=== PATIENT | male | born 1980 | race Caucasian/White ===

== ENCOUNTER 2022-06-14 14:04 | Emergency (ER) | payer MEDICARE, SELFPAY ==
[2022-06-14 14:11] VITALS: BP 197/121; PULSE 100; RESP 16; TEMP 36.7; O2SAT 95; BMI 28.8
--- NOTE | 2022-06-14 14:52 | ED_ITS ---
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 He states that he does not have any feeling in his legs and denies any warmth, fever, feelings of illness, swelling or odor coming from his foot. He states he is had history of chronic wounds and significant wounds and he recently moved to the area without access to instructional leader. States that this callus has been shaved off many times by Podiatry in the past, he has used his right lower extremity orthotic brace for the last 1-2 years he states. He states this is an area where he thinks is rubbing because it always comes back. He establish care with Dr. Taurus Garcia and his upcoming primary care appointment is 07/06/2022. He does not yet have a instructional leader here. Related Data Previous Rx's Medication Instructions Recorded mupirocin 2 % topical ointment 1 applic topical BID #15 grams 06/14/22 Allergies Allergy/AdvReac Type Severity Reaction Status Date / Time acetaminophen [From Vicodin] AdvReac Mild Nausea Verified 06/14/22 14:17 hydrocodone [From Vicodin] AdvReac Mild Nausea Verified 06/14/22 14:17 Review of Systems <LIBBY Sewell - Last Filed: 06/14/22 14:58> Review of Systems Narrative: Review of systems is negative for acute abnormalities unless otherwise noted in HPI Patient History <LIBBY Sewell - Last Filed: 06/14/22 14:58> Social History Smoking Status: Never smoker Smoking Status: Never smoker alcohol intake frequency: 0-2 drinks per day Substance Use Type: marijuana Exam <LIBBY Sewell - Last Filed: 06/14/22 14:58> Narrative Exam Narrative: Reviewed vitals signs and nursing notes. General: cooperative, comfortable, in no acute distress, well groomed, in wheelchair HEENT: symmetrical facial expressions, moist mucous membranes Cardiovascular: regular rate and rhythm, no peripheral edema, warm extremities MSK: moves all extremities, neurovascularly intact, no new weakness. Right lateral foot with bony callus over proximal metatarsal, foot is contracted and patient does not have any sensation at baseline, brisk cap refill, palpable pulses, no edema, erythema, warmth, drainage. Skin: brisk capillary refill, without pallor or erythema Neuro: normal speech and cognition, A&O x3, ambulatory, clear speech Psych: mental status is grossly normal, congruent mood, normal affect, pleasant and cooperative Initial Vital Signs Initial Vital Signs: Vital Signs Temperature 98.1 F 06/14/22 14:11 Pulse Rate 100 H 06/14/22 14:11 Respiratory Rate 16 06/14/22 14:11 Blood Pressure 197/121 H 06/14/22 14:11 Pulse Oximetry 95 06/14/22 14:11 Oxygen Delivery Method 06/14/22 14:11 <Earnestine Lopez DO - Last Filed: 06/15/22 09:24> Initial Vital Signs Initial Vital Signs: Vital Signs Temperature 98.1 F 06/14/22 14:11 Pulse Rate 100 H 06/14/22 14:11 Respiratory Rate 16 06/14/22 14:11 Blood Pressure 197/121 H 06/14/22 14:11 Pulse Oximetry 95 06/14/22 14:11 Oxygen Delivery Method 06/14/22 14:11 Course <LIBBY Sewell - Last Filed: 06/14/22 14:58> Orders Ordered: ED Orders 06/14/22 14:31 Consult to Orthopedic Surgery Urgent Vital Signs Vital signs: Vital Signs - 8 hr 06/14/22 14:11 Temperature 98.1 F Pulse Rate 100 H Respiratory Rate 16 Blood Pressure 197/121 H Pulse Oximetry 95 Oxygen Delivery Method Room Air <Earnestine Lopez DO - Last Filed: 06/15/22 09:24> Orders Ordered: ED Orders 06/14/22 14:31 Consult to Orthopedic Surgery Urgent Vital Signs Vital signs: Vital Signs - 8 hr 06/14/22 14:11 Temperature 98.1 F Pulse Rate 100 H Respiratory Rate 16 Blood Pressure 197/121 H Pulse Oximetry 95 Oxygen Delivery Method Room Air MDM - Wound/Laceration <Sanjana FrazierLIBBY - Last Filed: 06/14/22 14:58> [facility] Narrative Medical decision making narrative: This is a 41-year-old male with history of spina bifida and right lower extremity brace who presents to the emergency department with concern about drainage from his right lateral foot callus which is likely from his right lower extremity brace that he wears daily. He has history of left BKA, history of wound infections and came in with concern for infection. There is no warmth, erythema, fluctuance, induration, drainage, or any sign of infection at all. There was no drainage to culture and this appears most like a bony callus without evidence of abscess, cellulitis, malignancy, ulcer, or infection. Patient has an upcoming primary care appointment with Dr. Taurus Garcia on 07/06/2022, a consultation was placed for follow-up with Dr. Krupa Torre from [facility] for Podiatry assessment and orthotic evaluation. Recommend patient have a biopsy of this if this is persistent and not due to his lower extremity splint. Patient is appropriate and amenable to discharge home. Vital signs are stable on repeat examination is unremarkable. Patient has been informed of results. Patient has been given strict return to ER precautions for any new or worsening symptoms. Patient understands to follow up closely with outpatient providers as instructed. Patient understands plan and agrees to discharge home. All questions and concerns answered at this time. Discharge Plan Departure Patient Disposition: Home Clinical Impression: Bony callus Instructions: Calluses and Corns Activity Restrictions/Additional Instructions: *You have been diagnosed with a bony callus or corn. This is most likely rela irina to your lower extremity brace. I placed a consult for Podiatry with Dr. Torre at [facility]. Please call and make an appointment for follow-up. Please apply a Band-Aid with antibiotic ointment and change morning and night, please keep this on while you wear your brace and see if this is helpful. It may be dry and cracked and that is where the drainage come from. If this is not helpful for you, I did improves then please forget about dermatology. See what Dr. Torre has to say about it first. Please call Dr. Garcia as needed beforehand but this should do the trick so you can make an appointment with Dr. Torre. I hope you feel better soon. *What to do: *Please continue to take your regular medications as directed. [ x] New medication prescriptions sent to your pharmacy: [[facility]] [ ] New medication written as a paper prescription [ ] No new medications given *Please follow up with your primary care provider in 2-3 days, call for an appointment. Let them know you were seen in the Emergency Department and that we asked that you be seen for follow-up. We will electronically transmit a record of today's note if your PCP is in our system *If you do not have a primary care provider please contact [phone] to establish care with one of the [facility] primary care providers. *Return to Emergency Department if you should have any new, worsening, or concerning symptoms, such as [fever greater than 101F, chills, worsening pain, persistent vomiting or other bothersome symptoms]. Prescriptions: New mupirocin 2 % ointment 1 applic topical BID Qty: 15 0RF Referrals: Krupa Torre DPM [Physician] - Yair Garcia DO [Primary Care Provider] - Visit Report Forms: Patient Portal/API <Earnestine Lopez DO - Last Filed: 06/15/22 09:24> [facility] I was immediately available in the department for consultation. Documentation has been reviewed. I agree with assessment and plan.
== END 2022-06-14 14:56 | disposition home or self-care (01) ==
PROVIDERS: Emergency Provider Nurse Practitioner Critical Care Medicine; PCP Family Medicine
DX: M25.774 Osteophyte, right foot (principal)
CPT/HCPCS: 99281

== ENCOUNTER 2022-06-15 18:35 | Inpatient (IN) | payer MEDICARE, OTHER, SELFPAY ==
[2022-06-15 18:47] VITALS: BP 202/117; PULSE 93; RESP 16; TEMP 36.9; O2SAT 97; BMI 28.8
--- NOTE | 2022-06-15 21:24 | ED.EXTPRO ---
HPI - Extremity Problem General Chief complaint: Extremity Problem,Nontraumatic Stated complaint: Right elbow pain, Warm, Swollen Time Seen by Provider: 06/15/22 21:24 Source: patient Mode of arrival: Wheelchair History of Present Illness HPI Narrative: 41-year-old male nonsmoker with noncontributory medical history presents with a chief complaint of right elbow pain with redness and warmth of the skin overlying the olecranon over the past day or 2. He denies any obvious injury or overuse. He denies any fever, chills nor nausea or vomiting. He is not dizzy, weak or lightheaded. He is got increased pain with range of motion and improvement with rest. He denies any chest pain or shortness of breath. Related Data Home Medications Medication Instructions Recorded Confirmed mupirocin 2 % topical ointment 1 ea topical BID 06/16/22 06/16/22 Allergies Allergy/AdvReac Type Severity Reaction Status Date / Time hydrocodone [From Vicodin] AdvReac Mild Nausea Verified 06/16/22 15:58 Review of Systems Review of Systems Narrative: GENERAL: Denies chills, fatigue, malaise, fever, sweats. HEENT: Denies sinus pain, ear pain, sore throat, difficulty swallowing, dizziness. RESPIRATORY: Denies dyspnea, cough, wheezing, hemoptysis, sputum. CARDIOVASCULAR: Denies chest pain, palpitations, orthopnea, edema, GASTROINTESTINAL: Denies nausea, vomiting, abdominal pain, diarrhea, constipation, melena. : Denies dysuria, frequency, incontinence, hematuria, urinary retention. MUSCULOSKELETAL: See HP SKIN: See HPI NEUROLOGIC: Denies weakness, headache, numbness, change in speech, confusion, seizures, incoordination. PSYCHIATRIC: No concerning psychosocial issues. 12 point review of systems is negative except for those stated above Patient History Medical History History of left below knee amputation Sacral decubitus ulcer Spina bifida Social History household members: family Smoking Status: Never smoker alcohol intake: current Smoking Status: Never smoker alcohol intake frequency: holidays/special occasions only Substance Use Type: marijuana Exam Narrative Exam Narrative: GENERAL: [41] year old patient appears stated age. Well-developed patient, in mild distress. HEAD: Atraumatic. Normocephalic. EYES: Pupils equal round and reactive. Extraocular motions intact. No scleral icterus. No injection or drainage. ENT: Nose without bleeding, purulent drainage. Throat without erythema, tonsillar hypertrophy or exudate. Airway patent. NECK: Trachea midline. Non tender CARDIOVASCULAR: Regular rate and rhythm without murmurs, gallops, or rubs. RESPIRATORY: Clear to auscultation. Breath sounds equal bilaterally. No wheezes, rales, or rhonchi. GASTROINTESTINAL: Abdomen soft, non-tender, nondistended. EXTREMITIES: Full but slightly painful range of motion of right elbow with erythema, warmth and mild swelling overlying the olecranon. Patient has full pronation and supination and most range of motion through flexion and extension, septic arthritis is thought to be extremely unlikely. No pain or swelling of upper arm. There is a small break in the skin overlying the bursa, nose induration or fluctuance BACK: Nontender without deformity or crepitance. No flank tenderness. NEURO: AOx3. SKIN: No rash or erythema of visible areas Initial Vital Signs Initial Vital Signs: Vital Signs Temperature 98.5 F 06/15/22 18:47 Pulse Rate 93 H 06/15/22 18:47 Respiratory Rate 16 06/15/22 18:47 Blood Pressure 202/117 H 06/15/22 18:47 Pulse Oximetry 97 06/15/22 18:47 Oxygen Delivery Method 06/15/22 18:47 Procedures Joint Aspiration Joint Asp./Inject. 1: Side of body: right Joint Aspirated: elbow Ultrasound Guidance: No Skin Prep: sterile prep and drape Local Anesthetic: bupivacaine 0.5% Amount of anesthesia used (mL): 4 Needle Size Used: 22G Fluid Obtained: turbid Total fluid obtained (mL): 15 Patient Tolerated Procedure: Well Complications: none Course Orders Ordered: Docusate Sodium (Docusate 100 Mg Capsule) 100 mg PO BID [facility] Last Admin: 06/16/22 20:21 Dose: 100 mg Documented By: PAT Heparin Sodium (Porcine) (Heparin 5,000 Unit/Ml Vial) 5,000 unit SUBCUT BID [facility] Last Admin: 06/16/22 20:21 Dose: 5,000 unit Documented By: PAT Hydromorphone HCl (Hydromorphone 0.5 Mg Inj) 0.5 mg IV Q1H PRN PRN Reason: Pain, Moderate (4-6) Last Admin: 06/17/22 04:28 Dose: 0.5 mg Documented By: Admin: 06/17/22 01:26 Dose: 0.5 mg Documented By: Admin: 06/16/22 21:53 Dose: 0.5 mg Documented By: Admin: 06/16/22 18:24 Dose: 0.5 mg Documented By: LADONNA Lactated Ringer's (Lactated Ringers) 1,000 mls @ 100 mls/hr IV CONT [facility] Last Admin: 06/16/22 18:00 Dose: 100 mls/hr Documented By: LADONNA Vancomycin HCl (Vancomycin) 1,250 mg in 250 mls @ 250 mls/hr IV Q8H [facility] Last Admin: 06/17/22 01:33 Dose: 250 mls/hr Documented By: Infusion: 06/16/22 19:15 Dose: 250 mls/hr Documented By: Admin: 06/16/22 18:15 Dose: 250 mls/hr Documented By: LADONNA Naloxone HCl (Naloxone 0.4 Mg/Ml Vial) 0.2 mg IV Q2MIN PRN PRN Reason: Opiate Reversal Ondansetron HCl (Ondansetron 4 Mg Odt) 4 mg PO Q4HR PRN PRN Reason: Nausea And Vomiting Oxycodone HCl (Oxycodone Ir 5 Mg Tablet) 5 mg PO Q3HR PRN PRN Reason: Pain, Mild (1-3) Last Admin: 06/17/22 00:31 Dose: 5 mg Documented By: PAT Oxycodone HCl (Oxycodone Ir 10 Mg Tablet) 10 mg PO Q3HR PRN PRN Reason: Pain, Moderate (4-6) Last Admin: 06/17/22 02:52 Dose: 10 mg Documented By: PAT Vancomycin HCl (Vancomycin Trough) 1 request MIS 1730 [facility] Stop: 06/17/22 17:31 Vancomycin HCl (Vancomycin Peak) 1 [place] [facility] [place] [facility] Stop: 06/17/22 20:01 Discontinued Medications Acetaminophen (Acetaminophen 325 Mg Tablet) 975 mg PO PACUNOW PRN PRN Reason: Pain, Mild (1-3) Last Admin: 06/16/22 17:01 Dose: 975 mg Documented By: LULY Benzocaine (Benzocaine/Menthol 1 Malcom Pkt) 1 each PO PRN PRN PRN Reason: Sore Throat Bupivacaine HCl (Bupivacaine 0.5% (Pf) Vial) 5 ml SUBCUT NOW ONE Stop: 06/15/22 23:03 Last Admin: 06/15/22 23:17 Dose: 5 ml Documented By: PHILLIP Bupivacaine HCl/Epinephrine Bitart (Bupivacaine 0.25% W/ Epi 30 Ml Vial) 30 ml INJ NOW ONE Stop: 06/16/22 15:58 Last Admin: 06/16/22 15:58 Dose: 8 ml Documented By: NATALI Fentanyl (Fentanyl 100 Mcg/2 Ml Inj) 0 mcg IV Q5M PRN PRN Reason: Pain, Moderate (4-6) Hydromorphone HCl (Hydromorphone 0.5 Mg Inj) 0.5 mg IV NOW ONE Stop: 06/16/22 02:36 Last Admin: 06/16/22 02:56 Dose: 0.5 mg Documented By: PAT Hydromorphone HCl (Hydromorphone 0.5 Mg Inj) 0.5 mg IV Q2H PRN PRN Reason: Pain, Moderate (4-6) Last Admin: 06/16/22 12:14 Dose: 0.5 mg Documented By: Admin: 06/16/22 09:13 Dose: 0.5 mg Documented By: Admin: 06/16/22 06:09 Dose: 0.5 mg Documented By: PAT Hydromorphone HCl (Hydromorphone 2 Mg Inj) 0 mg IV Q5M PRN PRN Reason: Pain, Moderate (4-6) Last Admin: 06/16/22 16:37 Dose: 0.5 mg Documented By: LULY Hydromorphone HCl (Hydromorphone 1 Mg Inj) 0.5 mg IV Q1H PRN PRN Reason: Pain, Moderate (4-6) Hydroxyzine HCl (Hydroxyzine 50 Mg/Ml Inj) 25 mg IM NOW PRN PRN Reason: Pain, Mild (1-3) Hydroxyzine Pamoate (Hydroxyzine Pamoate 25 Mg Capsule) 25 mg PO NOW PRN PRN Reason: Pain, Mild (1-3) Sodium Chloride (Normal Saline 0.9%) 500 mls @ 1,000 mls/hr IV BOLUS ONE Stop: 06/16/22 02:40 Last Infusion: 06/16/22 07:49 Dose: 0 mls/hr Documented By: Admin: 06/16/22 03:23 Dose: 1,000 mls/hr Documented By: PAT Vancomycin HCl/Dextrose (Vancomycin) 2,000 mg in 400 mls @ 200 mls/hr IV NOW ONE Stop: 06/16/22 04:34 Last Infusion: 06/16/22 07:48 Dose: 0 mls/hr Documented By: Admin: 06/16/22 02:56 Dose: 200 mls/hr Documented By: PAT Lactated Ringer's (Lactated Ringers) 1,000 mls @ 42 mls/hr IV CONT [facility] Last Admin: 06/16/22 14:08 Dose: 42 mls/hr Documented By: KAYLEIGH Vancomycin HCl/Dextrose (Vancomycin) 2,000 mg in 400 mls @ 200 mls/hr IV NOW ONE Stop: 06/16/22 16:47 Last Admin: 06/16/22 17:44 Dose: Not Given Documented By: LADONNA Cefazolin Sodium/Dextrose (Ancef) 100 mls @ 200 mls/hr IV NOW ONE Stop: 06/16/22 16:25 Last Infusion: 06/16/22 15:40 Dose: 0 mls/hr Documented By: KAYLEIGH(2) Admin: 06/16/22 15:26 Dose: 200 mls/hr Documented By: KAYLEIGH(2) Lactated Ringer's (Lactated Ringers) 1,000 mls @ 42 mls/hr IV CONT [facility] Last Admin: 06/16/22 17:44 Dose: Not Given Documented By: LADONNA Lactated Ringer's (Lactated Ringers) 1,000 mls @ 120 mls/hr IV CONT [facility] Last Admin: 06/16/22 17:44 Dose: Not Given Documented By: LADONNA Lorazepam (Lorazepam 2 Mg/Ml Inj) 0.25 mg IV NOW PRN PRN Reason: Anxiety Metoclopramide HCl (Metoclopramide 10 Mg/2 Ml Inj) 10 mg IV NOW PRN PRN Reason: Nausea And Vomiting Ondansetron HCl (Ondansetron 4 Mg/2 Ml Inj) 4 mg IV NOW ONE Stop: 06/16/22 02:36 Last Admin: 06/16/22 04:07 Dose: 4 mg Documented By: PAT Ondansetron HCl (Ondansetron 4 Mg/2 Ml Inj) 4 mg IV NOW PRN PRN Reason: Nausea And Vomiting Consultations Consultation #1: Discussed with on-call orthopedist given concern for possible septic arthritis. After discussion of history, physical including labs and imaging we agree that patient is appropriate for the operating room and Dr. Combs will take later today. Vital Signs Vital signs: Vital Signs - 8 hr 06/16/22 00:41 06/16/22 00:41 06/16/22 01:00 Pulse Rate 75 Blood Pressure 183/113 H 175/100 H Pulse Oximetry 97 06/16/22 01:00 06/16/22 01:15 06/16/22 01:15 Pulse Rate 85 84 Blood Pressure 177/98 H Pulse Oximetry 94 93 06/16/22 01:30 06/16/22 01:30 06/16/22 01:45 Pulse Rate 82 Blood Pressure 174/99 H 181/105 H Pulse Oximetry 93 06/16/22 01:45 06/16/22 02:00 06/16/22 02:00 Pulse Rate 91 H 91 H Blood Pressure 191/111 H Pulse Oximetry 96 95 06/16/22 02:23 06/16/22 02:23 Pulse Rate 90 Blood Pressure 180/118 H Pulse Oximetry 97 MDM - Extremity (Nontraumatic) Lab Data Result diagrams: 06/16/22 02:20 06/16/22 02:20 Labs: Lab Results 06/16/22 06/16/22 06/16/22 Range/Units 00:20 00:20 02:20 WBC 11.1 H (4.5-11.0) X10^3/uL RBC 5.00 (4.5-5.9) X10^6/uL Hgb 15.3 (13.5-17.5) g/dL Hct 45.1 (41-53) % MCV 90.3 (80-100) fL MCH 30.7 (26-34) PG MCHC 34.0 (30-36) % RDW 12.8 (11.6-14.8) % Plt Count 293 (150-400) X10^3/uL Neut % (Auto) 74.0 (50-75) % Lymph % (Auto) 15.8 L (25-40) % [place] % (Auto) 7.4 (3-14) % Eos % (Auto) 2.4 (2-4) % Baso % (Auto) 0.4 (0-2) % Neut # (Auto) 8200 H (2863-1125) /uL Lymph # (Auto) 1700 (1759-5312) /uL [place] # (Auto) 800 (0-900) /uL Eos # (Auto) 300 (0-450) /uL Baso # (Auto) 0 (0-100) /uL ESR 7 (0-15) MM/HR Sodium (137-145) mmol/L Potassium (3.4-5.1) mmol/L Chloride (98-107) mmol/L Carbon Dioxide (22-32) mmol/L BUN (9-20) mg/dL Creatinine (0.66-1.25) mg/dL Estimated GFR (>60) mL/min BUN/Creatinine Ratio (6-22) Glucose (70-100) mg/dL Calcium (8.4-10.2) mg/dL C-Reactive Protein (<1.0) mg/dL Fluid Color Yellow Fluid Appearance Cloudy Fluid RBC 6887 /uL Fld Tot Nucleated Cell 53294 /uL Fluid Polynuclear WBCs 99 % Fluid Mononuclear WBCs 1 % Fluid Eosinophils 0 % Fluid Other Cells 0 % Fluid Crystals None present (NONE) Body Fluid Clot Specimen clotted SARS-CoV-2 (PCR) (Negative) 06/16/22 06/16/22 Range/Units 02:20 02:20 WBC (4.5-11.0) X10^3/uL RBC (4.5-5.9) X10^6/uL Hgb (13.5-17.5) g/dL Hct (41-53) % MCV (80-100) fL MCH (26-34) PG MCHC (30-36) % RDW (11.6-14.8) % Plt Count (150-400) X10^3/uL Neut % (Auto) (50-75) % Lymph % (Auto) (25-40) % [place] % (Auto) (3-14) % Eos % (Auto) (2-4) % Baso % (Auto) (0-2) % Neut # (Auto) (2650-8214) /uL Lymph # (Auto) (2299-2530) /uL [place] # (Auto) (0-900) /uL Eos # (Auto) (0-450) /uL Baso # (Auto) (0-100) /uL ESR (0-15) MM/HR Sodium 140 (137-145) mmol/L Potassium 4.3 (3.4-5.1) mmol/L Chloride 107 (98-107) mmol/L Carbon Dioxide 26 (22-32) mmol/L BUN 13 (9-20) mg/dL Creatinine 0.75 (0.66-1.25) mg/dL Estimated GFR > 60 (>60) mL/min BUN/Creatinine Ratio 17.3 (6-22) Glucose 124 H (70-100) mg/dL Calcium 9.4 (8.4-10.2) mg/dL C-Reactive Protein 2.7 H (<1.0) mg/dL Fluid Color Fluid Appearance Fluid RBC /uL Fld Tot Nucleated Cell /uL Fluid Polynuclear WBCs % Fluid Mononuclear WBCs % Fluid Eosinophils % Fluid Other Cells % Fluid Crystals (NONE) Body Fluid Clot SARS-CoV-2 (PCR) Negative (Negative) Discharge Plan Departure Patient Disposition: Admitted to Surgery Clinical Impression: Septic bursitis of elbow Admit Date/Time: 06/16/22 03:06 Admit Provider: Claudine Combs
--- NOTE | 2022-06-15 21:32 | DI.RAD.S_ITS ---
PROCEDURE: XR ELBOW RT MIN 3V INDICATIONS: pain, swelling, redness TECHNIQUE: 3 views of the elbow were acquired. COMPARISON: None. FINDINGS: Bones: No fractures or dislocations. No discrete bony erosions. No suspicious bony lesions. Soft tissues: There is a small to moderate elbow joint effusion. No suspicious soft tissue calcifications. IMPRESSION: 1. Small to moderate elbow joint effusion is nonspecific. Given clinical history, septic arthritis cannot be excluded. Dictated by: Nemesio Grimaldo M.D. on 06/15/2022 at 22:49 Approved by: Nemesio Grimaldo M.D. on 06/15/2022 at 22:50
--- NOTE | 2022-06-15 21:35 | DI.US.S_ITS ---
PROCEDURE: US PERIPH VENOUS UP EXTREM RT INDICATIONS: PAIN AND SWELLING TECHNIQUE: Real-time imaging, as well as color and pulse Doppler interrogation, was performed of the right upper extremity deep veins from the inferior neck to the antecubital fossa. COMPARISON: None. FINDINGS: The internal jugular vein, visualized portions of the subclavian vein, axillary, and brachial veins are free of intraluminal thrombus. Where physically possible, the veins are normally compressible. Color and pulse Doppler demonstrate normal intraluminal flow, with expected phasicity and pulsatility. Additional scanning of the cephalic and basilic veins of the superficial system demonstrate normal compressibility, without thrombus. There is a fluid collection demonstrated anteriorly in the right elbow measuring approximately 3.4 x 6.2 x 0.9 cm. Findings are incompletely evaluated on the current study but suggestive of an elbow joint effusion. IMPRESSION: 1. No evidence of deep venous thrombosis in the right upper extremity. 2. Suspected elbow joint effusion. Dictated by: Nemesio Grimaldo M.D. on 06/15/2022 at 23:43 Approved by: Nemesio Grimaldo M.D. on 06/15/2022 at 23:45
[2022-06-15] MEDS: BUPIVACAINE 0.5% (PF) VIAL 5 ML SUBCUT (23:17)
[2022-06-16] VITALS (49 sets, daily range): BP systolic 127–191; BP diastolic 73–118; PULSE 63–101; RESP 11–21; TEMP 35.9–36.6; O2SAT 88–99; BMI 28.8
[2022-06-16 01:43] LABS: Body Fluid Appearance CLOUDY; Body Fluid Clotted? SPECIMEN CLOTTED; Body Fluid Color YELLOW; Body Fluid Red Blood Cells 6887 /uL; Body Fluid Tot Nucleated Cells 45988 /uL; Eosinophils Body Fluid 0 %; Mononuclear WBC Body Fluid 1 %; Other Cells Body Fluid 0 %; Polynuclear WBC Body Fluid 99 %
[2022-06-16 02:38] LABS: Add Manual Diff / Slide Review NO; Basophils Absolute Auto 0 /uL (0-100); Basophils Percent Auto 0.4 % (0-2); Eosinophils Absolute Auto 300 /uL (0-450); Eosinophils Percent Auto 2.4 % (2-4); Hematocrit 45.1 % (41-53); Hemoglobin 15.3 g/dL (13.5-17.5); Lymphocytes Absolute Auto 1700 /uL (1100-4500); Lymphocytes Percent Auto 15.8 % (25-40); Mean Corpuscular Hemoglobin 30.7 PG (26-34); Mean Corpuscular Volume 90.3 fL (80-100); Monocytes Absolute Auto 800 /uL (0-900); Monocytes Percent Auto 7.4 % (3-14); Neutrophils Absolute Auto 8200 /uL (1500-7000); Platelet Count 293 X10^3/uL (150-400); Red Cell Distribution Width 12.8 % (11.6-14.8); White Blood Cell Count 11.1 X10^3/uL (4.5-11.0)
[2022-06-16 02:56] LABS: BUN Creatinine Ratio 17.3 (6-22); Blood Urea Nitrogen 13 mg/dL (9-20); C-Reactive Protein Quant 2.7 mg/dL (<1.0); Calcium 9.4 mg/dL (8.4-10.2); Carbon Dioxide 26 mmol/L (22-32); Chloride 107 mmol/L (98-107); Estimated Glomerular Filt Rate > 60 mL/min (>60); Glucose 124 mg/dL (70-100); HEMOLYSIS < 15 (0-50); Potassium 4.3 mmol/L (3.4-5.1); Sodium 140 mmol/L (137-145)
[2022-06-16] MEDS: VANCOMYCIN 2,000 MG/400 ML PIGGYBACK 200 MG IV (02:56)
[2022-06-16] MEDS: HYDROMORPHONE 0.5 MG INJ IV ×6 (02:56→21:53)
[2022-06-16 03:01] LABS: COVID19 -Nasal RAPID Negative (Negative)
[2022-06-16 03:06] LABS: Erythrocyte Sedimentation Rate 7 MM/HR (0-15)
[2022-06-16] MEDS: SODIUM CHLORIDE 0.9% 500 ML 1000 ML IV (03:23)
[2022-06-16] MEDS: ONDANSETRON 4 MG/2 ML INJ IV (04:07)
[2022-06-16 06:34] LABS: Crystals Body Fluid - IN-HOUSE NONE Present
--- NOTE | 2022-06-16 07:18 | PM.HP.1 ---
History of Present Illness History of Present Illness Date Patient Seen: 06/16/22 Time Patient Seen: 10:25 Date of Onset of Symptoms: 06/15/22 Chief complaint: Right elbow pain, Warm, Swollen Narrative: 41 yo M hx spina bifida, uses wheel chair, that presents with R elbow pain, swelling. Hx of infections in other areas and toe amputations, left BKA, history of flaps for sacral decubitus ulcers.Recently moved from [place]. Lives with his mother. Works at [employer] ER eval demonstrated effusion, aspiration had 45K cells and 99% PMNs highly suspicious for infection, no organisms or crystals were seen. Pt admitted to Ortho for I&D septic arthritis R elbow. Denies fevers chills. Recently moved. See PCP appointment in a few weeks. Was then ER couple days ago seen for a callus on his right foot lateral border no site of infection and will be following up with the dough braker. Uses the AFO on this side for transfers. He has a prosthetic on the left side status post BKA. Uses lower extremities for transfers otherwise wheelchair dependent Patient History Medical History History of left below knee amputation Sacral decubitus ulcer Spina bifida Family & Social History Safety & Behavioral: Feels Safe in Current Yes Environment Been Physically Hurt or No Threatened By a Person Tobacco & Substance use: Smoking Status Never smoker alcohol intake frequency holiday/special occasion Substance Use Type marijuana Meds Home Medications and Allergies Home Medications Medication Instructions Recorded Confirmed Type mupirocin 2 % topical ointment 1 applic topical BID #15 grams 06/14/22 Rx Allergies Allergy/AdvReac Type Severity Reaction Status Date / Time acetaminophen [From Vicodin] AdvReac Mild Nausea Verified 06/15/22 18:47 hydrocodone [From Vicodin] AdvReac Mild Nausea Verified 06/15/22 18:47 Review of Systems Review of Systems Narrative: Spina bifida. Insensate lower extremities. History of left below-knee amputation. History partial great toe amputation on the right. callus and deformity foot on the right. Wheelchair dependency. Lower extremities for transfer only. No fevers chills nausea or vomiting. No heart or lung problems. History of sacral decubitus ulcer status post flap reconstruction. No chest pain no nausea no vomiting. Ten point review of systems otherwise negative Exam Vital Signs (past 8 hours): - 06/16/22 00:41 06/16/22 00:41 06/16/22 01:00 Pulse Rate 75 Blood Pressure 183/113 H 175/100 H Pulse Oximetry 97 06/16/22 01:00 06/16/22 01:15 06/16/22 01:15 Pulse Rate 85 84 Blood Pressure 177/98 H Pulse Oximetry 94 93 06/16/22 01:30 06/16/22 01:30 06/16/22 01:45 Pulse Rate 82 Blood Pressure 174/99 H 181/105 H Pulse Oximetry 93 06/16/22 01:45 06/16/22 02:00 06/16/22 02:00 Pulse Rate 91 H 91 H Blood Pressure 191/111 H Pulse Oximetry 96 95 06/16/22 02:23 06/16/22 02:23 06/16/22 02:30 Pulse Rate 90 Blood Pressure 180/118 H 176/112 H Pulse Oximetry 97 06/16/22 02:30 06/16/22 02:45 06/16/22 02:45 Pulse Rate 89 86 Blood Pressure 164/107 H Pulse Oximetry 95 94 06/16/22 03:00 06/16/22 03:00 06/16/22 03:30 Pulse Rate 92 H 101 H Blood Pressure 163/105 H Pulse Oximetry 95 94 06/16/22 03:31 06/16/22 03:31 06/16/22 03:45 Pulse Rate 101 H 96 H Blood Pressure 186/101 H Pulse Oximetry 94 92 06/16/22 03:45 06/16/22 04:00 06/16/22 04:00 Pulse Rate 94 H Blood Pressure 187/94 H 181/95 H Pulse Oximetry 91 06/16/22 04:15 06/16/22 04:15 06/16/22 04:30 Pulse Rate 93 H Blood Pressure 180/84 H 156/73 H Pulse Oximetry 89 L 06/16/22 04:30 06/16/22 04:46 06/16/22 04:46 Pulse Rate 91 H 97 H Blood Pressure 183/96 H Pulse Oximetry 90 L 92 Oxygen Delivery Method Room Air Narrative Exam Narrative: Alert oriented male no acute distress. Lying in bed. His prosthetic on the left lower extremity from below-knee amputation. There is and solid AFO on the right lower extremity. Varus foot deformity with the pressure head callus and a superficial ulceration on the lateral border of the foot. No appearance of infection. AFO is worn and old appearing. General exam is alert oriented male no acute distress Respiratory exam is unlabored on room air lungs clear to auscultation Heart regular rate and rhythm HEENT exam normocephalic atraumatic Upper extremity examination. Right upper extremity demonstrates swelling at the elbow. No bursitis. There is a Band-Aid over the area of the lateral aspiration. There is tenderness to palpation at the level of the joint. Moderate tenderness with range of motion and supination pronation. Able to go from 0 extension to 70? of flexion. Significant pain beyond this. No blisters. No open wounds. Demonstrates full wrist and finger range of motion. Normal range of motion left upper extremity Lower extremities. The left lower extremity with prosthetic in place status post BKA Right lower extremity in AFO partial great toe amputation. Callus with a central ulceration superficial on lateral border of foot. No erythema or signs of infection. Insensate lower extremities Objective Imaging X-ray right elbow: My impression: Three views right elbow AP oblique lateral demonstrate no fractures or dislocations. effusion is present. Labs Result Diagrams: 06/16/22 02:20 06/16/22 02:20 Labs: Laboratory Results - last 24 hr 06/16/22 06/16/22 06/16/22 00:20 00:20 02:20 WBC 11.1 H RBC 5.00 Hgb 15.3 Hct 45.1 MCV 90.3 MCH 30.7 MCHC 34.0 RDW 12.8 Plt Count 293 Neut % (Auto) 74.0 Lymph % (Auto) 15.8 L Redwood % (Auto) 7.4 Eos % (Auto) 2.4 Baso % (Auto) 0.4 Neut # (Auto) 8200 H Lymph # (Auto) 1700 [place]wood # (Auto) 800 Eos # (Auto) 300 Baso # (Auto) 0 ESR 7 Sodium Potassium Chloride Carbon Dioxide BUN Creatinine Estimated GFR BUN/Creatinine Ratio Glucose Calcium C-Reactive Protein Fluid Color Yellow Fluid Appearance Cloudy Fluid RBC 6887 Fld Tot Nucleated Cell 14525 Fluid Polynuclear WBCs 99 Fluid Mononuclear WBCs 1 Fluid Eosinophils 0 Fluid Other Cells 0 Fluid Crystals None present Body Fluid Clot Specimen clotted SARS-CoV-2 (PCR) 09/02/22 09/02/22 02:20 02:20 WBC RBC Hgb Hct MCV MCH MCHC RDW Plt Count Neut % (Auto) Lymph % (Auto) Redwood % (Auto) Eos % (Auto) Baso % (Auto) Neut # (Auto) Lymph # (Auto) Redwood # (Auto) Eos # (Auto) Baso # (Auto) ESR Sodium 140 Potassium 4.3 Chloride 107 Carbon Dioxide 26 BUN 13 Creatinine 0.75 Estimated GFR > 60 BUN/Creatinine Ratio 17.3 Glucose 124 H Calcium 9.4 C-Reactive Protein 2.7 H Fluid Color Fluid Appearance Fluid RBC Fld Tot Nucleated Cell Fluid Polynuclear WBCs Fluid Mononuclear WBCs Fluid Eosinophils Fluid Other Cells Fluid Crystals Body Fluid Clot SARS-CoV-2 (PCR) Negative Assessment & Plan Assessment and plan (1) Septic arthritis of elbow, right: Status: Acute Plan NPO for I&D septic arthritis R elbow-- right now OR time around 1:15 pm Saturday 06/16. NPO except meds. scheduled empiric abx. plan to narrow when cultures final. anticipate approx 6 weeks IV abx for septic arthritis CRP 2.7 Cell count 45,000 in with left shift 99% PMNs Regarding foot callus patient will see podiatry outpatient for continued care no signs of infection at the foot. Suspect will need padding and repadding or alteration of his current AFO to reduce pressure in that area. Discussed return to work. 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 I discussed with keep him off for at least 2 weeks and if the IV antibiotic protocol is amenable could potentially return to work once his incision is healed but would plan for at least 2 weeks off of work activities and limited lifting with the left upper extremity until the incision heals up beyond ADLs The risks and benefits of the procedure have been discussed with the patient even opportunity to ask questions. The risks of surgery include but are not limited to infection, malunion, nonunion, persistence of pain, damage to nerves and blood vessels, posttraumatic arthritis, DVT, PE, cardiopulmonary complications and . The patient expressed a thorough understanding of the risks and benefits of surgery and has elected to proceed. Consent was signed. COVID-19 COVID-19 status: Negative Result date/Date tested (Pos, Neg/Pending): 06/16/22 Time Spent With Patient Time with patient: less than 30 minutes Critical Care time: I spent a total of [] minutes of critical care time on this patient's care today; this time is exclusive of procedural time. Quality VTE Deep Vein Thrombosis/Pulmonary Embolism Present on Admission: No
--- NOTE | 2022-06-16 09:55 | PC.NURSE ---
placed on 2L O2 for SPO2 87-88% when sleeping. vitals completed. medicated for pain with improvement from 03/24 to 01/22. appears more comfortable. pt advised of NPO status and pending OR around 1300.
[2022-06-16] MEDS: LACTATED RINGERS 1,000 ML 42 ML IV (14:08)
--- NOTE | 2022-06-16 14:49 | PC.NURSE ---
Pt arrived from ED A&OX3, VSS, afebrile on RA at 1300. He reports mild tenderness to R elbow after pain medication administered in ED. He is assessed and settled into room and then taken to Pre OP at 1330. He states he had been NPO since early in the day 06/15/22.
[2022-06-16] MEDS: CEFAZOLIN 2 GM/100 ML PREMIX 100 ML IV (15:26)
--- NOTE | 2022-06-16 15:39 | SUR.OPER ---
Supine on padded OR bed, head on pillow, left arm secured on padded arm boards at <90 degrees abduction, right arm on arm board with folded blankets, sterile draped and in control of the Surgeon. legs uncrossed, safety belt at thigh, tape over blanket over right lower leg. Pillow under knees, gel pad under right heel.
[2022-06-16] MEDS: BUPIVACAINE 0.25% W/ EPI 30 ML VIAL INJ (15:58)
--- NOTE | 2022-06-16 16:25 | P.OP_ITS ---
Operative Date/Time/Diagnoses Date of procedure: 06/16/22 Time of procedure: 14:25 Pre-op diagnosis: Right elbow septic arthritis Spina bifida Post-op diagnosis: same Procedure & Clinicians Procedure: Arthrotomy and drainage, irrigation septic arthritis right elbow joint CPT code 95343 Same procedure as scheduled: Yes Indications: The patient is a 41-year-old male with a history of spina bifida that presents with acute onset right elbow pain and swelling. He is right-hand dominant. He is wheelchair-bound. He has a history of a left below-knee amputation for infection and right toe amputations for infection. He has also had flaps for sacral decubitus ulcers in the distant past. No recent infections to his knowledge. Recently moved up from [place]. Works at [employer]. He had a 2 day history of increased pain and swelling to the right elbow was brought in and found to have an effusion. This was aspirated in the emergency room which came back with 45,000 cells 99% PMNs. No organisms were seen. No crystals were seen. Due to the high % of PMNs and high cell count he was felt to have high suspicion for septic arthritis and was indicated for operative arthrotomy drainage and washout. He was placed on empiric antibiotics. The risks and benefits of the procedure have been discussed with the patient given the opportunity to ask questions. The risks of surgery include but are not limited to infection, need for additional procedures, persistence of pain, damage to nerves and blood vessels, posttraumatic arthritis, DVT, PE, cardiopulmonary complications and . The patient expressed a thorough understanding of the risks and benefits of surgery and has elected to proceed. Consent was signed . Surgeon: Claudine Combs Click Yes if Unassisted: Yes Anesthesia Type: General and Local Operative Notes Findings: Copious Murky yellow fluid on entry to the radiocapitellar joint. Closure Type: primary Specimen(s): other (Specimen sent for culture and sensitivity) Prosthetic devices, grafts, tissues, transplants, or devices: Medium Hemovac drain placed Applied: drain(s) (Medium Hemovac) Estimated Blood Loss (mL): 5 Blood products transfused: none Tourniquet time (min): 36 Procedure in detail: Patient was seen in the preoperative area the site of surgery marked informed consent confirmed. The patient was brought back to the operating room by the anesthesia team. General anesthetic was administered. The patient was positioned on the operative table supine. All bony prominences well padded. A well-padded brachial tourniquet was placed. The right upper extremities prepped and draped in standard sterile fashion. A formal time-out procedure was performed confirming the patient's side and site of surgery administration of appropriate preoperative antibiotics. The patient had been on scheduled vancomycin he received 2 g of Ancef preoperatively. Attention turned to the right upper extremity gravity was used for exsanguination the tourniquet raised on the arm to 250 mmHg and stayed elevated for 36 minutes. Local anesthetic was infiltrated subcutaneously. Approximately 5 cm incision from the lateral epicondyle towards the posterior border of the ulna across the location of the radiocapitellar joint was taken down through the skin. Next the fascia was opened. The common extensor origin was exposed. This was split in line with the greater of the radial head and but is directly down onto the joint capsule on penetration of the joint there was immediate return of murky yellow fluid. Careful retraction around the capsule allowed exposure of the capitellum and radial head no dissection was taken distal to the radial neck. Cultures were taken. Once the arthrotomy was completed with pulsatile lavage was then introduced and 3 L of saline was washed through the joint. Gloves were changed. Instruments were changed and a new drape placed down. This point the joint was inspected. Cartilage was intact the capitellum and the radial head. No loose bodies were noted. A medium Hemovac drain was opened and placed into the joint and exited out the skin laterally next the capsule was closed with PDS suture with care not to sew in the drain. Tourniquet was released. Hemostasis was achieved. Subcutaneous was closed with 2-0 PDS and 4-0 Monocryl and the skin closed with 4-0 nylon suture. The drain was secured with a Steri-Strip at the skin. Dressing was placed with Xeroform gauze, 4x4s and a Kerlix dressing. All counts were correct. Drapes removed the patient was taken to the recovery room in good condition. There no immediate complications from this procedure. Complications: none Post-operative Condition: stable Disposition: PACU Plan for aftercare: Patient will be admitted to the floor. He will be on scheduled IV antibiotics dosed by pharmacy this will be vancomycin. Antibiotics will be tailored based on cultures. Will be in the hospital until cultures finalized and will be scheduled for for IV and antibiotics at home. Will need a PICC line. Estimate 6 weeks of IV antibiotics for septic arthritis. On discharge home with IV antibiotics he Will need weekly labs with CMP, CBC with differential ESR and CRP for monitoring. Patient will follow up in Orthopedic Clinic in 2 weeks for suture removal. Will plan to keep him off work 2 weeks to reduce the load on his elbow allow for incision healing. Then may return if antibiotic dosing schedule allows. Drain will be removed on postop day 2
[2022-06-16] MEDS: HYDROMORPHONE 2 MG INJ IV (16:37)
[2022-06-16] MEDS: ACETAMINOPHEN 325 MG TABLET 975 MG PO (17:01)
[2022-06-16] MEDS: LACTATED RINGERS 1,000 ML 100 ML IV (18:00)
[2022-06-16] MEDS: VANCOMYCIN 1,250 MG/250 ML PIGGYBACK 250 MG IV (18:15)
--- NOTE | 2022-06-16 18:48 | PC.NURSE ---
Pt returned from PACU at 1715. A&Ox3, VSS, afebrile on RA. +CMS to R hand. He has emesis x1 which passes shortly after an hour, po zofran given. He is able to tolerate few bites of dinner and rest. Incontinent brief changed. Hemovac with minimal out put, dressing to R elbow c/d/i. He reports pain 5/10 controlled well with prn Hydromorphone 0.5mg IV prn. resting quietly easily arousable. SBP initally elevated 170'/100's when in pain. Continuous monitoring. LR at 100 ml/hr, vancomycin piggy back IV antibiotic infusing. Call light in place.
[2022-06-16] MEDS: HEPARIN 5,000 UNIT/ML VIAL 5000 UNIT SUBCUT (20:21)
[2022-06-16] MEDS: DOCUSATE 100 MG CAPSULE PO (20:21)
[2022-06-17] VITALS (9 sets, daily range): BP systolic 145–184; BP diastolic 91–127; PULSE 78–100; RESP 16–18; TEMP 36.3–36.8; O2SAT 93–96
[2022-06-17] MEDS: OXYCODONE IR 5 MG TABLET PO (00:31)
[2022-06-17] MEDS: HYDROMORPHONE 0.5 MG INJ IV ×6 (01:26→23:17)
[2022-06-17] MEDS: VANCOMYCIN 1,250 MG/250 ML PIGGYBACK 250 MG IV ×3 (01:33→17:55)
[2022-06-17] MEDS: OXYCODONE IR 10 MG TABLET PO ×5 (02:52→20:08)
[2022-06-17 05:55] LABS: BUN Creatinine Ratio 12.1 (6-22); Blood Urea Nitrogen 8 mg/dL (9-20); Calcium 8.4 mg/dL (8.4-10.2); Carbon Dioxide 24 mmol/L (22-32); Chloride 104 mmol/L (98-107); Estimated Glomerular Filt Rate > 60 mL/min (>60); Glucose 105 mg/dL (70-100); HEMOLYSIS < 15 (0-50); Sodium 136 mmol/L (137-145)
[2022-06-17 05:57] LABS: Hematocrit 39.6 % (41-53); Hemoglobin 13.6 g/dL (13.5-17.5); Mean Corpuscular HGB Conc 34.2 % (30-36); Mean Corpuscular Volume 90.8 fL (80-100); Platelet Count 240 X10^3/uL (150-400); Red Blood Cell Count 4.36 X10^6/uL (4.5-5.9); Red Cell Distribution Width 12.6 % (11.6-14.8); White Blood Cell Count 6.2 X10^3/uL (4.5-11.0)
[2022-06-17] MEDS: HEPARIN 5,000 UNIT/ML VIAL 5000 UNIT SUBCUT ×2 (08:26→20:10)
[2022-06-17] MEDS: DOCUSATE 100 MG CAPSULE PO ×2 (08:26→20:08)
[2022-06-17] MEDS: diphenhydrAMINE 25 MG TABLET 50 MG PO (08:30)
--- NOTE | 2022-06-17 10:04 | PT.IIE ---
Current Diagnoses Pyogenic arthritis, unspecified (06/16/22) Surgery Performed Operation Date: 06/16/22 13:15 Actual Procedures p I&D elbow infection(Right) - Claudine Combs MD Medical History (Last Reviewed 06/16/22 @ 10:31 by Claudine Combs MD) History of left below knee amputation Sacral decubitus ulcer Spina bifida Physical Therapy Inpatient Evaluation/Re-Eval M1 PT/OT-IP Prior Functional Status Start: 06/17/22 10:39 Freq: NEEDED Status: Active Protocol: Document 06/17/22 10:04 DLM (Rec: 06/17/22 11:22 DL [id number]) Medical Review Prior Functional Status Medical History Reviewed Yes Diet/Fluid Consistency Regular Communication WFL Mobility and Gait Uses manual wheelchair for mobility, he transfers with his right AFO and left LE prosthesis, he can transfer on /off floor and scoot to get to places his wheelchair does not fit Activities of Daily Living and IADL's Independent with basic ADL's. His Mother is doing the cooking and cleaning. Pt works at [employer] at the [employer]. He does all ADL's from a seated position. He gets in/out of the tub for a bath Prior Functional Level (Other details) He reports the bathroom is small and hard to fit his wheelchair in it so he scoots on the floor and uses his arms to get up on the toilet and in/out of tub. He reports a hx of SNF rehab after surgeries or for IV antibiotics. Social History Household Members family Living Arrangements House Number of Floors (Floors) One Floor Number of Stairs To Enter/Railing? ramp which he reports as steep Home Environment Standard Height Toilet,Tub/ Shower,Ramp Home Equipment Manual Wheelchair,Power Wheelchair/Scooter Additional Social History Comment He takes paratransit in his manual wheelchair. He has an electric wheelchair but does not have a charging cable (lost in move) so can not use. He is right handed. M2 PT-IP Current Condition Start: 06/17/22 10:39 Freq: NEEDED Status: Active Protocol: Document 06/17/22 10:04 DLM (Rec: 06/17/22 11:22 DL [id number]) Physical Therapy Current Condition Current Condition Evaluation Date 06/17/22 Treatment Diagnosis right elbow septic arthritis, I&D, impaired mobility Onset Date 06/16/22 M3 PT-IP Subjective Start: 06/17/22 10:39 Freq: NEEDED Status: Active Protocol: Document 06/17/22 10:04 DLM (Rec: 06/17/22 11:22 [facility] [id number]) Subjective Physical Therapy Visit Type Type Initial Evaluation Visit Start Time 09:30 Visit Stop Time 10:04 Total Visit Minutes 34 Number of SOFTWARE VALIDATION TECHNICIAN Visits 0 Physical Therapy Visit Comments Patient Comments He recently moved from [place] and has not gotten signed up with [place] medicaid yet. He uses his UE's to push his wheelchair and for all mobility. He c/o 6 /10 right elbow pain today. He thinks it would be helpful to go to SNF rehab at discharge. Patient Goals He wants his elbow to get better and return to normal activities M4 PT-IP Mobility and Gait Start: 06/17/22 10:39 Freq: NEEDED Status: Active Protocol: Document 06/17/22 10:04 DLM (Rec: 06/17/22 11:22 DL [id number]) PT-Bed Mobility Assessment Rolling Level of Assist Independent Supine to Sit Supine to Sit Standby Assistance,Head of Bed Elevated,Bedrails Sit to Supine Sit to Supine Standby Assistance Scooting Scooting to Edge of Bed Independent PT-Transfer Assessment Sit to and From Stand Sit to and from Stand Contact Guard Assistance, Minimal Assistance,Use of Upper Extremities Equipment Transfer Assistive Device Gait Belt Transfers Transfer Destination Chair Transfer Technique Stand Pivot Transfer Ability Level of Assist Contact Guard Assistance, Minimal Assistance,Use of Upper Extremities Comments Mobility Comments Pain with use of right UE for transfers. He is wearing right foot AFO with shoe and left prosthesis for transfer today. He declined to stay up in the chair and returned to bed to rest and manage his pain. Gait Assessment Comments Gait Comments he does not ambulate at baseline, he declined to propel his manual wheelchair today due to right elbow pain. Stair Climbing Assessment Comments Stair Climbing Comments he pushes his manual wheelchair up a ramp at home PT-Balance Assessment Sitting Balance and Reactions Static Sitting Balance Ability Good Dynamic Sitting Balance Ability Good M5 PT-IP Objective Assessments Start: 06/17/22 10:39 Freq: NEEDED Status: Active Protocol: Document 06/17/22 10:04 DLM (Rec: 06/17/22 11:22 [facility] [id number]) Orientation Orientation/Cognition Level of Alertness Alert Orientation Name,Age,Birthday,Month,Date, Year,Day of Week,Place, Situation Language Function Ability No Deficits Noted Safety Awareness Understands Safety Issues Memory Description No Deficits Noted Gross Range of Motion Upper Extremity ROM Assessment Right Impaired Impairments pain in elbow post-op I&D, pt holding elbow in flexed position Lower Extremity ROM Assessment Right Impaired Impairments left BKA, right ankle fused per pt Strength Upper Extremity Strength Assessment Right Impaired Elbow pain and dressing limits use Lower Extremity Strength Assessment Bilaterally Impaired Hip flexion right 4/5, left 4-/5 Knee ext 4-/5 Ankle right ankle fused Comments Strength Comments hx spina bifida, right toes amputated Coordination Assessment Gross Coordination Gross Coordination WNL Sensation Assessment Sensation Gross Sensation Right LE Impaired,Left LE Impaired Sensation Description Numbness Comments Sensation Comments numbness in bilateral LE's Muscle Tone Muscle Tone WNL Yes M6 PT-IP Treatment Start: 06/17/22 10:39 Freq: NEEDED Status: Active Protocol: Document 06/17/22 10:04 [facility] (Rec: 06/17/22 11:22 [facility] [id number]) Physical Therapy Treatment Exercises Exercises Heel Slides Education Education Provided Safety Other Treatments Other Treatment Performed encouraged pt to do heel slides in bed M7 PT-IP Assessment and Plan Start: 06/17/22 10:39 Freq: NEEDED Status: Active Protocol: Document 06/17/22 10:04 [facility] (Rec: 06/17/22 11:22 [facility] [id number]) PT Summary Assessment and Plan Potential Rehabilitation Potential Good Status of Condition at Evaluation Evolving Summary Impairments Pain,ROM Assessment Summary Amaury is resting in bed and reports ongoing pain in right elbow. With assistance he was able to get on his AFO and prosthesis. He is very dependent on his UE's for transfers at baseline. His right elbow pain is limiting functional use right UE for transfers. He was able to get up to chair and transfer back to bed. He declined to propel his wheelchair due to his elbow pain. Mobility at home will be problematic since he is dependent on his UE's for all activities. His home is not fully wheelchair accessible and he is not able to scoot around at this time since he is dependent on his UE's to get up/down. Anticipate he will need SNF rehab at discharge. Goals Bed Mobility Goal Independent Transfer Goal Standby Assistance Other Goals Propel wheelchair with UE's and right LE x 30 feet if safe for his wounds (level surface ) Days to Meet Goals 5 Frequency of Treatment Frequency Of Treatment Once a Day Treatment Plan Physical Therapy Treatment Plan Transfer Training,Therapeutic Exercise,Discharge Planning Precautions Other Precautions right elbow I&D 06/16/22, has hemovac at this time Hx left Below knee amputation, wound right foot Weight Bearing Status Weight Bearing Status Weight Bear as Tolerated Recommendations To Nursing Amount of Assist Needed 1 Person Assist Discharge Recommendations PT Discharge Recommendations Home vs SNF Other Discharge Recommendations IV antibiotics for 6 weeks also per MD notes Equipment Needed for Home Before he needs charging cable for Discharge his power wheelchair Transportation Needs at Discharge Wheelchair/Cabulance
--- NOTE | 2022-06-17 10:29 | PM.PNPO.1 ---
Subjective Subjective Date Patient Seen: 06/17/22 Time Patient Seen: 10:31 Interval history: H/o spina bifida, L BKA, uses LLE prosthesis and RLE for transfers and wheelchair for mobility. On visit this morning, he is resting comfortably in bed, c/o continued R elbow pain but it is better than prior to surgery. Exam Vital Signs (past 8 hours): - 06/17/22 05:06 06/17/22 08:00 Temperature 97.3 F L 97.5 F L Pulse Rate 80 78 Respiratory Rate 18 18 Blood Pressure 154/98 H 153/91 H Pulse Oximetry 96 95 Oxygen Flow Rate 0 Oxygen Delivery Method Room Air Oxygen Flow Rate 0 Narrative Exam Narrative: 5/5 welfare interviewer strength, full ROM in fingers and wrist, brisk capillary refill. Scant bloody drainage in hemovac. Gauze dressing CDI. Cultures pending. Objective Labs Result Diagrams: 06/17/22 05:26 06/17/22 05:26 Labs: Laboratory Results - last 24 hr 06/17/22 06/17/22 05:26 05:26 WBC 6.2 RBC 4.36 L Hgb 13.6 Hct 39.6 L MCV 90.8 MCH 31.0 MCHC 34.2 RDW 12.6 Plt Count 240 Sodium 136 L Potassium 4.0 Chloride 104 Carbon Dioxide 24 BUN 8 L Creatinine 0.66 Estimated GFR > 60 BUN/Creatinine Ratio 12.1 Glucose 105 H Calcium 8.4 PFSH Medical History History of left below knee amputation Sacral decubitus ulcer Spina bifida Social History household members: family Smoking Status: Never smoker alcohol intake: current Assessment & Plan Post-op Assessment and plan (1) Septic arthritis of elbow, right: Assessment and Plan narrative: Continue IV vancomycin until cultures and sensitivities returned. Will be in the hospital until cultures finalized and will be scheduled for for IV and antibiotics at home; PICC line ordered.? Estimate 6 weeks of IV antibiotics for septic arthritis.? On discharge home with IV antibiotics he will need weekly labs with CMP, CBC with differential ESR and CRP for monitoring.? Patient will follow up in Orthopedic Clinic in 2 weeks for suture removal.? Will plan to keep him off work at [employer] for 2 weeks to allow for incision healing.? Then may return if antibiotic dosing schedule allows.? Drain will be removed tomorrow. Postoperative Procedures: Procedures Operation Date: 06/16/22 13:15 Actual Procedure Side Surgeon p I&D elbow infection Right Claudine Combs MD Postoperative day: 1 Quality VTE Deep Vein Thrombosis/Pulmonary Embolism Present on Admission: No
--- NOTE | 2022-06-17 11:55 | CM.DPNOTE ---
Discharge Planning Note: Met with patient, introduced self and role. Payer: Medicare and self pay, received Medical in [place] and now working with [facility] to obtain Medicaid here. PCP: Yair Garcia 41 year old single male with hx of spina bifida, is w/c bound, uses R AFO and has BKA with prosthesis. Admitted with septic arthritis to right elbow and underwent I&D yesterday which is bandaged with a drain. He is unable to ambulate and able to self transfer and is independent in ADLs and uses para transport services for appointments. He recently moved from [place] to [place] to live with his mother. PT Eval done. Patient will have difficulty self transferring due to location of infection to right elbow and will most likely need SNF Rehab. As well patient will be on extended IV antibiotics. Patient has been in SNF Rehabs in past and is comfortable with going to SNF, provided list. Plan: Send SNF referrals and follow for needs. Loren Frederick RN/DCP
[2022-06-17] MEDS: polyethylene glycoL 3350 17 GM POWD.PACK PO (12:26)
--- NOTE | 2022-06-17 16:34 | DI.RAD.S_ITS ---
PROCEDURE: XR CHEST FOR PICC 1V INDICATIONS: PICC placement COMPARISON: None. FINDINGS: PICC was placed from the left side. Radiographic spot film demonstrates the tip of PICC projecting to the area of superior vena cava. Right catheter overlies the neck extending to the abdomen, fever CLIENT EXPERIENCE MANAGER shunt. Lungs are clear. No focal consolidation, pleural effusion, or pneumothorax. Heart is normal sized. Osseous structures are unremarkable. IMPRESSION: Tip of PICC projects to the area of superior vena cava. Dictated by: Dave Mason M.D. on 06/17/2022 at 16:06 Approved by: Dave Mason M.D. on 06/17/2022 at 16:10
[2022-06-17] MEDS: VANCOMYCIN TROUGH 1 REQUEST MISC (17:47)
--- NOTE | 2022-06-17 18:47 | P.CONS_ITS ---
History of Present Illness Consult details Date Patient Seen: 06/17/22 Time Patient Seen: 18:48 Chief complaint: Right elbow pain, Warm, Swollen Narrative: This is a 41-year-old male with a past medical history of spina bifida, wheelchair-bound at baseline, and prior episodes of septic arthritis who was admitted 2 days ago with presumed septic arthritis of his right elbow. He has had continued pain in his R elbow, consistently above 5/10 and this continues today. Medicine was consulted for elevated blood pressures. He has been consistently in the 160s systolic, and more recently >180. He denies any chest pain, shortness of breath, palpitations, visual changes, nausea, vomiting. He has not had a bowel movement since admission. He denies fever or chills. He states his BP is normally around 140 at home. He does not yet have a PCP in the area as he has moved recently from [place]. He is on vancomycin for septic arthritis. oxycodone for pain control 5-10 mg q3h, 0.5 mg IV dilaudid for breakthrough. Miralax daily for constipation. No prior EKGs. Meds Home Medications and Allergies Home Medications Medication Instructions Recorded Confirmed Type mupirocin 2 % topical ointment 1 ea topical BID 06/16/22 06/16/22 History Allergies Allergy/AdvReac Type Severity Reaction Status Date / Time hydrocodone [From Vicodin] AdvReac Mild Nausea Verified 06/16/22 15:58 Review of Systems Review of Systems Narrative: All other systems reviewed with the patient and are negative unless otherwise stated. Exam Vital Signs (past 8 hours): - 06/17/22 12:00 06/17/22 16:45 06/17/22 17:25 Temperature 97.9 F 98.2 F Pulse Rate 94 H 80 Respiratory Rate 18 18 Blood Pressure 145/94 H Pulse Oximetry 96 96 Oxygen Flow Rate 0 0 06/17/22 18:20 Temperature Pulse Rate Respiratory Rate Blood Pressure 184/127 H Pulse Oximetry Oxygen Flow Rate Oxygen Delivery Method Room Air Oxygen Flow Rate 0 Narrative Exam Narrative: General:? Patient is well developed and well nourished, in no distress at this time. HEENT:? Normocephalic, atraumatic, extraocular muscles intact, oral pharynx is clear and mucous membranes are moist. Neck: supple and symmetric, trachea is midline, no cervical adenopathy. Negative for JVD Chest:? Normal AP diameter and contour without kyphoscoliosis, no tachypnea, equal chest rise bilaterally. Lungs:? CTA b/l no wheezing rhonchi or rales. Cardio:?RRR no m/r/g. Abdomen: S NT ND. Musculoskeletal:? L BKA, R elbow bandaged with with sanguinous drainage from drain. Extremities: No edema or joint effusions visible, though has R elbow bandaged and L BKA as noted above. No cyanosis or clubbing. Skin:? Pale,? Warm to touch,dry and intact without rashes, ulcerations or petechiae.? Neuro:? Alert and orientated x3,? sensation to touch intact in all remaining extremities, no gross deficits noted of cranial nerves. Psych:? Patient has a well-kept appearance, appropriate affect, mental status attitude thought context and judgment are appropriate for age. Objective Labs Result Diagrams: 06/17/22 05:26 06/17/22 05:26 Labs: Laboratory Results - last 24 hr 06/17/22 06/17/22 06/17/22 05:26 05:26 17:30 WBC 6.2 RBC 4.36 L Hgb 13.6 Hct 39.6 L MCV 90.8 MCH 31.0 MCHC 34.2 RDW 12.6 Plt Count 240 Sodium 136 L Potassium 4.0 Chloride 104 Carbon Dioxide 24 BUN 8 L Creatinine 0.66 Estimated GFR > 60 BUN/Creatinine Ratio 12.1 Glucose 105 H Calcium 8.4 Vancomycin Trough 11.0 PFSH Medical History (Updated 06/16/22 @ 13:58 by Avelino Verma DO) History of left below knee amputation Sacral decubitus ulcer Spina bifida Surgical History (Updated 06/17/22 @ 19:09 by Mau Maria DO) S/P REGULATORY 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 Social History household members: family Tobacco & Substance Use Smoking Status: Never smoker alcohol intake: current substance use type: marijuana Assessment & Plan Assessment & Plan narrative: 41 M admitted with septic arthritis, medicine consulted for HTN. 1. Septic arthritis of the R elbow. - remains on vancomycin, no organisms isolated from cultures thus far. - recommend improved pain control - management per orthopedics 2. HTN - will start low dose antihypertensive with amlodipine 5 mg daily for now given at home he reports elevated BP (140s systolic) - suspect currently his BP are elevated in setting of pain as well - Will check EKG, no prior studies for review. - he is currently asymptomatic so no need for aggressive BP management at this time. - no significant electrolyte abnormalities. 3. history of spina bifida Code: Full, surrogate is his mother. DVT: on Heparin I have utilized all available immediate resources to obtain, update, or review the patient's current medications. Time Spent With Patient Critical Care time: I spent a total of [] minutes of critical care time on this patient's care today; this time is exclusive of procedural time.
[2022-06-17] MEDS: SENNOSIDES 8.6 MG TABLET 17.2 MG PO (20:09)
[2022-06-17] MEDS: AMLODIPINE 5 MG TABLET PO (20:09)
[2022-06-17] MEDS: VANCOMYCIN PEAK 1 REQUEST MISC (20:09)
[2022-06-17 21:10] LABS: Vancomycin Peak 24.6 ug/mL (20-40)
[2022-06-17] MEDS: LACTATED RINGERS 1,000 ML 100 ML IV (21:28)
[2022-06-18 00:45] VITALS: BP 177/105; PULSE 95; RESP 18; TEMP 36.9; O2SAT 94
[2022-06-18] MEDS: diphenhydrAMINE 25 MG TABLET 50 MG PO ×2 (00:56→18:18)
[2022-06-18] MEDS: OXYCODONE IR 10 MG TABLET PO ×4 (00:56→21:43)
[2022-06-18] MEDS: VANCOMYCIN 1,250 MG/250 ML PIGGYBACK 250 MG IV (01:58)
[2022-06-18 05:23] VITALS: BP 155/102; PULSE 76; RESP 14; TEMP 36.6; O2SAT 94
[2022-06-18] MEDS: HYDROMORPHONE 0.5 MG INJ IV ×5 (06:53→22:20)
[2022-06-18 07:45] VITALS: BP 165/104; PULSE 85; RESP 18; TEMP 36.1; O2SAT 95
[2022-06-18] MEDS: DOCUSATE 100 MG CAPSULE PO ×2 (08:42→20:32)
[2022-06-18] MEDS: AMLODIPINE 5 MG TABLET PO (08:42)
[2022-06-18] MEDS: polyethylene glycoL 3350 17 GM POWD.PACK PO (08:43)
[2022-06-18] MEDS: HEPARIN 5,000 UNIT/ML VIAL 5000 UNIT SUBCUT ×2 (08:43→20:31)
[2022-06-18] MEDS: cefTRIAXone 2,000 MG in SODIUM CHLORIDE 0.9% 100 ML 200 MG IV (09:40)
--- NOTE | 2022-06-18 09:52 | P.PN_ITS ---
Subjective Subjective Date Patient Seen: 06/18/22 Time Patient Seen: 09:53 Interval history: Pt sitting up in bed comfortably. Feels he can safely discharge home once cultures are finalized. Pain in elbow better today. Dr Maria consulted d/t HTN, started amlodipine. Exam Vital Signs (past 8 hours): - 06/18/22 05:23 06/18/22 07:45 Temperature 97.8 F 97 F L Pulse Rate 76 85 Respiratory Rate 14 18 Blood Pressure 155/102 H 165/104 H Pulse Oximetry 94 95 Oxygen Flow Rate 0 0 Oxygen Delivery Method Room Air Oxygen Flow Rate 0 Narrative Exam Narrative: Hemovac removed. PICC inserted yesterday. Aerobic cultures preliminarily negative. Moving fingers and wrist without difficulty, 5/5 bench worker helper strength, brisk capillary refill. Objective Labs Result Diagrams: 06/17/22 05:26 06/17/22 05:26 Labs: Laboratory Results - last 24 hr 06/17/22 06/17/22 17:30 20:15 Vancomycin Peak 24.6 Vancomycin Trough 11.0 PFSH Medical History (Updated 06/18/22 @ 09:57 by Maira Peoples PA-C) History of left below knee amputation Sacral decubitus ulcer Spina bifida Surgical History (Updated 06/17/22 @ 19:09 by Mau Maria DO) S/P TESTER ARMATURE OR FIELDS shunt Family History (Updated 06/17/22 @ 18:54 by Mau Maria DO) Mother Hypertension Father No pertinent past medical history Social History household members: family Smoking Status: Never smoker alcohol intake: current substance use type: marijuana Assessment & Plan Post-op Assessment and plan (1) Septic arthritis of elbow, right: Assessment and Plan narrative: Wait for final cultures; high suspicion septic arthritis based on cell count and 99% PMNs. If no growth on final cx will treat empiric with 2g ceftriaxone IV q24 x 6 weeks -- if other then abx per organism. On discharge home with IV antibiotics he will need weekly labs with CMP, CBC with differential ESR and CRP for monitoring.? Patient will follow up in Orthopedic Clinic in 2 weeks for suture removal.? 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 (2) Hypertension: Assessment and Plan narrative: Appreciate Dr Maria's help with management. Postoperative Procedures: Procedures Operation Date: 06/16/22 13:15 Actual Procedure Side Surgeon p I&D elbow infection Right Claudine Combs MD Postoperative day: 2 Quality VTE Deep Vein Thrombosis/Pulmonary Embolism Present on Admission: No
--- NOTE | 2022-06-18 10:54 | PT.IPTN ---
Current Diagnoses Essential (primary) hypertension (06/16/22) Pyogenic arthritis, unspecified (06/16/22) Surgery Performed Operation Date: 06/16/22 13:15 Actual Procedures p I&D elbow infection(Right) - Claudine Combs MD Physical Therapy Treatment Note M2 PT-IP Current Condition Start: 06/17/22 10:39 Freq: NEEDED Status: Active Protocol: Document 06/17/22 10:04 DLM (Rec: 06/17/22 11:22 DLM [id number]) Physical Therapy Current Condition Current Condition Evaluation Date 06/17/22 Treatment Diagnosis right elbow septic arthritis, I&D, impaired mobility Onset Date 06/16/22 M3 PT-IP Subjective Start: 06/17/22 10:39 Freq: NEEDED Status: Active Protocol: Document 06/18/22 10:54 AW (Rec: 06/18/22 11:40 AW [id number]) Subjective Physical Therapy Visit Type Type Treatment Note Visit Start Time 10:43 Visit Stop Time 10:54 Total Visit Minutes 11 Number of POCKET SETTER Visits 0 Physical Therapy Visit Comments Patient Comments Pt reporting 5/10 pain at rest and would like to try propelling his w/c today Patient Goals He wants his elbow to get better and return to normal activities Therapy Pain Assessment Pain When Pain Assessed During Mobility Pain Present Pain Present Pain Reported Location right elbow Intensity 5 Scale Used 5/10 at rest; unchanged with mobility M4 PT-IP Mobility and Gait Start: 06/17/22 10:39 Freq: NEEDED Status: Active Protocol: Document 06/18/22 10:54 AW (Rec: 06/18/22 11:40 AW [id number]) PT-Bed Mobility Assessment Supine to Sit Supine to Sit Standby Assistance,Head of Bed Elevated,Bedrails Sit to Supine Sit to Supine Standby Assistance PT-Transfer Assessment Transfers Transfer Destination Wheelchair Transfer Technique Squat Pivot Transfer Ability Level of Assist Contact Guard Assistance, Minimal Assistance,Use of Upper Extremities Comments Mobility Comments Pt was lying in bed as PT arrived. He was able to transfer bed>w/c CGA using his UEs. He propelled his w/c around the nurses station twice before returning to the room and transferring back to bed min A due to going uphill. Stair Climbing Assessment Comments Stair Climbing Comments He pushes his manual wheelchair up a ramp at home. He states the ramp is not ADA compliant but he and his friend are working on lengthening the ramp. PT-Balance Assessment Sitting Balance and Reactions Static Sitting Balance Ability Good Dynamic Sitting Balance Ability Good M5 PT-IP Objective Assessments Start: 06/17/22 10:39 Freq: NEEDED Status: Active Protocol: Document 06/17/22 10:04 DLM (Rec: 06/17/22 11:22 DL [id number]) Orientation Orientation/Cognition Level of Alertness Alert Orientation Name,Age,Birthday,Month,Date, Year,Day of Week,Place, Situation Language Function Ability No Deficits Noted Safety Awareness Understands Safety Issues Memory Description No Deficits Noted Gross Range of Motion Upper Extremity ROM Assessment Right Impaired Impairments pain in elbow post-op I&D, pt holding elbow in flexed position Lower Extremity ROM Assessment Right Impaired Impairments left BKA, right ankle fused per pt Strength Upper Extremity Strength Assessment Right Impaired Elbow pain and dressing limits use Lower Extremity Strength Assessment Bilaterally Impaired Hip flexion right 4/5, left 4-/5 Knee ext 4-/5 Ankle right ankle fused Comments Strength Comments hx spina bifida, right toes amputated Coordination Assessment Gross Coordination Gross Coordination WNL Sensation Assessment Sensation Gross Sensation Right LE Impaired,Left LE Impaired Sensation Description Numbness Comments Sensation Comments numbness in bilateral LE's Muscle Tone Muscle Tone WNL Yes M6 PT-IP Treatment Start: 06/17/22 10:39 Freq: NEEDED Status: Active Protocol: Document 06/18/22 10:54 AW (Rec: 06/18/22 11:40 AW [id number]) Physical Therapy Treatment Education Education Provided Safety M7 PT-IP Assessment and Plan Start: 06/17/22 10:39 Freq: NEEDED Status: Active Protocol: Document 06/18/22 10:54 AW (Rec: 06/18/22 11:40 AW [id number]) PT Summary Assessment and Plan Summary Assessment Summary Amaury reports continued pain right elbow but improved since drain was removed earlier. He was able to transfer CGA/min A today to and from his wheelchair. He was able to propel his wheelchair x 400 feet with UE's with no increase in baseline pain. His home is not fully wheelchair accessible and he is not able to scoot around at this time since he is dependent on his UE's to get up/down. Anticipate he will need SNF rehab at discharge. Goals Bed Mobility Goal Independent Transfer Goal Standby Assistance Other Goals Propel wheelchair with UE's and right LE x 30 feet if safe for his wounds (level surface ) Days to Meet Goals 5 Frequency of Treatment Frequency Of Treatment Once a Day Treatment Plan Physical Therapy Treatment Plan Transfer Training,Therapeutic Exercise,Discharge Planning Precautions Other Precautions -right elbow I&D 06/16/22 -Hx left Below knee amputation , wound right foot Weight Bearing Status Weight Bearing Status Weight Bear as Tolerated Recommendations To Nursing Amount of Assist Needed 1 Person Assist Discharge Recommendations PT Discharge Recommendations Home vs SNF Other Discharge Recommendations IV antibiotics for 6 weeks also per MD notes Equipment Needed for Home Before he needs charging cable for Discharge his power wheelchair Transportation Needs at Discharge Wheelchair/Cabulance
--- NOTE | 2022-06-18 11:04 | CM.DPNOTE ---
Faxed clinicals to [facility]. María will follow up with DC media planner / buyer on Sunday, 06/20. Uzma Dawson CM Assist.
[2022-06-18 11:21] VITALS: BP 166/103; PULSE 98; RESP 18; TEMP 36.7; O2SAT 94
[2022-06-18] MEDS: FLEETS ENEMA 1 EACH PR (11:35)
[2022-06-18] MEDS: VANCOMYCIN 1,500 MG/300 ML PIGGYBACK 200 MG IV ×2 (11:35→17:21)
--- NOTE | 2022-06-18 12:22 | CM.DPNOTE ---
DCP Note: Patient states his right elbow is feeling better today and worked with PT yesterday and upcoming today. Spoke with Maira CHAIREZ discussed home infusion option, which this DCP initiated, initial referral sent to [facility]. Patient is comfortable with home infusion as he has had in past and lives with his mother who could possibly assist as well. After holiday weekend, home infusion will assess when can start. Plan: Follow up with [facility] and dc home with this in place when medically cleared. Loren Frederick RN/DCP
[2022-06-18 14:34] LABS: C-Reactive Protein Quant 4.6 mg/dL (<1.0)
--- NOTE | 2022-06-18 15:57 | PC.NURSE ---
Addendum entered by Nara Bauman R.N. 06/18/22 16:16: BP elevated today, higher this afternoon, pt still asymptomatic and pain is at a tolerable level. Amlodipine administered this am as ordered. Dr. Maria aware but not concerned at this time. Original Note: Pt c/o constipation this am, no BM in several days despite regular administration of colace, miralax, senna. Enema ordered and given this am, prune juice offered as well. 1 small BM this afternoon, loose and yellow. Pt states that his abdomen feels less distended but that he still feels constipated.
[2022-06-18 16:00] VITALS: BP 168/109; PULSE 88; RESP 18; TEMP 36.6; O2SAT 96
[2022-06-18 20:29] VITALS: BP 162/84; PULSE 103; RESP 18; TEMP 36.8; O2SAT 95
[2022-06-18] MEDS: SENNOSIDES 8.6 MG TABLET 17.2 MG PO (20:32)
[2022-06-19] VITALS (7 sets, daily range): BP systolic 147–177; BP diastolic 90–107; PULSE 76–99; RESP 16–18; TEMP 36–36.9; O2SAT 92–97
[2022-06-19] MEDS: HYDROMORPHONE 0.5 MG INJ IV ×5 (00:19→20:54)
[2022-06-19] MEDS: VANCOMYCIN 1,500 MG/300 ML PIGGYBACK 200 MG IV ×3 (01:53→17:26)
[2022-06-19] MEDS: OXYCODONE IR 10 MG TABLET PO ×5 (02:18→20:20)
[2022-06-19] MEDS: diphenhydrAMINE 25 MG TABLET 50 MG PO ×2 (02:18→21:44)
[2022-06-19 06:47] LABS: Add Manual Diff / Slide Review NO; Basophils Absolute Auto 0 /uL (0-100); Basophils Percent Auto 0.5 % (0-2); Eosinophils Absolute Auto 400 /uL (0-450); Eosinophils Percent Auto 6.7 % (2-4); Hematocrit 38.2 % (41-53); Hemoglobin 13.1 g/dL (13.5-17.5); Lymphocytes Absolute Auto 1000 /uL (1100-4500); Lymphocytes Percent Auto 18.9 % (25-40); Mean Corpuscular HGB Conc 34.2 % (30-36); Mean Corpuscular Volume 90.6 fL (80-100); Monocytes Absolute Auto 600 /uL (0-900); Monocytes Percent Auto 11.6 % (3-14); Neutrophils Absolute Auto 3400 /uL (1500-7000); Neutrophils Percent Auto 62.3 % (50-75); Platelet Count 247 X10^3/uL (150-400); Red Blood Cell Count 4.21 X10^6/uL (4.5-5.9); Red Cell Distribution Width 12.6 % (11.6-14.8); White Blood Cell Count 5.5 X10^3/uL (4.5-11.0)
[2022-06-19 06:58] LABS: Alanine Aminotransferase 68 IU/L (<50); Albumin Globulin Ratio 1.2 (1.0-2.8); Alkaline Phosphatase 58 U/L (38-126); Aspartate Aminotransferase 36 IU/L (17-59); BUN Creatinine Ratio 16.9 (6-22); Bilirubin Total 0.6 mg/dL (0.2-1.3); Blood Urea Nitrogen 12 mg/dL (9-20); Calcium 8.9 mg/dL (8.4-10.2); Carbon Dioxide 25 mmol/L (22-32); Chloride 105 mmol/L (98-107); Estimated Glomerular Filt Rate > 60 mL/min (>60); Globulin 3.4 g/dL (1.7-4.1); Glucose 107 mg/dL (70-100); HEMOLYSIS 26 (0-50); Potassium 4.2 mmol/L (3.4-5.1); Sodium 136 mmol/L (137-145); Total Protein 7.4 g/dL (6.3-8.2)
--- NOTE | 2022-06-19 08:42 | CM.DPC ---
DCP Cont: Left Lakesha from [facility] a message to see if she had received referral, and if she would accept. According to DCP notes, this was patient's first choice of facilities. P: DCP to continue to follow, as is noted that patient will be needing 6 weeks of IV antibiotics, and due to mobility, will need [facility]p. Will need to ensure that [facility] can accept, or move on to other faciities. Emeli Eng RN/Hostess
[2022-06-19] MEDS: DOCUSATE 100 MG CAPSULE PO ×2 (09:08→21:44)
[2022-06-19] MEDS: AMLODIPINE 5 MG TABLET 10 MG PO (09:08)
[2022-06-19] MEDS: polyethylene glycoL 3350 17 GM POWD.PACK PO (09:09)
[2022-06-19] MEDS: cefTRIAXone 2,000 MG in SODIUM CHLORIDE 0.9% 100 ML 200 MG IV (09:09)
[2022-06-19] MEDS: HEPARIN 5,000 UNIT/ML VIAL 5000 UNIT SUBCUT ×2 (09:09→21:45)
[2022-06-19 10:34] LABS: Vancomycin Trough 15.4 ug/mL (10-20)
--- NOTE | 2022-06-19 11:00 | P.PN_ITS ---
Subjective Subjective Date Patient Seen: 06/19/22 Time Patient Seen: 11:00 Interval history: Status post right elbow irrigation debridement for septic arthritis. Cultures still not finalized no growth yet. Continue empiric antibiotics. White cell count has improved. Pain is better today. Once cultures finalize will plan for discharge IV antibiotics if no gross then plan for ceftriaxone 2 g daily x6 weeks. Exam Vital Signs (past 8 hours): - 06/19/22 04:45 06/19/22 08:00 Temperature 96.8 F L 97.4 F L Pulse Rate 85 83 Respiratory Rate 18 17 Blood Pressure 158/90 H 147/91 H Pulse Oximetry 92 95 Oxygen Flow Rate 0 0 Oxygen Delivery Method Room Air Oxygen Flow Rate 0 Narrative Exam Narrative: Dressing clean dry and intact. Demonstrates improved elbow flexion extension. Full wrist flexion extension. Objective Labs Result Diagrams: 06/19/22 06:38 06/19/22 06:38 Labs: Laboratory Results - last 24 hr 06/18/22 06/19/22 06/19/22 14:05 06:38 06:38 WBC 5.5 RBC 4.21 L Hgb 13.1 L Hct 38.2 L MCV 90.6 MCH 31.0 MCHC 34.2 RDW 12.6 Plt Count 247 Neut % (Auto) 62.3 Lymph % (Auto) 18.9 L [place] % (Auto) 11.6 Eos % (Auto) 6.7 H Baso % (Auto) 0.5 Neut # (Auto) 3400 Lymph # (Auto) 1000 L [place] # (Auto) 600 Eos # (Auto) 400 Baso # (Auto) 0 Sodium 136 L Potassium 4.2 Chloride 105 Carbon Dioxide 25 BUN 12 Creatinine 0.71 Estimated GFR > 60 BUN/Creatinine Ratio 16.9 Glucose 107 H Calcium 8.9 Total Bilirubin 0.6 AST 36 ALT 68 H Alkaline Phosphatase 58 C-Reactive Protein 4.6 H Total Protein 7.4 Albumin 4.0 Globulin 3.4 Albumin/Globulin Ratio 1.2 Vancomycin Trough 06/19/22 09:26 WBC RBC Hgb Hct MCV MCH MCHC RDW Plt Count Neut % (Auto) Lymph % (Auto) [place] % (Auto) Eos % (Auto) Baso % (Auto) Neut # (Auto) Lymph # (Auto) [place] # (Auto) Eos # (Auto) Baso # (Auto) Sodium Potassium Chloride Carbon Dioxide BUN Creatinine Estimated GFR BUN/Creatinine Ratio Glucose Calcium Total Bilirubin AST ALT Alkaline Phosphatase C-Reactive Protein Total Protein Albumin Globulin Albumin/Globulin Ratio Vancomycin Trough 15.4 PFSH Medical History (Updated 06/18/22 @ 09:57 by Maira Peoples PA-C) History of left below knee amputation Sacral decubitus ulcer Spina bifida Surgical History (Updated 06/17/22 @ 19:09 by Mau Maria DO) S/P PATIENT CARE MANAGER shunt Family History (Updated 06/17/22 @ 18:54 by Mau Maria DO) Mother Hypertension Father No pertinent past medical history Social History household members: family Smoking Status: Never smoker alcohol intake: current substance use type: marijuana Assessment & Plan Post-op Postoperative Procedures: Procedures Operation Date: 06/16/22 13:15 Actual Procedure Side Surgeon p I&D elbow infection Right Claudine Combs MD Postoperative plan narrative: Improving white count and pain. On vancomycin and ceftriaxone. Still awaiting final cultures. Will require approximately 6 weeks of IV antibiotics for septic arthritis. If no growth then will be ceftriaxone 2 g daily at discharge. Time Spent With Patient Time with patient: less than 15 minutes Quality VTE Deep Vein Thrombosis/Pulmonary Embolism Present on Admission: No
--- NOTE | 2022-06-19 13:26 | CM.DPC ---
Addendum entered by Emeli Eng R.N. 06/19/22 15:01: Dr. Combs called and stated that patient will discharge on Ceftriaxone, 2 grams q 24 hours, end date approximately . Let her know that this DC data processing systems project planner is working on getting patient set up at outpatient infusion next door, since he is Medicare. Asked if she can write a hard copy prescription tomorrow. Left infusion clinic a message about patient, and went ahead and faxed over to infusion room, and oncology clinic, the face sheet, med sheet, today's progress note, and H&P. Will follow up with them tomorrow. Original Note: DCP Cont: Met with patient, introduced self and role. Patient indicated, he wants to go home with his mother and do his antibiotics at home. Let him know that his Medicare does not cover home infusions, but there is a possibility of him going next door for outpatient infusions, which he is ok with. Mentioned this to the hospitalist, stated, he is currently on Vanco twice a day, but can review his antibiotics to see if there is something he can take once a day. Will need to follow up, and contact the infusion clinic next door as well. P: DCP to continue to follow closely. At this time, patient wants to go home with the option of outpatient treatment. Emeli Eng RN/Operations Business Partner
--- NOTE | 2022-06-19 13:37 | PT.IPTN ---
Current Diagnoses Essential (primary) hypertension (06/16/22) Pyogenic arthritis, unspecified (06/16/22) Surgery Performed Operation Date: 06/16/22 13:15 Actual Procedures p I&D elbow infection(Right) - Claudine Combs MD Physical Therapy Treatment Note M2 PT-IP Current Condition Start: 06/17/22 10:39 Freq: NEEDED Status: Active Protocol: Document 06/17/22 10:04 DLM (Rec: 06/17/22 11:22 DLM [id number]) Physical Therapy Current Condition Current Condition Evaluation Date 06/17/22 Treatment Diagnosis right elbow septic arthritis, I&D, impaired mobility Onset Date 06/16/22 M3 PT-IP Subjective Start: 06/17/22 10:39 Freq: NEEDED Status: Active Protocol: Document 06/19/22 13:13 KS (Rec: 06/19/22 14:06 KS [id number]) Subjective Physical Therapy Visit Type Type Treatment Note Visit Start Time 13:13 Visit Stop Time 13:37 Total Visit Minutes 24 Number of ENDOSCOPY REGISTERED NURSE Visits 1 Physical Therapy Visit Comments Patient Comments Pt agreeable to practice transfers and w/c mobility. Patient Goals He wants his elbow to get better and return to normal activities M4 PT-IP Mobility and Gait Start: 06/17/22 10:39 Freq: NEEDED Status: Active Protocol: Document 06/19/22 13:13 KS (Rec: 06/19/22 14:06 KS [id number]) PT-Bed Mobility Assessment Supine to Sit Supine to Sit Standby Assistance,Head of Bed Elevated Sit to Supine Sit to Supine Standby Assistance Scooting Scooting to Edge of Bed Standby Assistance Scooting Up and Down in Bed Standby Assistance PT-Transfer Assessment Sit to and From Stand Sit to and from Stand Contact Guard Assistance,1 Person Assistance,Use of Upper Extremities Equipment Transfer Assistive Device Gait Belt Transfers Transfer Destination Wheelchair Transfer Technique Squat Pivot Transfer Ability Level of Assist Contact Guard Assistance,1 Person Assistance,Use of Upper Extremities Comments Mobility Comments Pt in bed upon arrival and agreeable to practice transfers and w/c mobility. SBA for bed mobility, CGA for squat pivot transfer from bed to w/c. Pt then propelled w/c ~[address] SBA and returned to room. Pt reported fatigue and increased pain in R elbow. Pt transferred back to bed using squat pivot again w/ CGA and was able to reposition himself in bed following. Pt states he does feel weaker than normal and w/ lower tolerance for activity but feels he is improving. Gait Assessment Comments Gait Comments Does not ambulate - self propelled w/c 250 ft. Stair Climbing Assessment Comments Stair Climbing Comments He pushes his manual wheelchair up a ramp at home. He states the ramp is not ADA compliant but he and his friend are working on lengthening the ramp. PT-Balance Assessment Sitting Balance and Reactions Static Sitting Balance Ability Good Dynamic Sitting Balance Ability Good M5 PT-IP Objective Assessments Start: 06/17/22 10:39 Freq: NEEDED Status: Active Protocol: Document 06/17/22 10:04 DLM (Rec: 06/17/22 11:22 DL [id number]) Orientation Orientation/Cognition Level of Alertness Alert Orientation Name,Age,Birthday,Month,Date, Year,Day of Week,Place, Situation Language Function Ability No Deficits Noted Safety Awareness Understands Safety Issues Memory Description No Deficits Noted Gross Range of Motion Upper Extremity ROM Assessment Right Impaired Impairments pain in elbow post-op I&D, pt holding elbow in flexed position Lower Extremity ROM Assessment Right Impaired Impairments left BKA, right ankle fused per pt Strength Upper Extremity Strength Assessment Right Impaired Elbow pain and dressing limits use Lower Extremity Strength Assessment Bilaterally Impaired Hip flexion right 4/5, left 4-/5 Knee ext 4-/5 Ankle right ankle fused Comments Strength Comments hx spina bifida, right toes amputated Coordination Assessment Gross Coordination Gross Coordination WNL Sensation Assessment Sensation Gross Sensation Right LE Impaired,Left LE Impaired Sensation Description Numbness Comments Sensation Comments numbness in bilateral LE's Muscle Tone Muscle Tone WNL Yes M6 PT-IP Treatment Start: 06/17/22 10:39 Freq: NEEDED Status: Active Protocol: Document 06/19/22 13:13 KS (Rec: 06/19/22 14:06 DC [id number]) Physical Therapy Treatment Education Education Provided Safety M7 PT-IP Assessment and Plan Start: 06/17/22 10:39 Freq: NEEDED Status: Active Protocol: Document 06/19/22 13:13 KS (Rec: 06/19/22 14:06 KS [id number]) PT Summary Assessment and Plan Potential Rehabilitation Potential Good Summary Impairments Pain,ROM Progress Towards Goals Progressing Toward Goals,Slow Progress due to Pain,Slow Progress due to Activity Tolerance Assessment Summary Pt requires SBA for bed mobility and CGA for squat pivot transfers to and from w/ c and bed today. Good safety awareness and able to self propel 250 [address] in hallway, but did report higher level of fatigue and increased weakness than his baseline. Will continue to assess progress, but at this time pt wanting to return home w/ mother. Goals Bed Mobility Goal Independent Transfer Goal Standby Assistance Other Goals Propel wheelchair with UE's and right LE x 30 feet if safe for his wounds (level surface ) Days to Meet Goals 5 Frequency of Treatment Frequency Of Treatment Once a Day Treatment Plan Physical Therapy Treatment Plan Transfer Training,Therapeutic Exercise,Discharge Planning Precautions Other Precautions -right elbow I&D 06/16/22 -Hx left Below knee amputation , wound right foot Weight Bearing Status Weight Bearing Status Weight Bear as Tolerated Recommendations To Nursing Amount of Assist Needed 1 Person Assist Discharge Recommendations PT Discharge Recommendations Home vs SNF Other Discharge Recommendations IV antibiotics for 6 weeks also per MD notes Equipment Needed for Home Before he needs charging cable for Discharge his power wheelchair Transportation Needs at Discharge Private Vehicle,Wheelchair/ Cabulance
--- NOTE | 2022-06-19 14:53 | P.PN_ITS ---
Subjective Subjective Date Patient Seen: 06/19/22 Interval history: remains hypertensive, though denies chest pain shortness of breath nausea, vomiting, or abdominal pain. He continues to have joint pains after surgery, though he reports improvement. Exam Vital Signs (past 8 hours): - 06/19/22 08:00 06/19/22 12:00 Temperature 97.4 F L 97.5 F L Pulse Rate 83 76 Respiratory Rate 17 18 Blood Pressure 147/91 H 177/97 H Pulse Oximetry 95 97 Oxygen Flow Rate 0 0 Oxygen Delivery Method Room Air Oxygen Flow Rate 0 Narrative Exam Narrative: General:? Patient is well developed and well nourished, in no distress at this time. HEENT:? Normocephalic, atraumatic, extraocular muscles intact, oral pharynx is clear and mucous membranes are moist. Neck: supple and symmetric, trachea is midline, no cervical adenopathy. Negative for JVD Chest:? Normal AP diameter and contour without kyphoscoliosis, no tachypnea, equal chest rise bilaterally. Lungs:? CTA b/l no wheezing rhonchi or rales. Cardio:?RRR no m/r/g. Abdomen: S NT ND. Musculoskeletal:? L BKA, R elbow bandaged which is c/d/i. L arm PICC line in pl ghazal. Extremities: No edema or joint effusions visible, though has R elbow bandaged and L BKA as noted above. No cyanosis or clubbing. Skin:? Pale,? Warm to touch,dry and intact without rashes, ulcerations or petechiae.? Neuro:? Alert and orientated x3,? sensation to touch intact in all remaining ext remities, no gross deficits noted of cranial nerves. Psych:? Patient has a well-kept appearance, appropriate affect, mental status attitude thought context and judgment are appropriate for age. Objective Labs Result Diagrams: 06/19/22 06:38 06/19/22 06:38 Labs: Laboratory Results - last 24 hr 06/19/22 06/19/22 06/19/22 06:38 06:38 09:26 WBC 5.5 RBC 4.21 L Hgb 13.1 L Hct 38.2 L MCV 90.6 MCH 31.0 MCHC 34.2 RDW 12.6 Plt Count 247 Neut % (Auto) 62.3 Lymph % (Auto) 18.9 L [place] % (Auto) 11.6 Eos % (Auto) 6.7 H Baso % (Auto) 0.5 Neut # (Auto) 3400 Lymph # (Auto) 1000 L [place] # (Auto) 600 Eos # (Auto) 400 Baso # (Auto) 0 Sodium 136 L Potassium 4.2 Chloride 105 Carbon Dioxide 25 BUN 12 Creatinine 0.71 Estimated GFR > 60 BUN/Creatinine Ratio 16.9 Glucose 107 H Calcium 8.9 Total Bilirubin 0.6 AST 36 ALT 68 H Alkaline Phosphatase 58 Total Protein 7.4 Albumin 4.0 Globulin 3.4 Albumin/Globulin Ratio 1.2 Vancomycin Trough 15.4 PFSH Medical History (Updated 06/18/22 @ 09:57 by Maira Peoples PA-C) History of left below knee amputation Sacral decubitus ulcer Spina bifida Surgical History (Updated 06/17/22 @ 19:09 by Mau Maria DO) S/P FISH AND WILDLIFE BIOLOGIST shunt Family History (Updated 06/17/22 @ 18:54 by Mau Maria DO) Mother Hypertension Father No pertinent past medical history Social History household members: family Smoking Status: Never smoker alcohol intake: current substance use type: marijuana Assessment & Plan Assessment & Plan narrative: 41 M admitted with septic arthritis, medicine consulted for HTN. 1. Septic arthritis of the R elbow. - now on ceftriaxone and vanco. Agree with current antibiotic plan (if cultures negative discharge home with 6 weeks of ceftriaxone). - management per orthopedics 2. HTN - have increased to amlodipine 10 mg without much change in BP, will add losartan today. - suspect currently his BP are elevated in setting of pain as well - EKG is unremarkable. - he is currently asymptomatic so no need for aggressive BP management at this time. Recommend PCP follow up for further adjustments, he has new PCP appointment in approx 2 weeks. - no significant electrolyte abnormalities. 3. history of spina bifida Code: Full, surrogate is his mother. DVT: on Heparin I have utilized all available immediate resources to obtain, update, or review the patient's current medications. Time Spent With Patient Critical Care time: I spent a total of [] minutes of critical care time on this patient's care today; this time is exclusive of procedural time. Quality VTE Deep Vein Thrombosis/Pulmonary Embolism Present on Admission: No
[2022-06-19] MEDS: LOSARTAN 25 MG TABLET PO (15:09)
--- NOTE | 2022-06-19 17:51 | PC.NURSE ---
Pt is AxOx4, w/c bound at baseline but pt is able to uses commode and uses his urinal. VSS except BP is slightly higher but pt has scheduled BP med. Pt c/o L elbow and requesting PRN Oxy 10 Q3hrs. Drsg on R elbow changed. No drainage and it is healing well. No other change. Continue monitor.
[2022-06-19] MEDS: SENNOSIDES 8.6 MG TABLET 17.2 MG PO (21:44)
[2022-06-20 00:13] VITALS: BP 149/98; PULSE 89; RESP 18; TEMP 36.3; O2SAT 94
[2022-06-20] MEDS: OXYCODONE IR 10 MG TABLET PO (02:29)
[2022-06-20] MEDS: VANCOMYCIN 1,500 MG/300 ML PIGGYBACK 200 MG IV ×2 (02:29→09:56)
[2022-06-20 03:24] VITALS: BP 155/95; PULSE 84; RESP 18; TEMP 36.4; O2SAT 93
[2022-06-20] MEDS: HYDROMORPHONE 0.5 MG INJ IV (04:48)
[2022-06-20] MEDS: diphenhydrAMINE 25 MG TABLET 50 MG PO (06:24)
--- NOTE | 2022-06-20 07:25 | P.DS_ITS ---
History of Present Illness History of Present Illness Date Patient Seen: 06/20/22 Time Patient Seen: 07:25 Chief complaint: Right elbow pain, Warm, Swollen Narrative: Operative Date/Time/Diagnoses Date of procedure: 06/16/22 Time of procedure: 14:25 Pre-op diagnosis: Right elbow septic arthritis Spina bifida Post-op diagnosis: same Procedure & Clinicians Procedure: Arthrotomy and drainage, irrigation septic arthritis right elbow joint CPT code 22430 Same procedure as scheduled: Yes Indications: The patient is a 41-year-old male with a history of spina bifida that presents with acute onset right elbow pain and swelling.? He is right-hand dominant.? He is wheelchair-bound.? He has a history of a left below-knee amputation for infection and right toe amputations for infection.? He has also had flaps for sacral decubitus ulcers in the distant past.? No recent infections to his knowledge.? Recently moved up from [place].? Works at [employer].? He had a 2 day history of increased pain and swelling to the right elbow was brought in and found to have an effusion.? This was aspirated in the emergency room which came back with 45,000 cells 99% PMNs.? No organisms were seen.? No crystals were seen.? Due to the high % of PMNs and high cell count he was felt to have high suspicion for septic arthritis and was indicated for operative arthrotomy drainage and washout.? He was placed on empiric antibiotics.? The risks and benefits of the procedure have been discussed with the patient given the opportunity to ask questions.? The risks of surgery include but are not limited to infection, need for additional procedures, persistence of pain, damage to nerves and blood vessels, posttraumatic arthritis, DVT, PE, cardiopulmonary complications and .? The patient expressed a thorough understanding of the risks and benefits of surgery and has elected to proceed.? Consent was signed . Surgeon: Claudine Combs Click Yes if Unassisted: Yes Anesthesia Type: General and Local Operative Notes Findings: Copious Murky yellow fluid on entry to the radiocapitellar joint. Closure Type: primary Specimen(s): other (Specimen sent for culture and sensitivity) Prosthetic devices, grafts, tissues, transplants, or devices: Medium Hemovac drain placed Applied: drain(s) (Medium Hemovac) Estimated Blood Loss (mL): 5 Blood products transfused: none Tourniquet time (min): 36 Discharge Providers Provider Date of admission: 06/16/22 03:06 Discharge Date: 06/20/22 Primary care physician: Yair Garcia DO Consults: 06/16/22 17:04 Consult to Discharge Planning Routine Comment: Consult to Physical Therapy Evaluate & Treat Comment: Physician Instructions: Evaluate and Treat Consult to Respiratory Therapy Evaluate & Treat Comment: Physician Instructions: Evaluate and treat 06/17/22 18:26 Consult to Hospitalist Service Routine Comment: Consulting Provider: Mau Maria Reason for consultation: HTN Has provider been notified: Yes Discharge provider: Maira Peoples PA-C Summary Hospital Course Discharge Diagnosis: Septic arthritis of RIGHT elbow Essential hypertension Hospital Course: Mr Robertson was taken to the OR by Dr Combs for washout of his elbow d/t presumed septic arthritis. Culture final no growth. but cell count and PMNs consistent with right elbow septic arthritis. PICC line was placed for outpt IV antibiotics. He was hypertensive during his hospital stay and this was managed by the hospitalist service with amlodipine and losartan; he recently moved to this area and has an appointment with his new PCP in 2 weeks. Exam Vital Signs (past 8 hours): - 06/20/22 00:13 06/20/22 03:24 Temperature 97.3 F L 97.5 F L Pulse Rate 89 84 Respiratory Rate 18 18 Blood Pressure 149/98 H 155/95 H Pulse Oximetry 94 93 Oxygen Flow Rate 0 0 Oxygen Delivery Method Room Air Oxygen Flow Rate 0 Narrative Exam Narrative: Full ROM of fingers and wrist. No swelling, erythema or pain in forearm or hand. Sensation to touch intact, brisk capillary refill. Dressing w/ minimal serosanguinous drainage. Objective Labs Result Diagrams: 06/19/22 06:38 06/19/22 06:38 Labs: Laboratory Results - last 24 hr 06/19/22 06/19/22 09:26 14:00 Vancomycin Peak 27.0 Vancomycin Trough 15.4 PFSH Medical History (Updated 06/18/22 @ 09:57 by Maira Peoples PA-C) History of left below knee amputation Sacral decubitus ulcer Spina bifida Surgical History (Updated 06/17/22 @ 19:09 by Mau Maria DO) S/P MEDICAL MASSAGE THERAPIST shunt Family History (Updated 06/17/22 @ 18:54 by Mau Maria DO) Mother Hypertension Father No pertinent past medical history Social History household members: family Smoking Status: Never smoker alcohol intake: current substance use type: marijuana Discharge Assessment & Plan Assessment and Plan Assessment: 1) Septic arthritis R elbow, s/p washout 2) HTN Plan of Treatment: 1) - Pt to receive 2g ceftriaxone q 24hrs x 6 weeks, last day will be 07/27/2022. Per CM note from yesterday: [place] interstate planner is working on getting [place] t set up at outpatient infusion next door, since he is Medicare - Weekly CBC w/ diff, CMP, CRP, ESR while on IV abx. This will start tomorrow and should be repeated every Sunday. - Follow up in ortho office w/ PA or Dr Combs between Jun 27 and Jun 30 for suture removal. 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 2) D/c w/ amlodipine and losartan. F/u for management w/ PCP. Discharge Plan Discharge Plan Patient Disposition: Home Discharge orders & Medications Prescriptions: New ceftriaxone 2 gram recon soln 2 g IV Q24H 42 Days Qty: 37 0RF ceftriaxone 2 gram Recon Soln 2,000 mg IV Q24H Qty: 37 0RF docusate sodium 100 mg Capsule 100 mg PO BID PRN (Reason: constipation) Qty: 60 2RF oxycodone 5 mg Tablet 5 mg PO Q4H PRN (Reason: pain, moderate) Qty: 30 0RF losartan 25 mg Tablet 25 mg PO DAILY Qty: 30 0RF amlodipine [Norvasc] 5 mg Tablet 10 mg PO DAILY Qty: 30 0RF Continued mupirocin 2 % ointment 1 ea TOPICAL BID Label Comments: APPLY TOPICALLY TO THE AFFECTED AREA TWICE DAILY Follow up/Referrals: Yair Garcia DO [Primary Care Provider] - Claudine Combs MD [Physician] - 2 Weeks (Follow up w/ ortho PA or Dr Combs between Jun 27 and Jun 30.) Other Ambulatory Orders: Complete Blood Count AUTO DIFF (Routine) Timeframe: 1 Day Facility: [facility] - Location: Laboratory Ordered By: Maira Peoples Comprehensive Metabolic Panel (Routine) Timeframe: 1 Day Facility: [facility] - Location: Laboratory Ordered By: Maira Peoples C-Reactive Protein Quant (Routine) Timeframe: 1 Day Facility: [facility] - Location: Laboratory Ordered By: Maira Peoples Erythrocyte Sedimentation Rate (Routine) Timeframe: 1 Day Facility: [facility] - Location: Laboratory Ordered By: Maira Peoples Diet/Activity/Treatments Diet: Diet as Tolerated Activity: Avoid significant weightbearing to RUE. Transfers as tolerated. Skin/Wound/Dressing Care Report to your healthcare provider any signs of infection, such as:: chills, fever, night sweats, unusual drainage and unusual redness Dressing: Keep incisions dry and wrapped with clean, dry gauze. Do not apply any creams, lotions, or ointments to incisions. Visit Report/Discharge Packet Instructions: DI for Incision and Drainage of a Joint, DI for Prescription Opioid Use, [facility]: Wound Care Stand Alone Forms: Surgery Discharge Discharge Data Primary Care Provider: Yair Garcia Attending Provider: Claudine Combs VTE Deep Vein Thrombosis/Pulmonary Embolism Present on Admission: No
[2022-06-20 08:00] VITALS: BP 161/98; PULSE 75; RESP 18; TEMP 36.3; O2SAT 95
[2022-06-20 08:33] LABS: C-Reactive Protein Quant 3.4 mg/dL (<1.0)
[2022-06-20] MEDS: DOCUSATE 100 MG CAPSULE PO (08:38)
[2022-06-20] MEDS: AMLODIPINE 5 MG TABLET 10 MG PO (08:38)
[2022-06-20] MEDS: cefTRIAXone 2,000 MG in SODIUM CHLORIDE 0.9% 100 ML 200 MG IV (08:39)
[2022-06-20] MEDS: polyethylene glycoL 3350 17 GM POWD.PACK PO (08:39)
[2022-06-20] MEDS: HEPARIN 5,000 UNIT/ML VIAL 5000 UNIT SUBCUT (08:39)
[2022-06-20 08:44] VITALS: BP 161/98
[2022-06-20] MEDS: LOSARTAN 25 MG TABLET PO (08:44)
--- NOTE | 2022-06-20 10:15 | PT-IP ANOTE ---
Attempted to see pt at 10:15, pt refused therapy is pending d/c home and feels he is at his baseline mobility w/ no further needs.
--- NOTE | 2022-06-20 11:25 | CM.DPC ---
DCP Cont: Patient has discharge orders. Shreya Nagel had called due to referral that was sent. Let her know that it was for infusion, and she is routing to nursing. Pamela Cosme, PAC/ortho, has written a prescription for Ceftriaxone. Patient received dose here. Spoke to Raegan at infusion, she has referral, was also referred to Kinza in intake. Left Kinza a message, let her know that patient is inquiring on a time for tomorrow for his infusion, which is still pending. In the message, gave her the patient's phone number to call with a time. Have already faxed Raegan the script. P: Patient is to be discharging home today and is to be following up tomorrow at the [facility], time is still pending. Emeli Eng RN/Pit Shovel Operator
[2022-06-20 12:00] VITALS: BP 137/89; PULSE 93; RESP 18; TEMP 36.5; O2SAT 98
--- NOTE | 2022-06-20 13:55 | PC.NURSE ---
Pt is dressed and ready for discharge home with his Mother. PICC dsg has been changed. New dressing applied to his right elbow. Went over d/c instructions with Pt-discussed d/c meds, time of last dose, reviewed stroke education, s/s of infection, Pt does not drive but reminded Pt to drink plenty of fluids to prevent constipation or dehydration. Pt to follow up with Dr. Combs as scheduled and have daily abx infusions at the Infusion center. Pt denies further questions and was escorted out to POV with Mother and all belongings
== END 2022-06-20 13:59 | disposition home or self-care (01) | DRG 508 ==
LOC: ED 06-16 02:07 → AC 06-16 03:10
PROVIDERS: Admitting Provider Orthopaedic Surgery Foot and Ankle Surgery; Emergency Provider Emergency Medicine; PCP Family Medicine; Visit Provider Orthopaedic Surgery Foot and Ankle Surgery
PROC: 0R9L0ZZ Drainage of Right Elbow Joint, Open Approach (ICD-10-PCS; principal; 2022-06-16 13:15)
DX: M00.821 Arthritis due to other bacteria, right elbow (principal); L84 Corns and callosities; I10 Essential (primary) hypertension; Z20.822 Contact with and (suspected) exposure to COVID-19
CPT/HCPCS: 20605; 36415; 36592; 73080; 80048; 80053; 80202; 85025; 85027; 85651; 86140; 87040; 87070; 87075; 87205; 87635; 89051; 89060; 93971; 96365; 96366; 96375; 96376; 97162; 97530; 99281; 99284; C9803; J0690; J0696; J1170; J1642; J1644; J2250; J2405; J2704

== ENCOUNTER → 2022-09-26 08:14 | Outpatient (CLI) | payer MEDICARE, MEDICAID, SELFPAY ==
[2022-06-16 11:23] VITALS: BMI 28.8
== END ==
PROVIDERS: PCP Family Medicine; Visit Provider Urology
DX: Q05.2 Lumbar spina bifida with hydrocephalus (principal); N39.0 Urinary tract infection, site not specified; R31.0 Gross hematuria; R39.81 Functional urinary incontinence
CPT/HCPCS: 51798; 81002; 87077; 87086; 87186; 99214

== ENCOUNTER → 2022-10-06 12:57 | Outpatient (CLI) | payer MEDICARE, MEDICAID, SELFPAY ==
[2022-06-16 11:23] VITALS: BMI 28.8
--- NOTE | 2022-10-06 12:58 | DI.US.S_ITS ---
PROCEDURE: US RENAL COMPLETE INDICATIONS: Hematuria TECHNIQUE: Real-time scanning was performed of the kidneys and bladder, with image documentation. COMPARISON: None. FINDINGS: Kidneys: Kidneys are normal in size. Right kidney measures 11.1 cm long; left kidney measures 11.3 cm long. Right renal cortical thickness is 2.4 cm; left renal cortical thickness is 1.9 cm. Renal cortical echotexture is normal. No hydronephrosis or nephrolithiasis. No suspicious solid mass lesions. Bladder: Pre-void bladder volume is 6.7 mL. Post-void residual was not measured as this patient is incontinent secondary to reported history of spinal bifida. There is mild thickening of the urinary bladder wall. Ureteral jets not visualized. Miscellaneous: No free pelvic fluid. IMPRESSION: Normal sonographic appearance of the bilateral kidneys. No evidence for hydronephrosis or renal stones. Mild thickening of the urinary bladder which may be related to incomplete distension. However, cystitis may have a similar appearance. Recommend clinical and laboratory correlation. Dictated by: Tigre Baxter M.D. on 10/06/2022 at 14:05 Approved by: Tigre Baxter M.D. on 10/06/2022 at 14:10
== END ==
PROVIDERS: PCP Family Medicine; Referring Provider Urology; Visit Provider Urology
DX: Q05.9 Spina bifida, unspecified (principal); R31.0 Gross hematuria
CPT/HCPCS: 76770

== ENCOUNTER → 2022-10-11 13:43 | Outpatient (CLI) | payer MEDICARE, MEDICAID, SELFPAY ==
[2022-06-16 11:23] VITALS: BMI 28.8
[2022-10-11 14:45] LABS: Appearance Urine UA SL CLOUDY; Bilirubin Urine UA NEGATIVE (NEGATIVE); Color Urine UA YELLOW; Glucose Urine UA NEGATIVE (Negative); Ketones Urine UA NEGATIVE (NEGATIVE); Leukocyte Esterase Urine UA 1+ (NEGATIVE); Nitrite Urine UA NEGATIVE (Negative); Occult Blood Urine UA 3+ (Negative); Protein Urine UA 3+ (Negative); Specific Gravity Urine UA 1.025 (1.000-1.035); Urobilinogen Urine UA 0.2 E.U./dL (0.2); pH Urine UA 5.5 (4.5-8.0)
[2022-10-11 15:16] LABS: Bacteria Urine None Seen; Culture Indicated Urine Specimen Cultured; RBC Urine 30-100/HPF (0-5/HPF); Squamous Epithelial Cell Urine 1-5 /HPF (0-5/HPF); WBC Urine 10-30/HPF (0-5/HPF)
== END ==
PROVIDERS: PCP Family Medicine; Referring Provider Urology; Visit Provider Urology
DX: R31.0 Gross hematuria (principal); R39.81 Functional urinary incontinence
CPT/HCPCS: 81001; 87077; 87086; 87186

== ENCOUNTER → 2022-10-27 13:27 | Outpatient (CLI) | payer MEDICARE, MEDICAID, SELFPAY ==
[2022-06-16 11:23] VITALS: BMI 28.8
== END ==
PROVIDERS: PCP Family Medicine; Visit Provider Urology
DX: R31.0 Gross hematuria (principal); R32 Unspecified urinary incontinence
CPT/HCPCS: 87086

== ENCOUNTER → 2022-10-27 14:24 | Outpatient (CLI) | payer MEDICARE, MEDICAID, SELFPAY ==
[2022-06-16 11:23] VITALS: BMI 28.8
--- NOTE | 2022-10-27 14:26 | DI.RAD.S_ITS ---
PROCEDURE: XR KUB INDICATIONS: Bladder calculi TECHNIQUE: One view of the abdomen acquired. COMPARISON: [facility], , US RENAL COMPLETE, 10/06/2022, 13:25. FINDINGS: Surgical changes and devices: Presumed ventriculostomy catheter extends from the lower chest on the right across the abdomen into the pelvis.. Bowel: Bowel gas pattern is normal. Soft tissues: No suspicious abdominal calcifications. Within the pelvis, however, several adjacent bladder calculi are present the largest of which measures an estimated 3.0 cm in maximal dimension. These calculi were not visualized by recent urinary tract ultrasound-the bladder appeared contracted at time of prior ultrasound scanning. Visualized solid organ contours appear normal in size. Bones: No suspicious bony lesions. IMPRESSION: Presumed ventriculostomy catheter as discussed. Multiple bladder calculi, both moderate and large in size. At least 5 separate calculi are suspected Dictated by: Amarjit Orona M.D. on 10/27/2022 at 15:31 Approved by: Amarjit Orona M.D. on 10/27/2022 at 15:34
== END ==
PROVIDERS: PCP Family Medicine; Referring Provider Urology; Visit Provider Urology
DX: N21.0 Calculus in bladder (principal); R31.0 Gross hematuria; R32 Unspecified urinary incontinence; R39.81 Functional urinary incontinence; N30.01 Acute cystitis with hematuria; R30.0 Dysuria; Z68.27 Body mass index [BMI] 27.0-27.9, adult
CPT/HCPCS: 52000; 74018; 81002; 87086; 99214

== ENCOUNTER → 2022-10-30 13:56 | Outpatient (CLI) | payer MEDICARE, MEDICAID, SELFPAY ==
[2022-06-16 11:23] VITALS: BMI 28.8
[2022-10-30 14:23] LABS: COVID19 -Nasal RAPID Negative (Negative)
== END ==
PROVIDERS: PCP Family Medicine; Visit Provider Urology
DX: Z20.822 Contact with and (suspected) exposure to COVID-19 (principal)
CPT/HCPCS: 87635; C9803

== ENCOUNTER 2022-10-31 11:19 | Day surgery (SDC) | payer MEDICARE, MEDICAID, SELFPAY ==
[2022-06-16 11:23] VITALS: BMI 28.8
[2022-10-30 07:15] VITALS: BMI 27.2
[2022-10-31] VITALS (9 sets, daily range): BP systolic 141–159; BP diastolic 93–109; PULSE 68–96; RESP 13–21; TEMP 36.3–36.7; O2SAT 94–98; BMI 28.1
--- NOTE | 2022-10-31 12:55 | PM.PREOP ---
Pre-operative Note COVID-19 COVID-19 status: Negative Result date/Date tested (Pos, Neg/Pending): 10/30/22 Criteria for continued procedure: Delay expected to result in less-positive ultimate med/surg outcome and Non-surgical alternatives not available or appropriate per current SOC Interval Note History & Physical reviewed/Exam performed by Physician: Yes Changes to H&P: No
[2022-10-31] MEDS: LACTATED RINGERS 1,000 ML 21 ML IV ×2 (13:14→15:09)
[2022-10-31] MEDS: cefTRIAXone 2,000 MG in SODIUM CHLORIDE 0.9% 100 ML 200 MG IV (13:30)
--- NOTE | 2022-10-31 13:48 | SUR.OPER ---
Lithotomy on padded OR bed, head on pillow, arms secured on padded arm boards at <90 degrees abduction. Legs secured in padded yellow fins stirrups.
--- NOTE | 2022-10-31 16:09 | P.OP_ITS ---
Procedure & Clinicians Procedure: Cystolitholapaxy both mechanical and laser evacuation of bladder stone fragments (note there was extended surgical time due to the size and hardness of the stones.) Same procedure as scheduled: Yes Indications: This is a 42-year-old male with spina bifida neurogenic bladder and recurring urinary tract infections was found to have large bladder stones at flexible cystoscopy in the office he presents at this time for the above procedure. Patient has been covered by culture specific antibiotics. Surgeon: Dave Mcqueen Click Yes if Unassisted: Yes Anesthesia Type: General Operative Notes Findings: Findings: Urethra is normal along its length with normal mucosa. Sphincter is well coapted the prostate shows no obstructive character. On the posterior left there was a stone impacted in the prostatic mucosa which was also treated and removed in its entirety. Within the bladder there were 2 large and 2 smaller stones. The ureteral orifices were not seen the bladder mucosa exhibited bullous edema and erythema from the stones. At the end of the procedure all the large fragments had been removed the stones had been completely fragmented there was a very fine dust adherent to mucosa which will have to be evacuated on its own a [address] Alanis catheter was left in place with 14 cc in the balloon. Closure Type: not applicable Specimen(s): other (Stone fragments) Applied: catheter ([address] 5 [address] Alanis catheter with 14 cc in the balloon) Estimated Blood Loss (mL): 25 Blood products transfused: none Procedure in detail: Procedure in detail: After informed consent was obtained and the patient was identified he was brought to the operating room and placed in a supine position on the table. Anesthesia was then induced and maintained. Ensuring an adequate level of anesthesia the patient was transitioned to the lithotomy position. Once in the lithotomy position he was prepped, draped, prepared for Transurethral procedure. After prepping draping time-out and ensuring an adequate level of anesthesia a 22 Palau[place] cystoscope was passed through the urethra into the bladder. The smaller stones were then crushed with the mechanical lithotrite and as many fragments as could be were evacuated. The stone in the bladder mucosa was attempted to be dislodged and it could not at this point. The cystoscope was removed and a continuous-flow laser resectoscope was put in place laser fiber was inserted and laser energy delivered to the stones. Starting with the stone in the pocket in the prostate which was fragmented. Then attention was turned to the large stone which was sequentially fragmented down to a thin shell. At this point the cystoscope was put in the stone in the prostate was dislodged and crushed with the lithotrite the remainder of the 1st stone was then crushed with the lithotrite. Then using irrigation has the stone fragments as many as could be were evacuated. The laser resectoscope was then reinserted and the laser fiber again employed to deliver laser energy to this 2nd stone. This was a tedious and extended process exceeding normal time as the stones was quite hard and large. Eventually the stone was pared down to where the mechanical lithotrite could be employed it was inserted and the remainder of the stone was then crushed. Then the laser resectoscope was removed the cystoscope reinserted and the fragments were then sequentially washed out. To where there was only a fine dust which was adherent to the mucosa via mucus. No large fragments remained in the bladder. Leaving the bladder full the scope was removed and a 24 [place] 5 cc Alanis catheter was passed through the urethra and into the bladder where the balloon was filled with 14 cc of sterile water and the catheter was placed to gravity drainage. The catheter was then used to irrigate the bladder. The catheter was then placed to gravity drainage the patient awakened having tolerated the procedure well to be transferred to the postanesthesia care unit for recovery. There were no complications the patient is to be discharged home with a Alanis catheter. Patient will continue his antibiotics Complications: none Post-operative Condition: stable Disposition: PACU Plan for aftercare: Patient to be discharged home with his Alanis catheter.
[2022-10-31] MEDS: OXYCODONE/ACETAMINOPHEN 5/325 TABLET 1 TAB PO ×2 (16:40→17:11)
[2022-10-31] MEDS: PHENAZOPYRIDINE 100 MG TABLET 200 MG PO (16:46)
[2022-10-31] MEDS: OXYBUTYNIN 5 MG TABLET PO (16:46)
[2022-10-31] MEDS: HYDROMORPHONE 2 MG INJ IV ×4 (17:17→18:09)
[2022-10-31] MEDS: HYOSCYAMINE 0.125 MG TABLET PO (17:57)
[2022-10-31] MEDS: KETOROLAC 30 MG/ML VIAL IV (17:59)
[2022-10-31] MEDS: hydrOXYzine 50 MG/ML INJ IM (18:00)
[2022-10-31] MEDS: LIDOCAINE 4% SOLN 50 ML TOP (18:40)
[2022-11-06 09:53] LABS: Carbonate Apatite 90 % (.); Magnesium ammon phos 10 % (.); Size 9x13 mm (.)
== END 2022-10-31 19:34 | disposition home or self-care (01) ==
PROVIDERS: PCP Family Medicine; Referring Provider Urology; Visit Provider Urology
PROC: 0TCB8ZZ Extirpation of Matter from Bladder, Via Natural or Artificial Opening Endoscopic (ICD-10-PCS; CPT 52318; principal; 2022-10-31 13:30)
DX: N21.0 Calculus in bladder (principal); N31.8 Other neuromuscular dysfunction of bladder; Z87.440 Personal history of urinary (tract) infections; Q05.9 Spina bifida, unspecified; R32 Unspecified urinary incontinence; Z89.512 Acquired absence of left leg below knee
CPT/HCPCS: 52318; 82365; 82962; J0696; J1100; J1170; J1885; J2405; J2704; J3010; J3410

== ENCOUNTER → 2022-11-15 13:45 | Outpatient (CLI) | payer MEDICARE, MEDICAID, SELFPAY ==
[2022-06-16 11:23] VITALS: BMI 28.8
== END ==
PROVIDERS: PCP Family Medicine; Visit Provider Urology
DX: R31.0 Gross hematuria (principal); N21.0 Calculus in bladder; N31.9 Neuromuscular dysfunction of bladder, unspecified; R39.81 Functional urinary incontinence; R82.81 Pyuria
CPT/HCPCS: 51798; 81002; 87086

== ENCOUNTER → 2022-12-29 12:49 | Outpatient (CLI) | payer MEDICARE, MEDICAID, SELFPAY ==
[2022-11-24 15:35] VITALS: BMI 28.8
--- NOTE | 2022-12-29 12:51 | DI.RAD.S_ITS ---
PROCEDURE: XR KUB INDICATIONS: Urinary stones TECHNIQUE: One view of the abdomen acquired. COMPARISON: [facility], CR, XR KUB, 10/27/2022, 14:42. 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 Bowel: Bowel gas pattern is normal. Soft tissues: A couple of large calcifications projecting over the pelvis, measuring 1.5 cm and 1.7 cm, decreased in number compared with prior. No nephrolithiasis. Bones: No suspicious bony lesions. IMPRESSION: Decreased number of bladder stones. Dictated by: Victor M Mead M.D. on 12/29/2022 at 13:36 Approved by: Victor M Mead M.D. on 12/29/2022 at 13:37
== END ==
PROVIDERS: PCP Family Medicine; Referring Provider Urology; Visit Provider Urology
DX: N21.0 Calculus in bladder (principal)
CPT/HCPCS: 74018

== ENCOUNTER → 2023-01-04 13:55 | Outpatient (CLI) | payer MEDICARE, MEDICAID, SELFPAY ==
[2022-11-24 15:35] VITALS: BMI 28.8
== END ==
PROVIDERS: PCP Family Medicine; Visit Provider Urology
DX: R31.0 Gross hematuria (principal); N31.9 Neuromuscular dysfunction of bladder, unspecified; N21.0 Calculus in bladder; R82.81 Pyuria; R35.0 Frequency of micturition
CPT/HCPCS: 51798; 81002; 87086; 99213

== ENCOUNTER → 2023-01-11 09:35 | Outpatient (CLI) | payer MEDICARE, MEDICAID, SELFPAY ==
[2022-11-24 15:35] VITALS: BMI 28.8
--- NOTE | 2023-01-11 09:36 | DI.CT.S_ITS ---
PROCEDURE: CT PEL WO CON INDICATIONS: Pelvic calcification TECHNIQUE: Noncontrast 3 mm axial sections acquired through the bony pelvis, with coronal and sagittal reformatting. COMPARISON: [facility], CR, XR KUB, 12/29/2022, 12:49. FINDINGS: Image quality: Excellent. Bones: There is no pelvic fracture or dislocation. No suspicious bony lesions. Mild bilateral hip joint osteoarthritic changes are seen with joint space narrowing. No evidence of avascular necrosis of femoral head. Soft tissues: There is no pelvic free fluid or free air. A right-sided peritoneal shunt catheter is seen, the tip is near right lower quadrant. There is no bowel obstruction or abnormal bowel wall thickening. No mesenteric fat stranding. Appendix is visualized and is within normal limits. Diffuse bladder wall thickening is seen. No calcified bladder stone is noted. Previous KUB finding of right lower pelvic calcification is no longer seen. Stable calcification is noted in left side of prostate gland measures 1.6 cm in size. No gross pelvic muscle or soft tissue abnormalities are seen. IMPRESSION: 1. 1.6 cm oval calcification is noted in left side of prostate gland. Previously noted right lower pelvic calcification is no longer seen. No distal ureteral stone or bladder stones. Diffuse bladder wall thickening concerning for cystitis. Underlying bladder wall mass cannot be entirely excluded. Urological correlation is recommended. 2. No pelvic lymphadenopathy by size criteria. No abnormal bowel wall thickening. No free fluid or free air. Normal appendix. 3. Mild bilateral hip joint osteoarthritis. No fracture or dislocation. No evidence of avascular necrosis. Dictated by: Davide Henriquez M.D. on 01/11/2023 at 10:50 Approved by: Davide Henriquez M.D. on 01/11/2023 at 11:02
== END ==
PROVIDERS: PCP Family Medicine; Referring Provider Urology; Visit Provider Urology
DX: N42.0 Calculus of prostate (principal); N21.0 Calculus in bladder; M16.0 Bilateral primary osteoarthritis of hip
CPT/HCPCS: 72192

== ENCOUNTER 2023-01-14 17:43 | Emergency (ER) | payer MEDICARE, MEDICAID, SELFPAY ==
[2022-11-24 15:35] VITALS: BMI 28.8
[2023-01-14 17:55] VITALS: BP 172/108; PULSE 95; RESP 18; TEMP 36.4; O2SAT 98; BMI 28.1
--- NOTE | 2023-01-14 18:01 | DI.RAD.S_ITS ---
PROCEDURE: XR WRIST LT MIN 3V INDICATIONS: atraumatic pain, h/o arthritis TECHNIQUE: Four views of the wrist were acquired. COMPARISON: None. FINDINGS: Bones: No fractures or dislocations. No suspicious bony lesions. Radiocarpal joint space loss and spurring at the lunotriquetral articulation. There is a small osseous fragment adjacent to the ulnar styloid, chronicity uncertain. Slight ulnar negative variance. Slight deformity along the distal pole of the scaphoid which may indicate remote trauma. No significant scapholunate interval widening. Scaphoid view: No fractures. Soft tissues: No suspicious soft tissue calcifications. No significant chondrocalcinosis. IMPRESSION: 1. No acute changes. 2. Mild degenerative changes mainly seen in the proximal carpal row and possible posttraumatic change to the distal scaphoid. 3. Ulnar negative variance with of small calcification adjacent to the ulnar styloid, possibly remote posttraumatic. Dictated by: Uyen Campos M.D. on 01/14/2023 at 18:23 Approved by: Uyen Capmos M.D. on 01/14/2023 at 18:27
--- NOTE | 2023-01-14 18:30 | PC.NURSE ---
Pt reports recent surgery about 4 months ago for surgery on his right elbow with complications of infection.
[2023-01-14 18:33] VITALS: BP 184/107; PULSE 87; O2SAT 97
[2023-01-14 18:34] VITALS: BP 184/107; PULSE 90; RESP 20; TEMP 37; O2SAT 95
[2023-01-14 18:36] VITALS: BP 170/101; PULSE 87; O2SAT 97
--- NOTE | 2023-01-14 18:45 | ED.EXTPRO ---
HPI - Extremity Problem General Chief complaint: Extremity Problem,Nontraumatic Stated complaint: L wrist, pain,swelling,stiff, nausa x3 Time Seen by Provider: 01/14/23 18:39 Mode of arrival: Wheelchair History of Present Illness HPI Narrative: 42-year-old male nonsmoker with history of hypertension and a prior skin infection with possible septic right elbow presents with left wrist pain in the absence of injury. He states he is had these symptoms before and told it was arthritis but this time it seems to be worse. He has significant pain with any range of motion. He denies any numbness, tingling or weakness. He denies any elbow or shoulder pain. He is had no systemic complaints such as fever, chills nor nausea or vomiting. Denies chest pain, shortness of breath or cough. He has been taking Motrin with minimal relief. Related Data Home Medications Medication Instructions Recorded Confirmed amlodipine 5 mg tablet See Rx Instructions .Route .COMPLEX 10/31/22 11/15/22 Previous Rx's Medication Instructions Recorded Male Incontinence Briefs #100 ea 08/10/22 Prevail Male Guard #100 ea 08/10/22 losartan 25 mg tablet See Rx Instructions .Route 08/22/22 .COMPLEX #90 tabs hydrocodone 5 mg-acetaminophen 325 1 tab PO Q4-6H PRN pain #10 tabs 01/14/23 mg tablet ketorolac 10 mg tablet 10 mg PO Q6H PRN pain #14 tabs 01/14/23 Allergies Allergy/AdvReac Type Severity Reaction Status Date / Time hydrocodone [From Vicodin] AdvReac Mild Nausea Verified 01/14/23 17:58 Review of Systems Review of Systems Narrative: GENERAL: Denies chills, fatigue, malaise, fever, sweats. HEENT: Denies sinus pain, ear pain, sore throat, difficulty swallowing, dizziness. RESPIRATORY: Denies dyspnea, cough, wheezing, hemoptysis, sputum. CARDIOVASCULAR: Denies chest pain, palpitations, orthopnea, edema, GASTROINTESTINAL: Denies nausea, vomiting, abdominal pain, diarrhea, constipation, melena. : Denies dysuria, frequency, incontinence, hematuria, urinary retention. MUSCULOSKELETAL: See HPI SKIN: Denies rash, skin lesions, or other NEUROLOGIC: Denies weakness, headache, numbness, change in speech, confusion, seizures, incoordination. PSYCHIATRIC: No concerning psychosocial issues. 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 Well-developed patient, in mild distress. HEAD: Atraumatic. Normocephalic. EYES: Pupils equal round and reactive. Extraocular motions intact. No scleral icterus. No injection or drainage. ENT: Nose without bleeding, purulent drainage. Throat without erythema, tonsillar hypertrophy or exudate. Airway patent. NECK: Trachea midline. Non tender CARDIOVASCULAR: Regular rate and rhythm without murmurs, gallops, or rubs. RESPIRATORY: Clear to auscultation. Breath sounds equal bilaterally. No wheezes, rales, or rhonchi. GASTROINTESTINAL: Abdomen soft, non-tender, nondistended. EXTREMITIES: Left wrist with decreased range of motion secondary to pain, no obvious external manifestation of injury, no deformity, no redness, warmth or swelling, neurovascularly intact BACK: Nontender without deformity or crepitance. No flank tenderness. NEURO: AOx3. SKIN: No rash or erythema of visible areas Initial Vital Signs Initial Vital Signs: Vital Signs Temperature 97.6 F 01/14/23 17:55 Pulse Rate 95 H 01/14/23 17:55 Respiratory Rate 18 01/14/23 17:55 Blood Pressure 172/108 H 01/14/23 17:55 Pulse Oximetry 98 01/14/23 17:55 Oxygen Delivery Method Room Air 01/14/23 17:55 Course Orders Ordered: ED Orders 01/14/23 18:01 XR wrist LT min 3V Stat 01/14/23 18:55 BMP [Basic Metabolic Panel] Stat CBC Auto Diff [Complete Blood Count AUTO DIFF] Stat CRP [C-Reactive Protein Quant] Stat ESR [Erythrocyte Sedimentation Rate] Stat Uric Acid Stat Discontinued Medications Hydrocodone Bitart/Acetaminophen (Hydrocodone/Acet 5/325 Prepack) 1 bottle MISC SEEINSTR ONE Stop: 01/14/23 18:43 Last Admin: 01/14/23 19:21 Dose: 1 bottle Documented By: ABRIL Vital Signs Vital signs: Vital Signs - 8 hr 01/14/23 17:55 01/14/23 18:34 01/14/23 18:33 Temperature 97.6 F 98.6 F Pulse Rate 95 H 90 Respiratory Rate 18 20 Blood Pressure 172/108 H 184/107 H 184/107 H Pulse Oximetry 98 95 Oxygen Delivery Method Room Air Room Air 01/14/23 18:33 01/14/23 18:36 01/14/23 18:36 Temperature Pulse Rate 87 87 Respiratory Rate Blood Pressure 170/101 H Pulse Oximetry 97 97 Oxygen Delivery Method 01/14/23 19:00 01/14/23 19:00 01/14/23 19:30 Temperature Pulse Rate 84 Respiratory Rate Blood Pressure 159/104 H 166/106 H Pulse Oximetry 96 Oxygen Delivery Method 01/14/23 19:30 Temperature Pulse Rate 84 Respiratory Rate Blood Pressure Pulse Oximetry 96 Oxygen Delivery Method MDM - Extremity (Nontraumatic) Lab Data 01/14/23 18:55 01/14/23 18:55 Labs: Lab Results 01/14/23 01/14/23 Range/Units 18:55 18:55 WBC 8.1 (4.5-11.0) X10^3/uL RBC 4.95 (4.5-5.9) X10^6/uL Hgb 15.2 (13.5-17.5) g/dL Hct 44.2 (41-53) % MCV 89.5 (80-100) fL MCH 30.7 (26-34) PG MCHC 34.3 (30-36) % RDW 13.5 (11.6-14.8) % Plt Count 241 (150-400) X10^3/uL Neut % (Auto) 64.9 (50-75) % Lymph % (Auto) 22.0 L (25-40) % [place] % (Auto) 8.3 (3-14) % Eos % (Auto) 4.1 H (2-4) % Baso % (Auto) 0.7 (0-2) % Neut # (Auto) 5200 (0280-8325) /uL Lymph # (Auto) 1800 (9254-8058) /uL [place] # (Auto) 700 (0-900) /uL Eos # (Auto) 300 (0-450) /uL Baso # (Auto) 100 (0-100) /uL ESR 7 (0-15) MM/HR Sodium 137 (137-145) mmol/L Potassium 4.0 (3.4-5.1) mmol/L Chloride 104 (98-107) mmol/L Carbon Dioxide 24 (22-32) mmol/L BUN 15 (9-20) mg/dL Creatinine 0.80 (0.66-1.25) mg/dL Estimated GFR > 60 (>60) mL/min BUN/Creatinine Ratio 18.8 (6-22) Glucose 101 H (70-100) mg/dL Uric Acid 7.1 (3.5-8.5) mg/dL Calcium 9.1 (8.4-10.2) mg/dL C-Reactive Protein 0.9 (<1.0) mg/dL MDM Narrative Medical decision making narrative: CC: 42-year-old male with nontraumatic left wrist pain over the past few days Complicating co-morbidities: Hypertension, prior septic joint Data collected from: Patient Medical records reviewed: Prior notes reviewed in our EMR Differential considered, but not limited to: Arthritis, gout, infectious process versus other Exam documented above, pertinent findings include: Decreased range of motion secondary to pain, no obvious deformity, no obvious external abnormalities. No swelling, erythema or warmth, no lymphangitis. Neurovascularly intact Lab Test results independently reviewed as above. Pertinent findings: No leukocytosis or left shift, electrolytes within normal Independently reviewed EKG as above Imaging studies independently reviewed: No fracture or dislocation Treatments: Pain medications and patient's own splint Re-evaluations: Some improvement after pain control and Re splinting Discussion: Patient with painful left wrist in the absence of injury. There is no redness or swelling and he has no systemic complaints, labs are reassuring. He is had similar pain in the past when it was diagnosed with arthritis which seems the most likely cause though others were considered as noted above. Septic joint thought extremely unlikely given lack of redness, warmth or swelling and relatively good range of motion. Labs are unremarkable as well. Gout considered but thought less likely given lack of redness Disposition: see below, along with detailed discharge instructions that have been reviewed with patient as well as indications for ED re-evaluation and additional outpatient follow up Discharge Plan Departure Patient Disposition: Home Clinical Impression: Acute wrist pain Instructions: DI for Wrist Pain Activity Restrictions/Additional Instructions: *You have been diagnosed with [left wrist pain, reassuring history and physical exam, no signs of sepsis. Likely arthritic in nature.] *What to do: *Please continue to take your regular medications as directed. [x ] New medication prescriptions sent to your pharmacy: [[facility] ] [ ] New medication written as a paper prescription [ ] No new medications given *Please follow up with your primary care provider in 2-3 days, call for an appointment. Let them know you were seen in the Emergency Department and that we ask that you be seen in follow up. We will electronically transmit a record of today's note if your PCP is in our system *If you do not have a primary care provider please contact the [facility] Resource line at [phone]. They will ask some questions about your medical history and help get you set up with a doctor in the community. *Return to Emergency Department if you should have any new, worsening or concerning symptoms, such as [fever greater than 101 F, shaking chills, worsening pain, persistent vomiting or other bothersome symptoms] You have been prescribed a short course of narcotic medications. These are potentially dangerous and addictive medications that should be used carefully. While on these medications you cannot drive or operate heavy machinery. Additionally, you cannot sign legal documents or perform any duties such as this. Many people get constipated on narcotic medications so it would be advisable to discuss stool softeners with the pharmacist when you pickup driver your prescription. Please understand that we cannot provide further refills of narcotics or controlled substances through the ED and your pain management will need to be through your Primary Care Provider Prescriptions: New ketorolac 10 mg tablet 10 mg PO Q6H PRN (Reason: pain) Qty: 14 0RF hydrocodone-acetaminophen 5-325 mg tablet 1 tab PO Q4-6H PRN (Reason: pain) Qty: 10 0RF No Action (DME) Prevail Male Guard See Rx Instructions .Route .MEDSUPPLY Qty: 100 12RF Rx Instructions: As directed (DME) Male Incontinence Briefs Medium See Rx Instructions .Route .MEDSUPPLY Qty: 100 12RF Rx Instructions: As directed losartan 25 mg tablet See Rx Instructions .ROUTE .COMPLEX Qty: 90 1RF Dose Instruction: TAKE 1 TABLET BY MOUTH DAILY Rx Instructions: TAKE 1 TABLET BY MOUTH DAILY amlodipine 5 mg tablet See Rx Instructions .ROUTE .COMPLEX Patient Comments: TAKE 2 TABLETS BY MOUTH DAILY Rx Instructions: HTN Referrals: Yair Garcia DO [Primary Care Provider] - Stand Alone Forms: Patient Portal/API, Work Release Note
[2023-01-14 19:00] VITALS: BP 159/104; PULSE 84; O2SAT 96
[2023-01-14 19:00] LABS: Add Manual Diff / Slide Review NO; Basophils Absolute Auto 100 /uL (0-100); Basophils Percent Auto 0.7 % (0-2); Eosinophils Absolute Auto 300 /uL (0-450); Eosinophils Percent Auto 4.1 % (2-4); Hematocrit 44.2 % (41-53); Hemoglobin 15.2 g/dL (13.5-17.5); Lymphocytes Absolute Auto 1800 /uL (1100-4500); Mean Corpuscular HGB Conc 34.3 % (30-36); Mean Corpuscular Hemoglobin 30.7 PG (26-34); Mean Corpuscular Volume 89.5 fL (80-100); Monocytes Absolute Auto 700 /uL (0-900); Monocytes Percent Auto 8.3 % (3-14); Neutrophils Absolute Auto 5200 /uL (1500-7000); Neutrophils Percent Auto 64.9 % (50-75); Platelet Count 241 X10^3/uL (150-400); Red Blood Cell Count 4.95 X10^6/uL (4.5-5.9); Red Cell Distribution Width 13.5 % (11.6-14.8); White Blood Cell Count 8.1 X10^3/uL (4.5-11.0)
[2023-01-14] MEDS: HYDROCODONE/ACET 5/325 PREPACK 1 BOTTLE MISC (19:21)
[2023-01-14 19:30] VITALS: BP 166/106; PULSE 84; O2SAT 96
[2023-01-14 19:31] LABS: Erythrocyte Sedimentation Rate 7 MM/HR (0-15)
[2023-01-14 19:33] LABS: BUN Creatinine Ratio 18.8 (6-22); Blood Urea Nitrogen 15 mg/dL (9-20); C-Reactive Protein Quant 0.9 mg/dL (<1.0); Calcium 9.1 mg/dL (8.4-10.2); Carbon Dioxide 24 mmol/L (22-32); Chloride 104 mmol/L (98-107); Estimated Glomerular Filt Rate > 60 mL/min (>60); Glucose 101 mg/dL (70-100); HEMOLYSIS 22 (0-50); Sodium 137 mmol/L (137-145); Uric Acid 7.1 mg/dL (3.5-8.5)
== END 2023-01-14 19:49 | disposition home or self-care (01) ==
PROVIDERS: Emergency Provider Emergency Medicine; PCP Family Medicine
DX: M25.532 Pain in left wrist (principal)
CPT/HCPCS: 36415; 73110; 80048; 84550; 85025; 85651; 86140; 99283; 99284

== ENCOUNTER → 2023-03-10 09:23 | Outpatient (CLI) | payer MEDICARE, MEDICAID, SELFPAY ==
[2022-11-24 15:35] VITALS: BMI 28.8
--- NOTE | 2023-03-10 09:28 | DI.RAD.S_ITS ---
PROCEDURE: XR KUB INDICATIONS: Follow-up pelvic calcification TECHNIQUE: One view of the abdomen acquired. COMPARISON: [facility], CR, XR KUB, 12/29/2022, 12:49. FINDINGS: Surgical changes and devices: Ventriculoperitoneal shunt tubing. The distal end is freely mobile. Bowel: Bowel gas pattern is normal. Soft tissues: There is an ovoid calcification in the low pelvis at the pubic symphysis. No other suspicious calcifications. Bones: No suspicious bony lesions. Congenital hip dysplasia. IMPRESSION: 1. No change in low pelvic calcification. 2. Interval resolution of right lower pelvic calcification. 3. SUPPLY TECHNICIAN shunt noted. Dictated by: Uyen Campos M.D. on 03/10/2023 at 12:21 Approved by: Uyen Campos M.D. on 03/10/2023 at 12:23
== END ==
PROVIDERS: PCP Family Medicine; Referring Provider Urology; Visit Provider Urology
DX: R93.5 Abnormal findings on diagnostic imaging of other abdominal regions, including retroperitoneum (principal); Z98.2 Presence of cerebrospinal fluid drainage device
CPT/HCPCS: 74018

== ENCOUNTER → 2023-06-05 10:24 | Outpatient (CLI) | payer MEDICARE, MEDICAID, SELFPAY ==
[2022-11-24 15:35] VITALS: BMI 28.8
== END ==
PROVIDERS: Family Provider Family Medicine; PCP Family Medicine; Referring Provider Family Medicine; Visit Provider Surgery
DX: G60.3 Idiopathic progressive neuropathy (principal); L97.512 Non-pressure chronic ulcer of other part of right foot with fat layer exposed; L84 Corns and callosities; Z89.512 Acquired absence of left leg below knee
CPT/HCPCS: 11042; 87070; 87075; 87077; 87186; 87205; 99203; 99213

== ENCOUNTER → 2023-06-11 13:26 | Outpatient (CLI) | payer MEDICARE, MEDICAID, SELFPAY ==
[2022-11-24 15:35] VITALS: BMI 28.8
--- NOTE | 2023-06-11 13:29 | DI.RAD.S_ITS ---
PROCEDURE: XR KUB INDICATIONS: Urinary calcifications TECHNIQUE: One view of the abdomen acquired. COMPARISON: [facility], , XR KUB, 03/10/2023, 9:23. 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 Bowel: Bowel gas pattern is normal. Soft tissues: No suspicious abdominal calcifications. Stable central low pelvic calcification. No new calcifications project over the renal shadows or ureteral courses. Visualized solid organ contours appear normal in size. Bones: No suspicious bony lesions. IMPRESSION: 1. No radiographic evidence of new urinary calculi. 2. Stable low pelvis/prostate calcification. Dictated by: Uyen Campos M.D. on 06/11/2023 at 17:49 Approved by: Uyen Campos M.D. on 06/11/2023 at 17:52
--- NOTE | 2023-06-11 13:29 | DI.RAD.S_ITS ---
PROCEDURE: XR FOOT RT MIN 3V INDICATIONS: Wound to right lateral foot TECHNIQUE: Three views of the foot were acquired. COMPARISON: None. FINDINGS: Bones: There is demineralization and ankylosis of the hind and midfoot bones. There is been amputation of the 1st distal phalanx. Hammertoe deformity of the other toes is noted. There are no visible osseous erosions or areas of suspicious periostitis. Soft tissues: There is a small soft tissue defect seen along the lateral aspect overlying the 5th metatarsal base. No underlying foreign body or soft tissue gas. The Achilles tendon is atrophied. IMPRESSION: 1. Lateral soft tissue ulcer without underlying foreign body, soft tissue gas, or radiographic evidence of osteomyelitis. Dictated by: Uyen Campos M.D. on 06/11/2023 at 17:52 Approved by: Uyen Campos M.D. on 06/11/2023 at 17:54
== END ==
PROVIDERS: Family Provider Family Medicine; PCP Family Medicine; Referring Provider Surgery; Visit Provider Surgery
DX: L97.512 Non-pressure chronic ulcer of other part of right foot with fat layer exposed (principal); Z87.448 Personal history of other diseases of urinary system
CPT/HCPCS: 73630; 74018

== ENCOUNTER → 2023-06-12 08:38 | Outpatient (CLI) | payer MEDICARE, MEDICAID, SELFPAY ==
[2022-11-24 15:35] VITALS: BMI 28.8
== END ==
PROVIDERS: Family Provider Family Medicine; PCP Family Medicine; Referring Provider Family Medicine; Visit Provider Surgery
DX: L97.512 Non-pressure chronic ulcer of other part of right foot with fat layer exposed (principal); L84 Corns and callosities; G62.9 Polyneuropathy, unspecified; Z89.512 Acquired absence of left leg below knee
CPT/HCPCS: 11042

== ENCOUNTER → 2023-06-21 14:23 | Outpatient (CLI) | payer MEDICARE, MEDICAID, SELFPAY ==
[2022-11-24 15:35] VITALS: BMI 28.8
== END ==
PROVIDERS: Family Provider Family Medicine; PCP Family Medicine; Referring Provider Family Medicine; Visit Provider Surgery
DX: G60.3 Idiopathic progressive neuropathy (principal); L97.512 Non-pressure chronic ulcer of other part of right foot with fat layer exposed; G62.9 Polyneuropathy, unspecified; L84 Corns and callosities; Z89.512 Acquired absence of left leg below knee; Q05.9 Spina bifida, unspecified; R20.9 Unspecified disturbances of skin sensation; Z99.3 Dependence on wheelchair
CPT/HCPCS: 11042

== ENCOUNTER → 2023-06-22 13:28 | Outpatient (CLI) | payer MEDICARE, MEDICAID, SELFPAY ==
[2022-11-24 15:35] VITALS: BMI 28.8
--- NOTE | 2023-06-22 13:28 | DI.US.S_ITS ---
PROCEDURE: US ARTERIAL DUPLEX LE RT INDICATIONS: NONHEALING RIGHT FOOT WOUND TECHNIQUE: Color and pulse Doppler interrogation was performed of the right lower extremity arterial system, with image documentation. COMPARISON: None. FINDINGS: Common femoral artery: 80 cm/sec, with triphasic flow. Deep femoral artery: 62 cm/sec, with triphasic flow. Proximal superficial femoral artery: 61 cm/sec, with biphasic flow. Mid superficial femoral artery: 65 cm/sec, with biphasic flow. Distal superficial femoral artery: 35 cm/sec, with biphasic flow. Popliteal artery: 45 cm/sec, with biphasic flow. Posterior tibial artery: 45 cm/sec, with biphasic flow. Anterior tibial artery/dorsalis pedis: Occluded Javed-scale imaging description: Mild diffuse plaque IMPRESSION: 1. No significant outflow stenosis. 2. Occluded anterior tibial artery. Dictated by: Doe Frederick M.D. on 06/22/2023 at 15:30 Approved by: Doe Frederick M.D. on 06/22/2023 at 15:31
== END ==
PROVIDERS: Family Provider Family Medicine; PCP Family Medicine; Referring Provider Surgery; Visit Provider Surgery
DX: L97.512 Non-pressure chronic ulcer of other part of right foot with fat layer exposed (principal); I77.1 Stricture of artery
CPT/HCPCS: 93926

== ENCOUNTER → 2023-06-28 14:41 | Outpatient (CLI) | payer MEDICARE, MEDICAID, SELFPAY ==
[2022-11-24 15:35] VITALS: BMI 28.8
== END ==
LOC: WC 14:42
PROVIDERS: Family Provider Family Medicine; PCP Family Medicine; Referring Provider Family Medicine; Visit Provider Surgery
DX: L97.512 Non-pressure chronic ulcer of other part of right foot with fat layer exposed (principal); Q05.9 Spina bifida, unspecified; G62.9 Polyneuropathy, unspecified; L84 Corns and callosities; I10 Essential (primary) hypertension; Z89.512 Acquired absence of left leg below knee
CPT/HCPCS: 11042; 99213

== ENCOUNTER → 2023-07-04 10:21 | Outpatient (CLI) | payer MEDICARE, MEDICAID, SELFPAY ==
[2022-11-24 15:35] VITALS: BMI 28.8
== END ==
PROVIDERS: Family Provider Family Medicine; PCP Family Medicine; Referring Provider Family Medicine; Visit Provider Surgery
DX: N21.0 Calculus in bladder (principal); G60.3 Idiopathic progressive neuropathy; L97.512 Non-pressure chronic ulcer of other part of right foot with fat layer exposed; R20.9 Unspecified disturbances of skin sensation; L84 Corns and callosities
CPT/HCPCS: 11042; 74018; 99213

== ENCOUNTER → 2023-07-04 10:26 | Outpatient (CLI) | payer MEDICARE, MEDICAID, SELFPAY ==
[2022-11-24 15:35] VITALS: BMI 28.8
--- NOTE | 2023-07-04 10:27 | DI.RAD.S_ITS ---
PROCEDURE: XR KUB INDICATIONS: kidney stones TECHNIQUE: One view of the abdomen acquired. COMPARISON: [facility], CR, XR KUB, 06/11/2023, 13:50. [facility], CR, XR KUB, 03/10/2023, 9:23. 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 Bowel: Bowel gas pattern is normal. Soft tissues: No suspicious abdominal calcifications. Visualized solid organ contours appear normal in size. Stable calcification projecting over the pelvic inlet, confirmed external to the bladder on CT dated 01/11/2023. Bones: No suspicious bony lesions. IMPRESSION: No nephrolithiasis. Dictated by: Victor M Mead M.D. on 07/04/2023 at 11:38 Approved by: Victor M Mead M.D. on 07/04/2023 at 11:39
== END ==
PROVIDERS: Family Provider Family Medicine; PCP Family Medicine; Referring Provider Urology; Visit Provider Urology
DX: N21.0 Calculus in bladder (principal)
CPT/HCPCS: 74018

== ENCOUNTER → 2023-07-11 08:50 | Outpatient (CLI) | payer MEDICARE, MEDICAID, SELFPAY ==
[2022-11-24 15:35] VITALS: BMI 28.8
== END ==
PROVIDERS: Family Provider Family Medicine; PCP Family Medicine; Referring Provider Family Medicine; Visit Provider Surgery
DX: L97.512 Non-pressure chronic ulcer of other part of right foot with fat layer exposed (principal); G62.9 Polyneuropathy, unspecified
CPT/HCPCS: 11042; 99212; 99213

== ENCOUNTER → 2023-07-19 08:53 | Outpatient (CLI) | payer MEDICARE, MEDICAID, SELFPAY ==
[2022-11-24 15:35] VITALS: BMI 28.8
== END ==
PROVIDERS: Family Provider Family Medicine; PCP Family Medicine; Referring Provider Family Medicine; Visit Provider Surgery
DX: G60.3 Idiopathic progressive neuropathy (principal); L97.512 Non-pressure chronic ulcer of other part of right foot with fat layer exposed; Z89.512 Acquired absence of left leg below knee; L84 Corns and callosities
CPT/HCPCS: 99213

== ENCOUNTER → 2023-08-02 10:33 | Outpatient (CLI) | payer MEDICARE, MEDICAID, SELFPAY ==
[2022-11-24 15:35] VITALS: BMI 28.8
== END ==
PROVIDERS: Family Provider Family Medicine; PCP Family Medicine; Referring Provider Family Medicine; Visit Provider Surgery
DX: Z86.31 Personal history of diabetic foot ulcer (principal); Z89.512 Acquired absence of left leg below knee
CPT/HCPCS: 99212; 99213

== ENCOUNTER 2023-10-02 05:17 | Emergency (ER) | payer MEDICARE, MEDICAID, SELFPAY ==
[2022-11-24 15:35] VITALS: BMI 28.8
[2023-10-02] VITALS (28 sets, daily range): BP systolic 154–220; BP diastolic 80–126; PULSE 76–93; RESP 16–22; TEMP 37.1; O2SAT 93–99; BMI 30.5
--- NOTE | 2023-10-02 05:22 | ED.GENADULT ---
HPI - General Adult <Esperanza Moody MD - Last Filed: 10/07/23 00:12> General Chief complaint: Extremity Problem,Nontraumatic Stated complaint: left elbow pain possible infected Time Seen by Provider: 10/02/23 05:21 History of Present Illness HPI narrative: 43-year-old gentleman with a history of spina bifida in a wheelchair presents to the ER complaining of severe left elbow pain with concerns that he is developing a septic joint. Similar problems with the right side requiring intervention, surgery and prolonged antibiotics in June of 2022. He describes slight ache in the left elbow over the last day or so and then last night can having severe pain and now was having difficulty touching or moving the elbow in any way. He does not describe fevers, cough, chills. He does not describe any specific injuries. Has not been having chest pain and is short of breath. He is not having any dizziness, nausea, vomiting or diarrhea. Related Data Home Medications Medication Instructions Recorded Confirmed diclofenac potassium 50 mg tablet 50 mg PO TID PRN Pain (Scale Score 10/02/23 10/04/23 4-6) Previous Rx's Medication Instructions Recorded Male Incontinence Briefs #100 ea 08/10/22 Prevail Male Guard #100 ea 08/10/22 hydrocodone 5 mg-acetaminophen 325 1 tab PO Q4-6H PRN pain #10 tabs 10/02/23 mg tablet amlodipine 2.5 mg tablet 2.5 mg PO BEDTIME #90 tabs 10/04/23 losartan 50 mg tablet 50 mg PO DAILY #90 tabs 10/04/23 Allergies Allergy/AdvReac Type Severity Reaction Status Date / Time hydrocodone [From Vicodin] AdvReac Mild Nausea Verified 10/04/23 11:46 Review of Systems <Esperanza Moody MD - Last Filed: 10/07/23 00:12> Review of Systems Narrative: Pertinent positive and negative findings as per HPI Patient History <Esperanza Moody MD - Last Filed: 10/07/23 00:12> Medical History Callus of foot History of bladder stone Chronic pain of left wrist Hydrocephalus Neurogenic bladder Wheelchair dependent Bladder calculi Gross hematuria Callus Incontinence of urine Hypertension Spina bifida Sacral decubitus ulcer History of left below knee amputation Spina bifida Surgical History History of orthopedic surgery (06/16/22) S/P BRASS [employer]DER shunt Family History Mother Hypertension UTI (urinary tract infection) Father No pertinent past medical history Social History marital status: unmarried,single household members: family occupational status: employed Smoking Status: Never smoker alcohol intake: current substance use type: marijuana caffeine: No Type(s) of exercise: decline to answer Smoking Status: Never smoker alcohol intake frequency: holidays/special occasions only Substance Use Type: marijuana Exam <Esperanza Moody MD - Last Filed: 10/07/23 00:12> Narrative Exam Narrative: General: Healthy appearing, in obvious pain. Able to give a complete and coherent history. Well-nourished, wheelchair dependent HEENT: Moist mucous membranes, normal sclera with reactive pupils, Respiratory: Lungs are clear to auscultation, no wheezing no rales no rhonchi. Full and symmetrical air movement Cardiac: Regular rate and rhythm no murmurs no bruits Abdomen: Soft, nontender, good bowel tones, no flank pain Skin: Warm and dry, no rashes Neurologic: Spina bifida, in a wheelchair, no use of the lower extremities, at baseline Extremities: No trauma, left elbow is exquisitely tender, there is no erythema or warmth. He is unable to fully extend or flex the elbow there is no obvious trauma. Left BKA. Brace on right lower extremity Psych: Cooperative, appropriate insight and affect Initial Vital Signs Initial Vital Signs: Vital Signs Temperature 98.8 F 10/02/23 05:20 Pulse Rate 93 H 10/02/23 05:20 Respiratory Rate 22 10/02/23 05:20 Blood Pressure 220/121 H 10/02/23 05:20 Pulse Oximetry 99 10/02/23 05:20 Oxygen Delivery Method Room Air 10/02/23 05:20 <Avelino Verma DO - Last Filed: 10/02/23 15:24> Initial Vital Signs Initial Vital Signs: Vital Signs Temperature 98.8 F 10/02/23 05:20 Pulse Rate 93 H 10/02/23 05:20 Respiratory Rate 22 10/02/23 05:20 Blood Pressure 220/121 H 10/02/23 05:20 Pulse Oximetry 99 10/02/23 05:20 Oxygen Delivery Method Room Air 10/02/23 05:20 Procedures <Esperanza Moody MD - Last Filed: 10/07/23 00:12> Joint Aspiration Joint Asp./Inject. 1: Time of procedure: 06:40 Side of body: left Joint Aspirated: elbow Skin Prep: Chlorhexidine Local Anesthetic: lidocaine 1% Amount of anesthesia used (mL): 0.5 Needle Size Used: 18G Fluid Obtained: turbid Total fluid obtained (mL): 4 Patient Tolerated Procedure: Well Complications: none Course <Esperanza Moody MD - Last Filed: 10/07/23 00:12> Orders Ordered: Discontinued Medications Hydrocodone Bitart/Acetaminophen (Hydrocodone/Acet 5/325 Tablet) 1 tab PO NOW ONE Stop: 10/02/23 11:31 Last Admin: 10/02/23 11:38 Dose: 1 tab Documented By: KAREN Amlodipine Besylate (Amlodipine 5 Mg Tablet) 5 mg PO NOW ONE Stop: 10/02/23 06:53 Last Admin: 10/02/23 06:59 Dose: 5 mg Documented By: FORTUNATO Hydromorphone HCl (Hydromorphone 0.5 Mg Inj) 0.5 mg IV Q15MIN PRN PRN Reason: Pain, Last Admin: 10/02/23 06:31 Dose: 0.5 mg Documented By: Admin: 10/02/23 06:11 Dose: 0.5 mg Documented By: Admin: 10/02/23 05:46 Dose: 0.5 mg Documented By: FORTUNATO Hydromorphone HCl (Hydromorphone 0.5 Mg Inj) 0.5 mg IV NOW ONE Stop: 10/02/23 08:54 Last Admin: 10/02/23 09:01 Dose: 0.5 mg Documented By: KAREN Hydromorphone HCl (Hydromorphone 0.5 Mg Inj) 0.5 mg IV NOW ONE Stop: 10/02/23 15:19 Last Admin: 10/02/23 15:25 Dose: 0.5 mg Documented By: KAREN Acetaminophen (Ofirmev) 1,000 mg in 100 mls @ 400 mls/hr IV NOW ONE Stop: 10/02/23 14:24 Last Infusion: 10/02/23 14:46 Dose: Infused Documented By: Admin: 10/02/23 14:17 Dose: 400 mls/hr Documented By: KAREN Ketorolac Tromethamine (Ketorolac 30 Mg/Ml Vial) 15 mg IV NOW ONE Stop: 10/02/23 06:53 Last Admin: 10/02/23 06:59 Dose: 15 mg Documented By: FORTUNATO Ketorolac Tromethamine (Ketorolac 30 Mg/Ml Vial) 30 mg IV NOW ONE Stop: 10/02/23 14:11 Last Admin: 10/02/23 14:17 Dose: 30 mg Documented By: KAREN Losartan Potassium (Losartan 25 Mg Tablet) 25 mg PO NOW ONE Stop: 10/02/23 06:53 Last Admin: 10/02/23 06:58 Dose: 25 mg Documented By: FORTUNATO Vital Signs Vital signs: Vital Signs - 8 hr 10/02/23 07:30 10/02/23 07:30 10/02/23 08:00 Pulse Rate 81 Respiratory Rate Blood Pressure 178/88 H 162/91 H Pulse Oximetry 93 Oxygen Delivery Method 10/02/23 08:00 10/02/23 08:30 10/02/23 08:30 Pulse Rate 81 85 Respiratory Rate Blood Pressure 161/92 H Pulse Oximetry 94 97 Oxygen Delivery Method 10/02/23 09:00 10/02/23 09:00 10/02/23 09:30 Pulse Rate 80 80 Respiratory Rate Blood Pressure 162/90 H Pulse Oximetry 97 95 Oxygen Delivery Method 10/02/23 09:30 10/02/23 10:00 10/02/23 10:00 Pulse Rate 85 Respiratory Rate Blood Pressure 154/87 H 162/81 H Pulse Oximetry 96 Oxygen Delivery Method 10/02/23 10:30 10/02/23 10:30 10/02/23 11:00 Pulse Rate 79 81 Respiratory Rate Blood Pressure 154/90 H Pulse Oximetry 94 95 Oxygen Delivery Method 10/02/23 11:00 10/02/23 11:30 10/02/23 11:30 Pulse Rate 80 Respiratory Rate Blood Pressure 155/90 H 175/96 H Pulse Oximetry 96 Oxygen Delivery Method 10/02/23 12:00 10/02/23 12:00 10/02/23 12:30 Pulse Rate 81 78 Respiratory Rate Blood Pressure 175/91 H Pulse Oximetry 96 97 Oxygen Delivery Method 10/02/23 12:30 10/02/23 13:00 10/02/23 13:00 Pulse Rate 79 Respiratory Rate 16 Blood Pressure 156/80 H 168/101 H Pulse Oximetry 95 Oxygen Delivery Method Room Air 10/02/23 13:30 10/02/23 13:30 10/02/23 14:00 Pulse Rate 76 87 Respiratory Rate Blood Pressure 177/96 H Pulse Oximetry 96 97 Oxygen Delivery Method 10/02/23 14:00 Pulse Rate Respiratory Rate Blood Pressure 176/106 H Pulse Oximetry Oxygen Delivery Method <Avelino Verma DO - Last Filed: 10/02/23 15:24> Orders Ordered: Discontinued Medications Hydrocodone Bitart/Acetaminophen (Hydrocodone/Acet 5/325 Tablet) 1 tab PO NOW ONE Stop: 10/02/23 11:31 Last Admin: 10/02/23 11:38 Dose: 1 tab Documented By: KAREN Amlodipine Besylate (Amlodipine 5 Mg Tablet) 5 mg PO NOW ONE Stop: 10/02/23 06:53 Last Admin: 10/02/23 06:59 Dose: 5 mg Documented By: FORTUNATO Hydromorphone HCl (Hydromorphone 0.5 Mg Inj) 0.5 mg IV Q15MIN PRN PRN Reason: Pain, Last Admin: 10/02/23 06:31 Dose: 0.5 mg Documented By: Admin: 10/02/23 06:11 Dose: 0.5 mg Documented By: Admin: 10/02/23 05:46 Dose: 0.5 mg Documented By: FORTUNATO Hydromorphone HCl (Hydromorphone 0.5 Mg Inj) 0.5 mg IV NOW ONE Stop: 10/02/23 08:54 Last Admin: 10/02/23 09:01 Dose: 0.5 mg Documented By: KAREN Hydromorphone HCl (Hydromorphone 0.5 Mg Inj) 0.5 mg IV NOW ONE Stop: 10/02/23 15:19 Last Admin: 10/02/23 15:25 Dose: 0.5 mg Documented By: KAREN Acetaminophen (Ofirmev) 1,000 mg in 100 mls @ 400 mls/hr IV NOW ONE Stop: 10/02/23 14:24 Last Infusion: 10/02/23 14:46 Dose: Infused Documented By: Admin: 10/02/23 14:17 Dose: 400 mls/hr Documented By: KAREN Ketorolac Tromethamine (Ketorolac 30 Mg/Ml Vial) 15 mg IV NOW ONE Stop: 10/02/23 06:53 Last Admin: 10/02/23 06:59 Dose: 15 mg Documented By: FORTUNATO Ketorolac Tromethamine (Ketorolac 30 Mg/Ml Vial) 30 mg IV NOW ONE Stop: 10/02/23 14:11 Last Admin: 10/02/23 14:17 Dose: 30 mg Documented By: KAREN Losartan Potassium (Losartan 25 Mg Tablet) 25 mg PO NOW ONE Stop: 10/02/23 06:53 Last Admin: 10/02/23 06:58 Dose: 25 mg Documented By: FORTUNATO Vital Signs Vital signs: Vital Signs - 8 hr 10/02/23 07:30 10/02/23 07:30 10/02/23 08:00 Pulse Rate 81 Respiratory Rate Blood Pressure 178/88 H 162/91 H Pulse Oximetry 93 Oxygen Delivery Method 10/02/23 08:00 10/02/23 08:30 10/02/23 08:30 Pulse Rate 81 85 Respiratory Rate Blood Pressure 161/92 H Pulse Oximetry 94 97 Oxygen Delivery Method 10/02/23 09:00 10/02/23 09:00 10/02/23 09:30 Pulse Rate 80 80 Respiratory Rate Blood Pressure 162/90 H Pulse Oximetry 97 95 Oxygen Delivery Method 10/02/23 09:30 10/02/23 10:00 10/02/23 10:00 Pulse Rate 85 Respiratory Rate Blood Pressure 154/87 H 162/81 H Pulse Oximetry 96 Oxygen Delivery Method 10/02/23 10:30 10/02/23 10:30 10/02/23 11:00 Pulse Rate 79 81 Respiratory Rate Blood Pressure 154/90 H Pulse Oximetry 94 95 Oxygen Delivery Method 10/02/23 11:00 10/02/23 11:30 10/02/23 11:30 Pulse Rate 80 Respiratory Rate Blood Pressure 155/90 H 175/96 H Pulse Oximetry 96 Oxygen Delivery Method 10/02/23 12:00 10/02/23 12:00 10/02/23 12:30 Pulse Rate 81 78 Respiratory Rate Blood Pressure 175/91 H Pulse Oximetry 96 97 Oxygen Delivery Method 10/02/23 12:30 10/02/23 13:00 10/02/23 13:00 Pulse Rate 79 Respiratory Rate 16 Blood Pressure 156/80 H 168/101 H Pulse Oximetry 95 Oxygen Delivery Method Room Air 10/02/23 13:30 10/02/23 13:30 10/02/23 14:00 Pulse Rate 76 87 Respiratory Rate Blood Pressure 177/96 H Pulse Oximetry 96 97 Oxygen Delivery Method 10/02/23 14:00 Pulse Rate Respiratory Rate Blood Pressure 176/106 H Pulse Oximetry Oxygen Delivery Method Medical Decision Making <Esperanza Moody MD - Last Filed: 10/07/23 00:12> Lab Data 10/02/23 05:40 10/02/23 05:40 Labs: Lab Results 10/02/23 10/02/23 Range/Units 05:40 06:35 WBC 9.4 (4.5-11.0) X10^3/uL RBC 5.07 (4.5-5.9) X10^6/uL Hgb 15.7 (13.5-17.5) g/dL Hct 45.5 (41-53) % MCV 89.8 (80-100) fL MCH 31.0 (26-34) PG MCHC 34.5 (30-36) % RDW 13.0 (11.6-14.8) % Plt Count 266 (150-400) X10^3/uL Neut % (Auto) 76.5 H (50-75) % Lymph % (Auto) 14.1 L (25-40) % Fisher % (Auto) 6.4 (3-14) % Eos % (Auto) 2.6 (2-4) % Baso % (Auto) 0.4 (0-2) % Neut # (Auto) 7200 H (9306-6308) /uL Lymph # (Auto) 1300 (8249-2035) /uL Fisher # (Auto) 600 (0-900) /uL Eos # (Auto) 200 (0-450) /uL Baso # (Auto) 0 (0-100) /uL ESR 4 (0-15) MM/HR Sodium 136 L (137-145) mmol/L Potassium 4.2 (3.4-5.1) mmol/L Chloride 103 (98-107) mmol/L Carbon Dioxide 22 (22-32) mmol/L BUN 9 (9-20) mg/dL Creatinine 0.71 (0.66-1.25) mg/dL Estimated GFR > 60 (>60) mL/min BUN/Creatinine Ratio 12.7 (6-22) Glucose 126 H (70-100) mg/dL Calcium 9.8 (8.4-10.2) mg/dL Total Bilirubin 0.8 (0.2-1.3) mg/dL AST 34 (17-59) IU/L ALT 84 H (<50) IU/L Alkaline Phosphatase 71 (38-126) U/L C-Reactive Protein 3.6 H (<1.0) mg/dL Total Protein 8.0 (6.3-8.2) g/dL Albumin 4.5 (3.5-5.0) g/dL Globulin 3.5 (1.7-4.1) g/dL Albumin/Globulin Ratio 1.3 (1.0-2.8) Fluid Color [place] Fluid Appearance Cloudy Fluid RBC 9775 /uL Fld Tot Nucleated Cell 30598 /uL Fluid Polynuclear WBCs 96 % Fluid Mononuclear WBCs 4 % Fluid Eosinophils 0 % Fluid Other Cells 0 % Fluid Crystals None present (NONE) Body Fluid Clot Specimen clotted MDM Narrative Medical decision making narrative: CC: Exquisite and acute onset left elbow pain concerns for septic joint Complicating co-morbidities: Spina bifida, wheelchair use, uses upper extremities for transfer Data collected from: patient Social determinants of health that may influence the patients condition: Spina bifida, wheelchair dependent Medical records reviewed: Hospitalization from June of 2022 with right elbow septic joint complications reviewed Differential considered: Septic arthritis, fracture, sprain Exam documented above, pertinent findings include: Slight fullness to the left elbow unable to fully extend or flex. Exquisitely tender. Minor swelling to the forearm neurovascularly intact distally. No obvious trauma Lab Test results independently reviewed as above. Pertinent findings: CBC is unremarkable with white blood cell count normal at 9.4 Chemistries are reassuring. Slightly elevated AST which appears close to his baseline Sed rate is normal at 4 CRP is significantly elevated at 3.6 Results from left elbow joint aspiration: Imaging studies independently reviewed: Elbow films show no obvious fractures and suggestion of minor effusion Consultations: Treatments: Parenteral Dilaudid, joint aspiration Re-evaluations: Discussion: <Avelino Verma, DO - Last Filed: 10/02/23 15:24> Lab Data Lab results reviewed: Yes I reviewed the patient's lab results. Labs: Lab Results 10/02/23 10/02/23 Range/Units 05:40 06:35 WBC 9.4 (4.5-11.0) X10^3/uL RBC 5.07 (4.5-5.9) X10^6/uL Hgb 15.7 (13.5-17.5) g/dL Hct 45.5 (41-53) % MCV 89.8 (80-100) fL MCH 31.0 (26-34) PG MCHC 34.5 (30-36) % RDW 13.0 (11.6-14.8) % Plt Count 266 (150-400) X10^3/uL Neut % (Auto) 76.5 H (50-75) % Lymph % (Auto) 14.1 L (25-40) % Fisher % (Auto) 6.4 (3-14) % Eos % (Auto) 2.6 (2-4) % Baso % (Auto) 0.4 (0-2) % Neut # (Auto) 7200 H (5565-7568) /uL Lymph # (Auto) 1300 (5265-4924) /uL Fisher # (Auto) 600 (0-900) /uL Eos # (Auto) 200 (0-450) /uL Baso # (Auto) 0 (0-100) /uL ESR 4 (0-15) MM/HR Sodium 136 L (137-145) mmol/L Potassium 4.2 (3.4-5.1) mmol/L Chloride 103 (98-107) mmol/L Carbon Dioxide 22 (22-32) mmol/L BUN 9 (9-20) mg/dL Creatinine 0.71 (0.66-1.25) mg/dL Estimated GFR > 60 (>60) mL/min BUN/Creatinine Ratio 12.7 (6-22) Glucose 126 H (70-100) mg/dL Calcium 9.8 (8.4-10.2) mg/dL Total Bilirubin 0.8 (0.2-1.3) mg/dL AST 34 (17-59) IU/L ALT 84 H (<50) IU/L Alkaline Phosphatase 71 (38-126) U/L C-Reactive Protein 3.6 H (<1.0) mg/dL Total Protein 8.0 (6.3-8.2) g/dL Albumin 4.5 (3.5-5.0) g/dL Globulin 3.5 (1.7-4.1) g/dL Albumin/Globulin Ratio 1.3 (1.0-2.8) Fluid Color [place] Fluid Appearance Cloudy Fluid RBC 9775 /uL Fld Tot Nucleated Cell 90048 /uL Fluid Polynuclear WBCs 96 % Fluid Mononuclear WBCs 4 % Fluid Eosinophils 0 % Fluid Other Cells 0 % Fluid Crystals None present (NONE) Body Fluid Clot Specimen clotted MDM Narrative Medical decision making narrative: CC: Exquisite and acute onset left elbow pain concerns for septic joint Complicating co-morbidities: Spina bifida, wheelchair use, uses upper extremities for transfer Data collected from: patient Social determinants of health that may influence the patients condition: Spina bifida, wheelchair dependent Medical records reviewed: Hospitalization from June of 2022 with right elbow septic joint complications reviewed Differential considered: Septic arthritis, fracture, sprain Exam documented above, pertinent findings include: Slight fullness to the left elbow unable to fully extend or flex. Exquisitely tender. Minor swelling to the forearm neurovascularly intact distally. No obvious trauma Lab Test results independently reviewed as above. Pertinent findings: CBC is unremarkable with white blood cell count normal at 9.4 Chemistries are reassuring. Slightly elevated AST which appears close to his baseline Sed rate is normal at 4 CRP is significantly elevated at 3.6 Results from left elbow joint aspiration: Imaging studies independently reviewed: Elbow films show no obvious fractures and suggestion of minor effusion Consultations: Treatments: Parenteral Dilaudid, joint aspiration Re-evaluations: Discussion: Dr verma: Received turned over. He patient's history and physical exam. Patient does have an elevated CRP but sed rate is normal. Cell counts show a 19,000 white cells. No organisms noted on the g stain. Patient is not febrile. No leukocytosis. I did discuss the case with Dr. Chakraborty on-call with Orthopedic surgery. He stated that there was no definitive reason to go to surgery or antibiotics currently. Patient initially had a very difficult time transitioning from his bed to his wheelchair. He is no use of his legs. Discussed the case with Dr. Maria who was the hospitalist on-call who stated that the patient did not meet criteria for admission to the hospital or for observation. We had an extensive amount of time having the patient seen by Physical therapy and by social work. The patient's primary doctor also evaluated the patient here in the ER. After all of this the patient states that he stated that he would go home. He does have help at home to get him around and also helping him transition to help do his activities of daily living. Attempted to make a follow-up appointment with Orthopedic surgery however the clinic would not schedule him appointment as apparently the patient has unpaid bills. The patient was informed of this and advised to contact the clinic to settle this. We are able to get him a scheduled follow-up appointment on October 04 at 1130 hours with his primary doctor. The patient was informed of this. Will send home with pain medication. He was given strict return precautions and he expressed understanding and agreement with this plan. Discharge Plan Departure Patient Disposition: Home Clinical Impression: Left elbow pain Instructions: DI for Elbow Pain Activity Restrictions/Additional Instructions: You have a follow-up on October [address] Garcia. I also recommend that you contact the orthopedic department as they state that you have an unpaid bills that needs taking care of. Return to the emergency department for worsening symptoms such as fevers, increased pain, increased redness or any other worsening symptoms like we discussed. Prescriptions: New hydrocodone-acetaminophen 5-325 mg tablet 1 tab PO Q4-6H PRN (Reason: pain) Qty: 10 0RF No Action (DME) Prevail Male Guard See Rx Instructions .Route .MEDSUPPLY Qty: 100 12RF Rx Instructions: As directed (DME) Male Incontinence Briefs Medium See Rx Instructions .Route .MEDSUPPLY Qty: 100 12RF Rx Instructions: As directed losartan 50 mg tablet 50 mg PO DAILY Qty: 90 3RF Rx Instructions: take in the AM amlodipine 2.5 mg tablet 2.5 mg PO BEDTIME Qty: 90 3RF Rx Instructions: take dinner/bedtime diclofenac potassium 50 mg tablet 50 mg PO TID PRN (Reason: Pain (Scale Score 4-6)) Rx Instructions: TAKE 1 TABLET BY MOUTH THREE TIMES DAILY NEEDED FOR PAIN Referrals: Yair Garcia, [Primary Care Provider] - Stand Alone Forms: Patient Portal/API ED Sign-out <Esperanza Moody MD - Last Filed: 10/07/23 00:12> Cosign ED Attending Cosignature Attestation: I was immediately available in the department for consultation throughout this patient's visit. Esperanza Moody MD
--- NOTE | 2023-10-02 05:32 | DI.RAD.S_ITS ---
PROCEDURE: XR ELBOW LT MIN 3V INDICATIONS: left elbow pain, ? septic joint TECHNIQUE: 3 views of the elbow were acquired. COMPARISON: None. FINDINGS: Bones: No fractures or dislocations. No suspicious bony lesions. There is a small osteochondroma in the lateral humeral epicondyle. Soft tissues: No elbow joint effusion. Soft tissue swelling and calcification over olecranon. IMPRESSION: 1. No acute bony abnormality or significant joint effusion. 2. A small osteochondroma in the lateral humeral epicondyle. 3. Soft tissue swelling and calcification over the area of olecranon suggesting calcific bursitis or tendonitis. Consider MRI for further evaluation if clinically indicated. Dictated by: Varinder Woodward M.D. on 10/02/2023 at 8:03 Approved by: Varinder Woodward M.D. on 10/02/2023 at 8:06
[2023-10-02] MEDS: HYDROMORPHONE 0.5 MG INJ IV ×5 (05:46→15:25)
[2023-10-02 06:07] LABS: Add Manual Diff / Slide Review NO; Basophils Absolute Auto 0 /uL (0-100); Basophils Percent Auto 0.4 % (0-2); Eosinophils Absolute Auto 200 /uL (0-450); Eosinophils Percent Auto 2.6 % (2-4); Hematocrit 45.5 % (41-53); Hemoglobin 15.7 g/dL (13.5-17.5); Lymphocytes Absolute Auto 1300 /uL (1100-4500); Lymphocytes Percent Auto 14.1 % (25-40); Mean Corpuscular HGB Conc 34.5 % (30-36); Mean Corpuscular Volume 89.8 fL (80-100); Monocytes Absolute Auto 600 /uL (0-900); Monocytes Percent Auto 6.4 % (3-14); Neutrophils Absolute Auto 7200 /uL (1500-7000); Neutrophils Percent Auto 76.5 % (50-75); Platelet Count 266 X10^3/uL (150-400); Red Blood Cell Count 5.07 X10^6/uL (4.5-5.9); White Blood Cell Count 9.4 X10^3/uL (4.5-11.0)
[2023-10-02 06:27] LABS: Alanine Aminotransferase 84 IU/L (<50); Albumin 4.5 g/dL (3.5-5.0); Albumin Globulin Ratio 1.3 (1.0-2.8); Alkaline Phosphatase 71 U/L (38-126); Aspartate Aminotransferase 34 IU/L (17-59); BUN Creatinine Ratio 12.7 (6-22); Bilirubin Total 0.8 mg/dL (0.2-1.3); Blood Urea Nitrogen 9 mg/dL (9-20); C-Reactive Protein Quant 3.6 mg/dL (<1.0); Calcium 9.8 mg/dL (8.4-10.2); Carbon Dioxide 22 mmol/L (22-32); Chloride 103 mmol/L (98-107); Estimated Glomerular Filt Rate > 60 mL/min (>60); Globulin 3.5 g/dL (1.7-4.1); Glucose 126 mg/dL (70-100); HEMOLYSIS < 15 (0-50); Potassium 4.2 mmol/L (3.4-5.1); Sodium 136 mmol/L (137-145)
[2023-10-02 06:34] LABS: Erythrocyte Sedimentation Rate 4 MM/HR (0-15)
[2023-10-02] MEDS: LOSARTAN 25 MG TABLET PO (06:58)
[2023-10-02] MEDS: KETOROLAC 30 MG/ML VIAL 15 MG IV (06:59)
[2023-10-02] MEDS: AMLODIPINE 5 MG TABLET PO (06:59)
[2023-10-02 08:37] LABS: Body Fluid Appearance CLOUDY; Body Fluid Clotted? SPECIMEN CLOTTED; Body Fluid Color PINK; Body Fluid Red Blood Cells 9775 /uL; Body Fluid Tot Nucleated Cells 19375 /uL
[2023-10-02 08:43] LABS: Eosinophils Body Fluid 0 %; Mononuclear WBC Body Fluid 4 %; Other Cells Body Fluid 0 %; Polynuclear WBC Body Fluid 96 %
[2023-10-02 08:48] LABS: Crystals Body Fluid - IN-HOUSE NONE Present
--- NOTE | 2023-10-02 10:49 | P.CALLCOV_ITS ---
Call Coverage Note Note Narrative of Care Provided: Medicine called for admission. This is a 43 year old male with PMH of spina bifida, chronically in wheel chair who presented with L elbow pain. He had previous admission for R septic joint. Orthopedics was consulted and did not recommend antibiotics. No crystals are seen on joint aspiration. There are numerous WBC and RBC on joint aspiration. Patient is not febrile and vitals are stable. Agree that this is not likely septic joint. With mobility issues at [facility] there is concern for his ability to perform ADLs. Recommend PT consult in the ER, pain control as needed. The patient does not meet admission or observation criteria at this time after discussion with case management. Please follow social admission policy, recontact if difficulty in finding placement persists beyond 48 hours.
[2023-10-02] MEDS: HYDROCODONE/ACET 5/325 TABLET 1 TAB PO (11:38)
--- NOTE | 2023-10-02 13:02 | PT.IIE ---
Surgical History (Last Reviewed 10/02/23 @ 05:29 by Esperanza Moody MD) History of orthopedic surgery (06/16/22) S/P NEW PATIENT ESCORT shunt Medical History (Last Reviewed 10/02/23 @ 05:29 by Esperanza Moody MD) Bladder calculi Callus Callus of foot Chronic pain of left wrist Gross hematuria History of bladder stone History of left below knee amputation Hydrocephalus Hypertension Incontinence of urine Neurogenic bladder Sacral decubitus ulcer Spina bifida Spina bifida Wheelchair dependent Physical Therapy Inpatient Evaluation/Re-Eval M1 PT/OT-IP Prior Functional Status Start: 10/02/23 12:52 Freq: Status: Active Protocol: Document 10/02/23 12:40 MB (Rec: 10/02/23 13:02 MB [id number]) Medical Review Prior Functional Status Medical History Reviewed Yes Communication WNLs Mobility and Gait Mod I in w/c, transfers self in BR, tub, has ramp at home Activities of Daily Living and IADL's Mod I Social History Household Members family Living Arrangements Mobile home Number of Floors (Floors) One Floor Number of Stairs To Enter/Railing? Ramped entrance. Lives with mother who drives Home Environment Standard Height Toilet,Tub/ Shower,Ramp Home Equipment Manual Wheelchair Employment Status Unknown M2 PT-IP Current Condition Start: 10/02/23 12:52 Freq: Status: Active Protocol: Document 10/02/23 12:40 MB (Rec: 10/02/23 13:02 MB [id number]) Physical Therapy Current Condition Current Condition Evaluation Date 10/02/23 Treatment Diagnosis Left elbow pain M3 PT-IP Subjective Start: 10/02/23 12:52 Freq: Status: Active Protocol: Document 10/02/23 12:40 MB (Rec: 10/02/23 13:02 MB [id number]) Subjective Physical Therapy Visit Type Type Initial Evaluation Visit Start Time 12:40 Visit Stop Time 12:50 Total Visit Minutes 10 Number of QUALITY COMPLIANCE MANAGER Visits 0 Physical Therapy Visit Comments Patient Comments I told the doctor that I need to stay overnight to make sure my elbow doesn't get worse. I can't really use my arm. Therapy Pain Assessment Pain When Pain Assessed At Rest Pain Present Pain Present Pain Reported Location Left Elbow Intensity 8 Scale Used Numeric (0 - 10) Description Acute Pain Behaviors Guarding Pain Management Techniques Distraction,Modification of Treatment,Re-positioning M4 PT-IP Mobility and Gait Start: 10/02/23 12:52 Freq: Status: Active Protocol: Document 10/02/23 12:40 MB (Rec: 10/02/23 13:02 MB [id number]) PT-Bed Mobility Assessment Supine to Sit Supine to Sit Independent,Head of Bed Elevated Sit to Supine Sit to Supine Independent,Head of Bed Elevated Scooting Scooting to Edge of Bed Standby Assistance PT-Transfer Assessment Comments Mobility Comments Pt on very high gurney for his height that will not lower and his w/c is very low and does not lock on the right wheel. He is unable to WB sufficiently enough through his left arm to try the transfer given left elbow pain . Gait Assessment Comments Gait Comments Pt is non-ambulatory at baseline PT-Balance Assessment Sitting Balance and Reactions Static Sitting Balance Ability Good Dynamic Sitting Balance Ability Good Comments Other Balance Tests/Deviations/Treatment Pt does not stand at baseline : M5 PT-IP Objective Assessments Start: 10/02/23 12:52 Freq: Status: Active Protocol: Document 10/02/23 12:40 MB (Rec: 10/02/23 13:02 MB [id number]) Orientation Orientation/Cognition Level of Alertness Alert Orientation Name,Age,Birthday,Month,Date, Year,Day of Week,Place, Situation Language Function Ability No Deficits Noted Safety Awareness Understands Safety Issues Memory Description No Deficits Noted Gross Range of Motion Upper Extremity ROM Assessment Left Impaired Impairments Guarding left arm d/t pain Lower Extremity ROM Assessment Bilaterally Impaired Impairments LLE prosthesis and RLE AFO Strength Upper Extremity Strength Assessment Left Impaired Lower Extremity Strength Assessment Bilaterally Impaired Comments Strength Comments LLE prosthesis and RLE AFO M7 PT-IP Assessment and Plan Start: 10/02/23 12:52 Freq: Status: Active Protocol: Document 10/02/23 12:40 MB (Rec: 10/02/23 13:02 MB [id number]) PT Summary Assessment and Plan Potential Rehabilitation Potential Good Status of Condition at Evaluation Evolving Summary Impairments Pain,ROM,Strength,Bed Mobility ,Transfers,Activity Tolerance Progress Towards Goals Slow Progress due to Pain Assessment Summary Pt is a 43 y/o male who has history of spina bifida, LLE amputation and prosthesis, and who also wears a right AFO. He requires extensive B UE use and functional strength for all transfers given LE weakness and he is unable to functionally use his LUE well enough to transfer given left elbow pain this date. There are also equipment challenges in the ED: pt is on a very high gurney for his short stature and his w/c does not lock on the right. Given pain and weakness and equipment challenges, recommend mechanical lift for OOB at this time. Goals Bed Mobility Goal Independent Transfer Goal Standby Assistance Other Goals Pt will manage w/c parts and perform w/c mobility at least 100 feet with mod I. Days to Meet Goals 5 Frequency of Treatment Frequency Of Treatment Once a Day Treatment Plan Physical Therapy Treatment Plan Bed Mobility Training,Transfer Training,Therapeutic Exercise ,Discharge Planning Weight Bearing Status Weight Bearing Status Weight Bear as Tolerated Recommendations To Nursing Amount of Assist Needed Mechanical Lift Discharge Recommendations PT Discharge Recommendations Home with 07/05 Assist Available,Home Health Transportation Needs at Discharge Wheelchair/Cabulance
[2023-10-02] MEDS: KETOROLAC 30 MG/ML VIAL IV (14:17)
[2023-10-02] MEDS: ACETAMINOPHEN IV 1,000 MG/100 ML VIAL 400 MG IV (14:17)
--- NOTE | 2023-10-02 14:51 | CM.SWNOTE ---
ED ASSISTED SALES REPRESENTATIVE Note Patient is 43 y/o male who presents to ED due to concern for recent left elbow pain increase of swelling and tenderness. Patient has hx of Spina bifida and is wheelchair bound. Patient endorses significant pain is impacting mobility in wheelchair. Patient's PCP is Dr. Yair Garcia, Patient has [facility], [employer] & Medicaid. Patient has hx of hydrocephalus, Septic arthritis of right elbow resulting in surgery, hypertension, and primarily Spina bifida reliant on wheelchair. ASSISTED SALES REPRESENTATIVE enters room to meet with patient. Patient presents as A/Ox4, patient endorses he resides at home with mother in [place]. Patient endorses he is typically independent with ADLs and transfers. Patient receives rides from mother or uses paratransit. Patient endorses his elbow is still in pain but it felt better after it was drained. PT attempts to evaluate patient but is unable to transfer patient due to the ED bed height and low height of w/c, it was also reported that the right wheelchair brake is not working. There is concern about patient's d/c to home due to his lack of mobility and level of pain impacting his ability to be mobile in wheelchair. Ortho is consulted and able to f/u with patient further outpatient, ASSISTED SALES REPRESENTATIVE asks UR to review patient as well. Dr. Maria consults it is reported that patient does not meet medical admission criteria at this time. Dr. Verma consults with Dr. Lion. ASSISTED SALES REPRESENTATIVE meets with patient further, he states that his preference is to d/c to home with pain management. Patient denies interest in mechanical lift, Home Health or SNF rehab. Patient states he has a ramp at home. Patient's PCP Dr. Garcia arrives to ED to meet with patient, it is reported that he can f/u with patient in the next few weeks. Patient endorses he feels comfortable enough with d/c to home with pain management and knowing that his brother will be staying at the house for the next several weeks. Plan: patient to d/c to home with family, patient to f/u with ortho this week and f/u with PCP in the next few weeks with outpatient f/u. MIRTHA Uribe
== END 2023-10-02 15:41 | disposition home or self-care (01) ==
PROVIDERS: Emergency Medicine; Emergency Provider Emergency Medicine; Family Provider Family Medicine; PCP Family Medicine
DX: M25.522 Pain in left elbow (principal)
CPT/HCPCS: 20605; 36415; 73080; 80053; 85025; 85651; 86140; 87070; 87075; 87205; 89051; 89060; 96365; 96375; 96376; 97161; 99284; J0131; J1170; J1885

== ENCOUNTER → 2024-03-14 13:53 | Outpatient (CLI) | payer MEDICARE, MEDICAID, SELFPAY ==
[2022-11-24 15:35] VITALS: BMI 28.8
== END ==
PROVIDERS: Family Provider Family Medicine; PCP Family Medicine; Referring Provider Family Medicine; Visit Provider Physician Assistant
DX: S91.114A Laceration without foreign body of right lesser toe(s) without damage to nail, initial encounter (principal); L97.512 Non-pressure chronic ulcer of other part of right foot with fat layer exposed; L84 Corns and callosities; G62.9 Polyneuropathy, unspecified; Q05.9 Spina bifida, unspecified; I10 Essential (primary) hypertension; Z99.3 Dependence on wheelchair; Z89.512 Acquired absence of left leg below knee
CPT/HCPCS: 11042; 97597; 99213

== ENCOUNTER 2024-03-17 13:21 | Emergency (ER) | payer MEDICARE, MEDICAID, SELFPAY ==
[2022-11-24 15:35] VITALS: BMI 28.8
[2024-03-17] VITALS (18 sets, daily range): BP systolic 141–233; BP diastolic 83–108; PULSE 82–99; RESP 13–24; TEMP 36.9; O2SAT 94–99; BMI 28.1
--- NOTE | 2024-03-17 13:29 | DI.RAD.S_ITS ---
PROCEDURE: XR CHEST 1V INDICATIONS: suspected sepsis TECHNIQUE: One view of the chest was acquired. COMPARISON: [facility], CR, XR CHEST FOR PICC 1V, 06/17/2022, 16:41. FINDINGS: Surgical changes and devices: Right-sided ventriculoperitoneal shunt appears intact along its visualized course. Lungs and pleura: Lungs are clear. No pleural effusions or pneumothorax. Mediastinum: Mediastinal contours appear normal. Heart size is normal. Bones and chest wall: No suspicious bony lesions. Overlying soft tissues appear unremarkable. IMPRESSION: No acute cardiopulmonary abnormality is seen. No focal consolidation. Dictated by: Tigre Baxter M.D. on 03/17/2024 at 14:48 Approved by: Tigre Baxter M.D. on 03/17/2024 at 14:51
[2024-03-17 13:46] LABS: Add Manual Diff / Slide Review NO; Basophils Absolute Auto 0 /uL (0-100); Basophils Percent Auto 0.3 % (0-2); Eosinophils Absolute Auto 100 /uL (0-450); Eosinophils Percent Auto 0.7 % (2-4); Hematocrit 45.7 % (41-53); Hemoglobin 15.8 g/dL (13.5-17.5); Lymphocytes Absolute Auto 500 /uL (1100-4500); Lymphocytes Percent Auto 6.8 % (25-40); Mean Corpuscular HGB Conc 34.5 % (30-36); Mean Corpuscular Hemoglobin 30.9 PG (26-34); Mean Corpuscular Volume 89.6 fL (80-100); Monocytes Absolute Auto 500 /uL (0-900); Monocytes Percent Auto 6.1 % (3-14); Neutrophils Absolute Auto 6900 /uL (1500-7000); Neutrophils Percent Auto 86.1 % (50-75); Platelet Count 201 X10^3/uL (150-400)
[2024-03-17] MEDS: SODIUM CHLORIDE 0.9% 1,000 ML 1000 ML IV ×2 (13:50→17:25)
[2024-03-17] MEDS: ONDANSETRON 4 MG/2 ML INJ IV ×2 (13:50→17:25)
[2024-03-17 13:55] LABS: Prothrombin Time 11.9 SECONDS (9.4-12.5)
[2024-03-17 13:58] LABS: PTT Partial Thromboplastin Tim 33 SECONDS (25.1-36.5)
[2024-03-17 14:04] LABS: Alanine Aminotransferase 75 IU/L (<50); Albumin 4.8 g/dL (3.5-5.0); Albumin Globulin Ratio 1.4 (1.0-2.8); Alkaline Phosphatase 68 U/L (38-126); Aspartate Aminotransferase 33 IU/L (17-59); BUN Creatinine Ratio 10.7 (6-22); Bilirubin Total 1.2 mg/dL (0.2-1.3); Blood Urea Nitrogen 9 mg/dL (9-20); Calcium 9.3 mg/dL (8.4-10.2); Carbon Dioxide 25 mmol/L (22-32); Chloride 102 mmol/L (98-107); Estimated Glomerular Filt Rate > 60 mL/min (>60); Globulin 3.4 g/dL (1.7-4.1); Glucose 118 mg/dL (70-100); HEMOLYSIS < 15 (0-50); Lipase 142 U/L (23-300); Potassium 3.8 mmol/L (3.4-5.1); Sodium 136 mmol/L (137-145); Total Protein 8.2 g/dL (6.3-8.2)
[2024-03-17 14:05] LABS: Lactate (Lactic Acid) 1.4 mmol/L (0.7-2.1)
--- NOTE | 2024-03-17 14:08 | PC.NURSE ---
Patient assisted to room 4, resting on gurney at this time, attempting to use urinal to give urine sample. Patient reports he is typically incontinent of urine but that he will try to use urinal. Charge nurse reports that patient has had both sets of blood cultures already drawn while patient was awaiting room. NS IVF's infusing to R AC IV with no complications.
[2024-03-17 14:21] LABS: Procalcitonin 1.51 ng/mL (<0.5)
[2024-03-17 14:46] LABS: Urine Volume 10mL (spun)
[2024-03-17 14:47] LABS: Bacteria Urine None Seen; Culture Indicated Urine Specimen Cultured; RBC Urine 1-5/HPF (0-5/HPF); Squamous Epithelial Cell Urine 1-5 /HPF (0-5/HPF); WBC Urine 1-5/HPF (0-5/HPF)
--- NOTE | 2024-03-17 14:56 | ED.NAVMDI ---
HPI - Nausea/Vomiting/Diarrhea General Chief complaint: Nausea/Vomiting/Diarrhea Stated complaint: nausea, can't keep anything down, fever Time Seen by Provider: 03/17/24 14:56 Source: patient Mode of arrival: Wheelchair History of Present Illness HPI Narrative: 43-year-old male with history of spina bifida, sensation stops at level of his distal thighs/knees bilateral, complains of 2 days' duration of cough productive of green sputum, feeling feverish, no known exposure to persons with COVID or influenza. Also has left upper quadrant abdominal discomfort, nausea, nonbloody emesis, also had loose stools 2 days ago, improved after OTC Imodium. [facility] is [facility], no swelling redness to right distal foot ulcers, nor to left BKA stump site. Related Data Previous Rx's Medication Instructions Recorded Male Incontinence Briefs #100 ea 08/10/22 Prevail Male Guard #100 ea 08/10/22 amlodipine 2.5 mg tablet 2.5 mg PO BEDTIME #90 tabs 10/04/23 losartan 50 mg tablet 50 mg PO DAILY #90 tabs 10/04/23 triamcinolone acetonide 0.5 % 1 applic topical BID PRN Psoriasis 12/21/23 topical cream #15 grams diclofenac potassium 50 mg tablet 50 mg PO TID PRN Pain (Scale Score 02/26/24 4-6) #30 tabs levofloxacin 500 mg tablet 500 mg PO DAILY #10 tabs 03/17/24 Allergies Allergy/AdvReac Type Severity Reaction Status Date / Time hydrocodone [From Vicodin] AdvReac Mild Nausea Verified 03/17/24 14:49 Review of Systems Review of Systems Narrative: as per HPI Patient History Medical History Chronic wrist pain History of osteomyelitis Callus of foot History of bladder stone Chronic pain of left wrist Hydrocephalus Neurogenic bladder Wheelchair dependent Bladder calculi Gross hematuria Callus Incontinence of urine Hypertension Spina bifida Sacral decubitus ulcer Spina bifida Surgical History History of left below knee amputation History of orthopedic surgery (06/16/22) S/P [employer] sh[employer] Family History Mother Hypertension UTI (urinary tract infection) Father No pertinent past medical history Social History marital status: unmarried,single household members: family occupational status: employed Smoking Status: Never smoker alcohol intake: current substance use type: marijuana caffeine: No Type(s) of exercise: decline to answer Smoking Status: Never smoker alcohol intake frequency: holidays/special occasions only Substance Use Type: marijuana Exam Narrative Exam Narrative: GENERAL: Well-developed patient, in mild distress. HEAD: Atraumatic. Normocephalic. EYES: Pupils equal round and reactive. Extraocular motions intact. No scleral icterus. No injection or drainage. ENT: Nose without bleeding, purulent drainage. Throat without erythema, tonsillar hypertrophy or exudate. Airway patent. NECK: Trachea midline. Non tender CARDIOVASCULAR: Regular rate and rhythm without murmurs, gallops, or rubs. RESPIRATORY: Clear to auscultation. Breath sounds equal bilaterally. No wheezes, rales, or rhonchi. GASTROINTESTINAL: Abdomen soft, non-tender, nondistended. EXTREMITIES: No edema or joint tenderness. Left BKA prosthetic removed, stump site without dehiscence or redness or warmth or discharge, no tenderness. Right lateralfoot bandage in place from wound clinic, no surrounding redness or swelling or warmth BACK: Nontender without deformity or crepitance. No flank tenderness. NEURO: AOx3. SKIN: No rash or erythema of visible areas Initial Vital Signs Initial Vital Signs: Vital Signs Temperature 98.5 F 03/17/24 13:24 Pulse Rate 96 H 03/17/24 13:24 Respiratory Rate 18 03/17/24 13:24 Blood Pressure 158/95 H 03/17/24 13:24 Pulse Oximetry 96 03/17/24 13:24 Oxygen Delivery Method Room Air 03/17/24 13:24 Course Orders Ordered: ED Orders 03/17/24 13:15 Complete Blood Count AUTO DIFF Stat Comprehensive Metabolic Panel Stat Lactate (Lactic Acid) Stat Lipase Stat PTT Partial Thromboplastin Florentino Stat Procalcitonin Stat Prothrombin Time INR Stat 03/17/24 13:29 XR chest 1V Stat RT Consult Eval and Treat NOW 03/17/24 13:55 Blood Culture Stat 03/17/24 14:15 Urine Culture Stat Urine Microscopic Stat 03/17/24 17:02 CT chest abd pel w con Stat 03/17/24 18:14 Respiratory Panel (Film Array) Stat Discontinued Medications Hydralazine HCl (Hydralazine 20 Mg/Ml Vial) 10 mg IV Q6HR PRN PRN Reason: Hypertension Last Admin: 03/17/24 17:41 Dose: 10 mg Documented By: Sodium Chloride (Normal Saline 0.9%) 1,000 mls @ 1,000 mls/hr IV BOLUS ONE Stop: 03/17/24 14:28 Last Infusion: 03/17/24 15:28 Dose: Infused Documented By: Admin: 03/17/24 13:50 Dose: 1,000 mls/hr Documented By: ES Sodium Chloride (Normal Saline 0.9%) 1,000 mls @ 1,000 mls/hr IV BOLUS ONE Stop: 03/17/24 18:00 Last Infusion: 03/17/24 19:17 Dose: Infused Documented By: Admin: 03/17/24 17:25 Dose: 1,000 mls/hr Documented By: ABRIL Levofloxacin (Levofloxacin 250 Mg Tablet) 500 mg PO NOW ONE Stop: 03/17/24 19:08 Last Admin: 03/17/24 19:16 Dose: 500 mg Documented By: Ondansetron HCl (Ondansetron 4 Mg/2 Ml Inj) 4 mg IV NOW PRN PRN Reason: Nausea And Vomiting Last Admin: 03/17/24 13:50 Dose: 4 mg Documented By: ES Ondansetron HCl (Ondansetron 4 Mg Odt) 4 mg SL NOW PRN PRN Reason: Nausea And Vomiting Ondansetron HCl (Ondansetron 4 Mg/2 Ml Inj) 4 mg IV NOW ONE Stop: 03/17/24 16:59 Last Admin: 03/17/24 17:25 Dose: 4 mg Documented By: ABRIL Tramadol HCl (Tramadol 50 Mg Prepack) 1 bottle MISC DIRECTED ONE Stop: 03/17/24 19:12 Last Admin: 03/17/24 19:16 Dose: 1 bottle Documented By: Vital Signs Vital signs: Vital Signs - 8 hr 03/17/24 14:21 03/17/24 14:22 03/17/24 14:22 Pulse Rate 86 86 Respiratory Rate 13 14 Blood Pressure 150/95 H Pulse Oximetry 98 98 Oxygen Delivery Method 03/17/24 14:30 03/17/24 14:30 03/17/24 15:00 Pulse Rate 84 82 Respiratory Rate 19 19 Blood Pressure 152/92 H Pulse Oximetry 97 99 Oxygen Delivery Method Room Air 03/17/24 15:00 03/17/24 15:30 03/17/24 15:30 Pulse Rate 89 Respiratory Rate 22 Blood Pressure 160/92 H 153/89 H Pulse Oximetry 97 Oxygen Delivery Method 03/17/24 16:00 03/17/24 16:00 03/17/24 16:30 Pulse Rate 89 94 H Respiratory Rate 21 24 Blood Pressure 160/95 H Pulse Oximetry 98 98 Oxygen Delivery Method Room Air 03/17/24 16:30 03/17/24 17:00 03/17/24 17:00 Pulse Rate 90 Respiratory Rate 19 Blood Pressure 158/103 H 160/99 H Pulse Oximetry 97 Oxygen Delivery Method 03/17/24 17:20 03/17/24 17:20 03/17/24 17:24 Pulse Rate 93 H 99 H Respiratory Rate 20 Blood Pressure 198/108 H Pulse Oximetry 97 97 Oxygen Delivery Method 03/17/24 17:24 03/17/24 17:30 03/17/24 17:31 Pulse Rate 93 H 93 H Respiratory Rate 15 18 Blood Pressure 196/100 H Pulse Oximetry 95 94 Oxygen Delivery Method 03/17/24 17:31 03/17/24 17:48 03/17/24 17:48 Pulse Rate 95 H Respiratory Rate Blood Pressure 233/95 H 160/90 H Pulse Oximetry 97 Oxygen Delivery Method 03/17/24 18:00 03/17/24 18:00 03/17/24 18:11 Pulse Rate 95 H 89 Respiratory Rate 20 Blood Pressure 158/83 H 152/87 H Pulse Oximetry 97 Oxygen Delivery Method 03/17/24 18:30 03/17/24 18:30 03/17/24 19:00 Pulse Rate 95 H 98 H Respiratory Rate 21 Blood Pressure 152/87 H Pulse Oximetry 97 97 Oxygen Delivery Method 03/17/24 19:00 Pulse Rate Respiratory Rate Blood Pressure 141/85 H Pulse Oximetry Oxygen Delivery Method MDM - Nausea/Vomiting/Diarrhea Lab Data Attestation: I reviewed the patient's lab results. 03/17/24 13:15 03/17/24 13:15 Labs: Lab Results 03/17/24 03/17/24 03/17/24 Range/Units 13:15 14:15 18:14 WBC 8.0 (4.5-11.0) X10^3/uL RBC 5.10 (4.5-5.9) X10^6/uL Hgb 15.8 (13.5-17.5) g/dL Hct 45.7 (41-53) % MCV 89.6 (80-100) fL MCH 30.9 (26-34) PG MCHC 34.5 (30-36) % RDW 13.0 (11.6-14.8) % Plt Count 201 (150-400) X10^3/uL Neut % (Auto) 86.1 H (50-75) % Lymph % (Auto) 6.8 L (25-40) % [place] % (Auto) 6.1 (3-14) % Eos % (Auto) 0.7 L (2-4) % Baso % (Auto) 0.3 (0-2) % Neut # (Auto) 6900 (6689-1586) /uL Lymph # (Auto) 500 L (9906-1417) /uL [place] # (Auto) 500 (0-900) /uL Eos # (Auto) 100 (0-450) /uL Baso # (Auto) 0 (0-100) /uL PT 11.9 (9.4-12.5) SECONDS INR 1.0 (0.9-1.3) APTT 33 (25.1-36.5) SECONDS Sodium 136 L (137-145) mmol/L Potassium 3.8 (3.4-5.1) mmol/L Chloride 102 (98-107) mmol/L Carbon Dioxide 25 (22-32) mmol/L BUN 9 (9-20) mg/dL Creatinine 0.84 (0.66-1.25) mg/dL Estimated GFR > 60 (>60) mL/min BUN/Creatinine Ratio 10.7 (6-22) Glucose 118 H (70-100) mg/dL Lactate 1.4 (0.7-2.1) mmol/L Calcium 9.3 (8.4-10.2) mg/dL Total Bilirubin 1.2 (0.2-1.3) mg/dL AST 33 (17-59) IU/L ALT 75 H (<50) IU/L Alkaline Phosphatase 68 (38-126) U/L Total Protein 8.2 (6.3-8.2) g/dL Albumin 4.8 (3.5-5.0) g/dL Globulin 3.4 (1.7-4.1) g/dL Albumin/Globulin Ratio 1.4 (1.0-2.8) Lipase 142 (23-300) U/L Procalcitonin 1.51 H (<0.5) ng/mL Urine RBC 1-5/hpf D (0-5/HPF) Urine WBC 1-5/hpf (0-5/HPF) Ur Squamous Epith Cells 1-5 /hpf (0-5/HPF) Urine Bacteria None seen (None) Ur Culture Indicated? Specimen cultured Vol Urine Centrifuged 10ml (spun) Chlamy pneumoniae PCR Not detected (Not Detect) Adenovirus (PCR) Not detected (Not Detect) B.parapertussis DNA PCR Not detected (Not Detecte) Coronavirus OC43 (PCR) Not detected (Not Detect) Coronavirus HKU1 (PCR) Not detected (Not Detect) Coronavirus 229E (PCR) Not detected (Not Detect) SARS-CoV-2 (PCR) Not detected (Not Detecte) Coronavirus NL63 (PCR) Not detected (Not Detect) Human Metapneumovir PCR Not detected (Not Detect) Influenza Type A (PCR) Not detected (Not Detect) Influenza Type B (PCR) Not detected (Not Detect) M. pneumoniae (PCR) Not detected (Not Detect) Parainfluenza 1 (PCR) Not detected (Not Detect) Parainfluenza 2 (PCR) Not detected (Not Detect) Parainfluenza 3 (PCR) Not detected (Not Detect) Parainfluenza 4 (PCR) Not detected (Not Detect) RSV (PCR) Not detected (Not Detect) Entero/Rhino (PCR) Not detected (Not Detect) Urine Dip Bedside Urine Glucose Negative Bedside Urine Bilirubin - Negative Bedside Urine Ketone +/- 5 Urine Specific [place] 1.010 Bedside Urine Occult Blood + Bedside Urine pH 9.0 Bedside Urine Protein + 30 Bedside Urine Urobilinogen - Negative Bedside Urine Nitrite - Negative Bedside Urine Leukocytes +/- 15 Esterase Imaging Data Chest x-ray: Radiologist's Impression: [address] [address] XRay Report Signed Patient: Amaury Robertson MR#: [id number] : 1980 Acct:[id number] Age/Sex: 43 / M Date of Service: 03/17/24 Loc: ED Accession Number: [id number] Procedure: XR chest 1V Ordering Provider: Guerrero Trinidad MD PROCEDURE: XR CHEST 1V INDICATIONS: suspected sepsis TECHNIQUE: One view of the chest was acquired. COMPARISON: [facility], , XR CHEST FOR PICC 1V, 06/17/2022, 16:41. FINDINGS: Surgical changes and devices: Right-sided ventriculoperitoneal shunt appears intact along its visualized course. Lungs and pleura: Lungs are clear. No pleural effusions or pneumothorax. Mediastinum: Mediastinal contours appear normal. Heart size is normal. Bones and chest wall: No suspicious bony lesions. Overlying soft tissues appear unremarkable. IMPRESSION: No acute cardiopulmonary abnormality is seen. No focal consolidation. Dictated by: Tigre Baxter M.D. on 03/17/2024 at 14:48 Approved by: Tigre Baxter M.D. on 03/17/2024 at 14:51 CT scan - abdomen/pelvis: Radiologist's Impression: [address] [address] [address] Scan Report Signed Patient: Amaury Robertson MR#: [id number] : 1980 Acct:[id number] Age/Sex: 43 / M Date of Service: 03/17/24 Loc: ED Accession Number: [id number] Procedure: CT chest abd pel w con Ordering Provider: Guerrero Trinidad MD PROCEDURE: CT CHEST ABD PEL W CON INDICATIONS: N/V, LUQ LLQ abd pain TECHNIQUE: After the administration of intravenous contrast, 5 mm thick sections acquired from the lung apices to the symphysis. 5 mm coronal and sagittal reformats were performed, with additional 7 mm MIP reformats through the lungs. For radiation dose reduction, the following was used: automated exposure control, adjustment of mA and/or kV according to patient size. COMPARISON: None. FINDINGS: Image quality: Diagnostic CHEST: Lower Neck: No enlarged lymph nodes. Thyroid: No thyroid nodules which require sonographic follow up, per consensus guidelines. Axillae: No enlarged lymph nodes. Chest Wall: Unremarkable. Lungs and Pleura: No pneumothorax or pleural effusions. No consolidation. Bibasilar linear atelectasis. Scattered pulmonary solid nodules, for example in the left lower lobe measuring 5 millimeters (5/154, MIP image 80). Heart: Heart size is normal. No pericardial effusion. Thoracic Vessels: The aorta and pulmonary arteries demonstrate normal size. Mediastinum and Ruth: No enlarged lymph nodes. Esophagus: No wall thickening. No hiatal hernia. ABDOMEN: Liver: No solid mass. Hepatic steatosis Gallbladder: No radiopaque gallstones or wall thickening. Biliary ducts: No biliary dilation. Pancreas: No ductal dilation. Spleen: Size is within normal limits. Adrenal Glands: No adrenal nodules. Kidneys and Ureters: No hydronephrosis. No solid mass. No complex renal cystic lesion which requires follow up. Stomach and Bowel: Normal colonic caliber, without significant wall thickening. Normal caliber appendix in the right lower quadrant. Peritoneum: There is a shunt catheter seen along the right anterior subcutaneous tissues of the chest and abdomen and entering the peritoneal cavity in the right lower quadrant and terminating in the midline pelvis. There is trace amount of fluid in the pelvis. No free air. Ventral Wall: No significant ventral hernia. Abdominal Nodes: No retroperitoneal or mesenteric adenopathy by size criteria. Vessels: Aorta and inferior vena cava are normal in size. PELVIS: Pelvic Organs: Unremarkable. Bladder: No bladder wall thickening, accounting for underdistention. Pelvic Nodes: No enlarged lymph nodes. Miscellaneous: No inguinal hernias are seen. Bones: No aggressive osseous abnormality. Degenerative change of the spine without acute osseous abnormality. Bilateral L5 pars defects. IMPRESSION: Hepatic steatosis. Scattered solid pulmonary nodules measuring up to 5-6 mm in the left lower lobe. If patient is high risk for lung malignancy, recommend follow-up CT chest in 12 months to demonstrate stability per Fleischner society guidelines. No acute findings in the abdomen or pelvis to explain patient's symptoms. Approved by: Evi Stewart M.D.,Ph.D. on 03/17/2024 at 18:10 MDM Narrative Medical decision making narrative: Recent cough, naause, vomiting diarrhea. Left upper mid abdominal pain, consider UTI/stone. CT abdomen pelvis imaging without acute abdominopelvis changes. UA possible infection, recent productive cough, lung nodules left base. PO Levaquin first dose, Rx for ten day course. Follow-up with PCP in two days to [facility] symptoms and urine culture results. Discharged home, stable, improved. Discharge Plan Departure Patient Disposition: Home Clinical Impression: Abdominal pain, Pulmonary nodule, left, Urinary tract infection, Upper respiratory infection Activity Restrictions/Additional Instructions: Recent productive cough, left upper quadrant abdominal discomfort, recent resolved diarrhea, seems most consistent with some sort of viral syndrome. CT abdomen and pelvis imaging showed presence of left lower lung nodules, concerning for underlying neoplasia/cancer, needs further workup as an outpatient. There was no definite acute intra-abdominal findings however on the imaging study. Urinalysis was suspicious enough to send urine culture. Oral Levaquin antibiotic started in case there is a urine infection, and also treats for pulmonary lung infections if relevant to your discomfort. Recheck symptoms with your regular provider in the next couple of days. Return to this/nearest emergency department for any change worsening symptoms or any concerns prior Prescriptions: New levofloxacin 500 mg tablet 500 mg PO DAILY Qty: 10 0RF No Action (DME) Prevail Male Guard See Rx Instructions .Route .MEDSUPPLY Qty: 100 12RF Rx Instructions: As directed (DME) Male Incontinence Briefs Medium See Rx Instructions .Route .MEDSUPPLY Qty: 100 12RF Rx Instructions: As directed diclofenac potassium 50 mg tablet 50 mg PO TID PRN (Reason: Pain (Scale Score 4-6)) Qty: 30 1RF Rx Instructions: TAKE 1 TABLET BY MOUTH THREE TIMES DAILY NEEDED FOR PAIN triamcinolone acetonide 0.5 % cream 1 applic topical BID PRN (Reason: Psoriasis) Qty: 15 1RF losartan 50 mg tablet 50 mg PO DAILY Qty: 90 3RF Rx Instructions: take in the AM amlodipine 2.5 mg tablet 2.5 mg PO BEDTIME Qty: 90 3RF Rx Instructions: take dinner/bedtime Referrals: Yair Garcia DO [Primary Care Provider] - Stand Alone Forms: Patient Portal/API
--- NOTE | 2024-03-17 17:02 | DI.CT.S_ITS ---
PROCEDURE: CT CHEST ABD PEL W CON INDICATIONS: N/V, LUQ LLQ abd pain TECHNIQUE: After the administration of intravenous contrast, 5 mm thick sections acquired from the lung apices to the symphysis. 5 mm coronal and sagittal reformats were performed, with additional 7 mm MIP reformats through the lungs. For radiation dose reduction, the following was used: automated exposure control, adjustment of mA and/or kV according to patient size. COMPARISON: None. FINDINGS: Image quality: Diagnostic CHEST: Lower Neck: No enlarged lymph nodes. Thyroid: No thyroid nodules which require sonographic follow up, per consensus guidelines. Axillae: No enlarged lymph nodes. Chest Wall: Unremarkable. Lungs and Pleura: No pneumothorax or pleural effusions. No consolidation. Bibasilar linear atelectasis. Scattered pulmonary solid nodules, for example in the left lower lobe measuring 5 millimeters (5/154, MIP image 80). Heart: Heart size is normal. No pericardial effusion. Thoracic Vessels: The aorta and pulmonary arteries demonstrate normal size. Mediastinum and Ruth: No enlarged lymph nodes. Esophagus: No wall thickening. No hiatal hernia. ABDOMEN: Liver: No solid mass. Hepatic steatosis Gallbladder: No radiopaque gallstones or wall thickening. Biliary ducts: No biliary dilation. Pancreas: No ductal dilation. Spleen: Size is within normal limits. Adrenal Glands: No adrenal nodules. Kidneys and Ureters: No hydronephrosis. No solid mass. No complex renal cystic lesion which requires follow up. Stomach and Bowel: Normal colonic caliber, without significant wall thickening. Normal caliber appendix in the right lower quadrant. Peritoneum: There is a shunt catheter seen along the right anterior subcutaneous tissues of the chest and abdomen and entering the peritoneal cavity in the right lower quadrant and terminating in the midline pelvis. There is trace amount of fluid in the pelvis. No free air. Ventral Wall: No significant ventral hernia. Abdominal Nodes: No retroperitoneal or mesenteric adenopathy by size criteria. Vessels: Aorta and inferior vena cava are normal in size. PELVIS: Pelvic Organs: Unremarkable. Bladder: No bladder wall thickening, accounting for underdistention. Pelvic Nodes: No enlarged lymph nodes. Miscellaneous: No inguinal hernias are seen. Bones: No aggressive osseous abnormality. Degenerative change of the spine without acute osseous abnormality. Bilateral L5 pars defects. IMPRESSION: Hepatic steatosis. Scattered solid pulmonary nodules measuring up to 5-6 mm in the left lower lobe. If patient is high risk for lung malignancy, recommend follow-up CT chest in 12 months to demonstrate stability per Fleischner society guidelines. No acute findings in the abdomen or pelvis to explain patient's symptoms. Approved by: Evi Stewart M.D.,Ph.D. on 03/17/2024 at 18:10
[2024-03-17] MEDS: HYDRALAZINE 20 MG/ML VIAL 10 MG IV (17:41)
[2024-03-17] MEDS: TRAMADOL 50 MG PREPACK 1 BOTTLE MISC (19:16)
[2024-03-17] MEDS: levoFLOXacin 250 MG TABLET 500 MG PO (19:16)
[2024-03-17 19:21] LABS: Adenovirus Not Detected (Not Detect); B. parapertussis Not Detected (Not Detecte); Bordetella pertussis Not Detected (Not Detect); Chlamydophila pneumoniae Not Detected (Not Detect); Coronavirus 229E Not Detected (Not Detect); Coronavirus HKU1 Not Detected (Not Detect); Coronavirus NL 63 Not Detected (Not Detect); Coronavirus OC43 Not Detected (Not Detect); Human Metapneumovirus Not Detected (Not Detect); Human Rhinovirus/Enterovirus Not Detected (Not Detect); Influenza A Not Detected (Not Detect); Influenza B Not Detected (Not Detect); Mycoplasma pneumoniae Not Detected (Not Detect); Parainfluenza Virus 1 Not Detected (Not Detect); Parainfluenza Virus 2 Not Detected (Not Detect); Parainfluenza Virus 3 Not Detected (Not Detect); Parainfluenza Virus 4 Not Detected (Not Detect); Respiratory Syncytial Virus Not Detected (Not Detect); SARS- CoV-2 Not Detected (Not Detecte)
== END 2024-03-17 19:18 | disposition home or self-care (01) ==
PROVIDERS: Emergency Provider Emergency Medicine; Family Provider Family Medicine; PCP Family Medicine
DX: J06.9 Acute upper respiratory infection, unspecified (principal); R10.12 Left upper quadrant pain; R91.1 Solitary pulmonary nodule; N39.0 Urinary tract infection, site not specified
CPT/HCPCS: 36415; 71045; 71260; 74177; 80053; 81003; 81015; 83605; 83690; 84145; 85025; 85610; 85730; 87040; 87086; 87633; 96374; 96375; 96376; 99284; J0360; J2405; Q9967

== ENCOUNTER → 2024-03-25 10:23 | Outpatient (CLI) | payer MEDICARE, MEDICAID, SELFPAY ==
[2022-11-24 15:35] VITALS: BMI 28.8
--- NOTE | 2024-03-25 10:37 | DI.RAD.S_ITS ---
PROCEDURE: XR FOOT RT 2V INDICATIONS: EVAL FOR OSTEO TECHNIQUE: 3 views of the foot were acquired. COMPARISON: [facility], CR, XR FOOT RT MIN 3V, 06/11/2023, 13:50. FINDINGS: Bones: Diffuse midfoot. Prior 1st phalanx amputation. No bony erosion. Soft tissues: No tibiotalar joint effusion. Achilles tendon appears normal. IMPRESSION: No bony erosion. Although no bony erosions are identified, plain film radiography is relatively insensitive in the acute phases of osteomyelitis and may not demonstrate radiographic changes for 15 days. If acute osteomyelitis is of clinical concern, nuclear medicine regional bone scan or MRI is recommended. Dictated by: Victor M Mead M.D. on 03/25/2024 at 12:00 Approved by: Victor M Mead M.D. on 03/25/2024 at 12:01
== END ==
PROVIDERS: Family Provider Family Medicine; PCP Family Medicine; Referring Provider Surgery; Visit Provider Surgery
DX: L97.512 Non-pressure chronic ulcer of other part of right foot with fat layer exposed (principal); Z89.411 Acquired absence of right great toe; G62.9 Polyneuropathy, unspecified; M21.6X1 Other acquired deformities of right foot; Q05.9 Spina bifida, unspecified; I10 Essential (primary) hypertension; Z89.512 Acquired absence of left leg below knee
CPT/HCPCS: 11042; 73620

== ENCOUNTER → 2024-03-25 12:01 | Outpatient (CLI) | payer MEDICARE, MEDICAID, SELFPAY ==
[2022-11-24 15:35] VITALS: BMI 28.8
== END ==
PROVIDERS: Family Provider Family Medicine; PCP Family Medicine; Referring Provider Family Medicine; Visit Provider Surgery
DX: L97.512 Non-pressure chronic ulcer of other part of right foot with fat layer exposed (principal); G62.9 Polyneuropathy, unspecified; M21.6X1 Other acquired deformities of right foot; Q05.9 Spina bifida, unspecified; I10 Essential (primary) hypertension; Z89.512 Acquired absence of left leg below knee
CPT/HCPCS: 11042

== ENCOUNTER → 2024-04-10 12:02 | Outpatient (CLI) | payer MEDICARE, MEDICAID, SELFPAY ==
[2022-11-24 15:35] VITALS: BMI 28.8
--- NOTE | 2024-04-10 12:04 | DI.CT.S_ITS ---
PROCEDURE: CT HEAD/BRAIN WO CON INDICATIONS: CP shunt, Hydrocephalus TECHNIQUE: Noncontrast 4.5 mm thick angled axial sections acquired from the foramen magnum to the vertex, with coronal and sagittal reformats. For radiation dose reduction, the following was used: automated exposure control, adjustment of mA and/or kV according to patient size. COMPARISON: None. FINDINGS: Image quality: Diagnostic. CSF spaces: Basal cisterns are patent. No extra-axial fluid collections. Right parietal approach ventriculostomy catheter with tip terminating in the left lateral ventricle. The ventricles are mildly enlarged. The septum pellucidum appears partially absent. Brain: No midline shift. No intracranial masses or hemorrhage. Javed-white matter interface is normal. Skull and face: Calvarium and visualized facial bones are intact, without suspicious lesions. Sinuses: Visualized sinuses and mastoids are clear. IMPRESSION: Right parietal approach ventriculostomy catheter. The ventricles appear mildly enlarged. No evidence of transependymal flow of CSF. Recommend correlation to prior imaging. The septum pellucidum appears partially absent versus not well visualized by CT. Recommend clinical correlation and comparison to prior imaging. Dictated by: Ernesto Nguyễn M.D. on 04/10/2024 at 17:12 Approved by: Ernesto Nguyễn M.D. on 04/10/2024 at 17:14
== END ==
PROVIDERS: Family Provider Family Medicine; PCP Family Medicine; Referring Provider Family Medicine; Visit Provider Family Medicine
DX: G91.1 Obstructive hydrocephalus (principal); Z98.2 Presence of cerebrospinal fluid drainage device
CPT/HCPCS: 70450

== ENCOUNTER → 2024-04-15 13:21 | Outpatient (CLI) | payer MEDICARE, MEDICAID, SELFPAY ==
[2022-11-24 15:35] VITALS: BMI 28.8
== END ==
LOC: WC 13:22
PROVIDERS: Family Provider Family Medicine; PCP Family Medicine; Referring Provider Family Medicine; Visit Provider Surgery
DX: L97.512 Non-pressure chronic ulcer of other part of right foot with fat layer exposed (principal); G62.9 Polyneuropathy, unspecified; L84 Corns and callosities; M21.6X1 Other acquired deformities of right foot; I10 Essential (primary) hypertension; Z89.512 Acquired absence of left leg below knee
CPT/HCPCS: 11042; 97597; 99213

== ENCOUNTER → 2024-04-22 10:48 | Outpatient (CLI) | payer MEDICARE, MEDICAID, SELFPAY ==
[2022-11-24 15:35] VITALS: BMI 28.8
== END ==
PROVIDERS: Family Provider Family Medicine; PCP Family Medicine; Referring Provider Family Medicine; Visit Provider Surgery
DX: L97.512 Non-pressure chronic ulcer of other part of right foot with fat layer exposed (principal); G62.9 Polyneuropathy, unspecified; M21.6X1 Other acquired deformities of right foot; Q05.9 Spina bifida, unspecified; Z89.512 Acquired absence of left leg below knee
CPT/HCPCS: 11042

== ENCOUNTER → 2024-05-01 10:57 | Outpatient (CLI) | payer MEDICARE, MEDICAID, SELFPAY ==
[2022-11-24 15:35] VITALS: BMI 28.8
== END ==
PROVIDERS: Family Provider Family Medicine; PCP Family Medicine; Referring Provider Family Medicine; Visit Provider Surgery
DX: L97.512 Non-pressure chronic ulcer of other part of right foot with fat layer exposed (principal); G62.9 Polyneuropathy, unspecified; M21.6X1 Other acquired deformities of right foot
CPT/HCPCS: 11042

== ENCOUNTER → 2024-05-15 09:41 | Outpatient (CLI) | payer MEDICARE, MEDICAID, SELFPAY ==
[2022-11-24 15:35] VITALS: BMI 28.8
== END ==
LOC: WC 09:42
PROVIDERS: Family Provider Family Medicine; PCP Family Medicine; Referring Provider Family Medicine; Visit Provider Nurse Practitioner Family
DX: L97.512 Non-pressure chronic ulcer of other part of right foot with fat layer exposed (principal); G62.9 Polyneuropathy, unspecified; M21.6X1 Other acquired deformities of right foot; Q05.9 Spina bifida, unspecified; R60.0 Localized edema; L53.9 Erythematous condition, unspecified; R23.4 Changes in skin texture
CPT/HCPCS: 11042; 97597; 99213

== ENCOUNTER → 2024-05-26 13:10 | Outpatient (CLI) | payer MEDICARE, MEDICAID, SELFPAY ==
[2022-11-24 15:35] VITALS: BMI 28.8
== END ==
LOC: WC 13:13
PROVIDERS: Family Provider Family Medicine; PCP Family Medicine; Referring Provider Family Medicine; Visit Provider Surgery
DX: L97.512 Non-pressure chronic ulcer of other part of right foot with fat layer exposed (principal); R60.0 Localized edema; L53.9 Erythematous condition, unspecified; G62.9 Polyneuropathy, unspecified; M21.6X1 Other acquired deformities of right foot
CPT/HCPCS: 11042

== ENCOUNTER → 2024-06-02 13:52 | Outpatient (CLI) | payer MEDICARE, MEDICAID, SELFPAY ==
[2022-11-24 15:35] VITALS: BMI 28.8
== END ==
LOC: WC 13:53
PROVIDERS: Family Provider Family Medicine; PCP Family Medicine; Referring Provider Family Medicine; Visit Provider Surgery
DX: L97.512 Non-pressure chronic ulcer of other part of right foot with fat layer exposed (principal); G62.9 Polyneuropathy, unspecified; R23.4 Changes in skin texture; R20.8 Other disturbances of skin sensation; L53.8 Other specified erythematous conditions
CPT/HCPCS: 11042

== ENCOUNTER → 2024-06-12 10:23 | Outpatient (CLI) | payer MEDICARE, MEDICAID, SELFPAY ==
[2022-11-24 15:35] VITALS: BMI 28.8
== END ==
PROVIDERS: Family Provider Family Medicine; PCP Family Medicine; Referring Provider Family Medicine; Visit Provider Surgery
DX: L97.512 Non-pressure chronic ulcer of other part of right foot with fat layer exposed (principal); G62.9 Polyneuropathy, unspecified; R60.0 Localized edema; L53.9 Erythematous condition, unspecified; Q05.9 Spina bifida, unspecified; M21.6X1 Other acquired deformities of right foot; I10 Essential (primary) hypertension
CPT/HCPCS: 11042; 99213

== ENCOUNTER → 2024-06-19 10:57 | Outpatient (CLI) | payer MEDICARE, MEDICAID, SELFPAY ==
[2022-11-24 15:35] VITALS: BMI 28.8
== END ==
PROVIDERS: Family Provider Family Medicine; PCP Family Medicine; Referring Provider Family Medicine; Visit Provider Surgery
DX: L97.512 Non-pressure chronic ulcer of other part of right foot with fat layer exposed (principal); G62.9 Polyneuropathy, unspecified; R60.0 Localized edema; L53.9 Erythematous condition, unspecified; M21.6X1 Other acquired deformities of right foot; Q05.9 Spina bifida, unspecified
CPT/HCPCS: 11042; 99213

== ENCOUNTER → 2024-06-19 11:39 | Outpatient (CLI) | payer MEDICARE, MEDICAID, SELFPAY ==
[2022-11-24 15:35] VITALS: BMI 28.8
--- NOTE | 2024-06-19 11:40 | DI.RAD.S_ITS ---
PROCEDURE: XR FOOT RT MIN 3V INDICATIONS: non-healing ulcer on right dorsal foot TECHNIQUE: 3 views of the foot were acquired. COMPARISON: [facility], CR, XR FOOT RT 2V, 03/25/2024, 10:41. [facility], CR, XR FOOT RT MIN 3V, 06/11/2023, 13:50. FINDINGS: Diffuse osseous demineralization. Status post prior partial amputation of the 1st digit to the level of the proximal phalangeal head. Plantar subluxation of the 2nd digit at the PIP joint. Developing osteopenia and erosions at the medial aspect of the 1st metatarsal head. No radiographic evidence of subcutaneous emphysema. 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 IMPRESSION: Radiographic signs of osteomyelitis at the 1st metatarsal head. Dictated by: Tarik Fuentes M.D. on 06/19/2024 at 17:41 Approved by: Tarik Fuentes M.D. on 06/19/2024 at 17:45
== END ==
PROVIDERS: Family Provider Family Medicine; PCP Family Medicine; Referring Provider Surgery; Visit Provider Surgery
DX: L97.519 Non-pressure chronic ulcer of other part of right foot with unspecified severity (principal); Z89.411 Acquired absence of right great toe; S93.134A Subluxation of interphalangeal joint of right lesser toe(s), initial encounter; R93.6 Abnormal findings on diagnostic imaging of limbs; X58.XXXA Exposure to other specified factors, initial encounter
CPT/HCPCS: 73630

== ENCOUNTER → 2024-06-24 10:07 | Outpatient (CLI) | payer MEDICARE, MEDICAID, SELFPAY ==
[2022-11-24 15:35] VITALS: BMI 28.8
== END ==
LOC: WC 10:08
PROVIDERS: Family Provider Family Medicine; PCP Family Medicine; Referring Provider Family Medicine; Visit Provider Surgery
DX: L97.512 Non-pressure chronic ulcer of other part of right foot with fat layer exposed (principal); G62.9 Polyneuropathy, unspecified; R60.0 Localized edema; M21.6X1 Other acquired deformities of right foot; Q05.9 Spina bifida, unspecified
CPT/HCPCS: 11042; 87070; 87077; 87147; 87186; 87205; 99213

== ENCOUNTER → 2024-07-02 15:54 | Outpatient (CLI) | payer MEDICARE, MEDICAID, SELFPAY ==
[2022-11-24 15:35] VITALS: BMI 28.8
--- NOTE | 2024-07-02 15:55 | DI.NM.S_ITS ---
PROCEDURE: NM BONE 3 PHASE RADIOPHARMACEUTICAL: 21.4 mCi Tc-99m MDP IV. INDICATIONS: eval for osteo, ulcer on right foot TECHNIQUE: Multiple bone scintigrams were obtained after intravenous injection of Tc-99m MDP, including flow, blood pool, and delayed images centered to the region of interest. COMPARISON: [facility], CR, XR FOOT RT MIN 3V, 06/19/2024, 10:50. [facility], CT, CT HEAD/BRAIN WO CON, 04/10/2024, 12:12. FINDINGS: There is increased flow and blood pool within the proximal aspect of the 1st metatarsal. It is noted in comparison to recent x-ray, there has been amputation distal to the proximal aspect of the 1st proximal phalanx. Increased uptake is also present on delayed images. IMPRESSION: Increased flow, pool and uptake on delayed images overlying the 1st digit. This appears to correspond to the 1st metatarsal head which demonstrates osseous abnormality on recent x-ray. Findings are most suggestive of osteomyelitis. Dictated by: Leela Monroe M.D. on 07/03/2024 at 16:22 Approved by: Leela Monroe M.D. on 07/03/2024 at 16:26
== END ==
LOC: NUCM 15:54
PROVIDERS: Family Provider Family Medicine; PCP Family Medicine; Referring Provider Surgery; Visit Provider Surgery
DX: L97.512 Non-pressure chronic ulcer of other part of right foot with fat layer exposed (principal); Z89.411 Acquired absence of right great toe
CPT/HCPCS: 78315; A9503

== ENCOUNTER → 2024-07-04 09:58 | Outpatient (CLI) | payer MEDICARE, MEDICAID, SELFPAY ==
[2022-11-24 15:35] VITALS: BMI 28.8
== END ==
PROVIDERS: Family Provider Family Medicine; PCP Family Medicine; Referring Provider Family Medicine; Visit Provider Physician Assistant
DX: L97.812 Non-pressure chronic ulcer of other part of right lower leg with fat layer exposed (principal); G62.9 Polyneuropathy, unspecified; R60.0 Localized edema; L84 Corns and callosities; Q05.9 Spina bifida, unspecified
CPT/HCPCS: 97597; 99214

== ENCOUNTER → 2024-07-10 11:14 | Outpatient (CLI) | payer MEDICARE, MEDICAID, SELFPAY ==
[2022-11-24 15:35] VITALS: BMI 28.8
== END ==
PROVIDERS: Family Provider Family Medicine; PCP Family Medicine; Referring Provider Family Medicine; Visit Provider Surgery
DX: L97.512 Non-pressure chronic ulcer of other part of right foot with fat layer exposed (principal); G62.9 Polyneuropathy, unspecified; R60.0 Localized edema; L84 Corns and callosities; M21.6X1 Other acquired deformities of right foot; Q05.9 Spina bifida, unspecified; Z79.2 Long term (current) use of antibiotics
CPT/HCPCS: 11042; 99213

== ENCOUNTER → 2024-07-10 11:25 | Outpatient (CLI) | payer MEDICARE, MEDICAID, SELFPAY ==
[2022-11-24 15:35] VITALS: BMI 28.8
[2024-07-10 12:44] LABS: Add Manual Diff / Slide Review NO; Basophils Absolute Auto 100 /uL (0-100); Basophils Percent Auto 0.9 % (0-2); Eosinophils Absolute Auto 300 /uL (0-450); Eosinophils Percent Auto 5.1 % (2-4); Hematocrit 46.7 % (41-53); Lymphocytes Absolute Auto 1600 /uL (1100-4500); Lymphocytes Percent Auto 26.7 % (25-40); Mean Corpuscular HGB Conc 34.4 % (30-36); Mean Corpuscular Hemoglobin 31.3 PG (26-34); Monocytes Absolute Auto 400 /uL (0-900); Monocytes Percent Auto 7.3 % (3-14); Neutrophils Absolute Auto 3600 /uL (1500-7000); Platelet Count 259 X10^3/uL (150-400); Red Blood Cell Count 5.13 X10^6/uL (4.5-5.9); Red Cell Distribution Width 13.2 % (11.6-14.8); White Blood Cell Count 5.9 X10^3/uL (4.5-11.0)
[2024-07-10 12:59] LABS: Erythrocyte Sedimentation Rate 1 MM/HR (0-15)
[2024-07-10 13:29] LABS: Alanine Aminotransferase 108 IU/L (<50); Albumin 4.6 g/dL (3.5-5.0); Albumin Globulin Ratio 1.7 (1.0-2.8); Alkaline Phosphatase 56 U/L (38-126); Aspartate Aminotransferase 48 IU/L (17-59); BUN Creatinine Ratio 14.6 (6-22); Bilirubin Total 0.8 mg/dL (0.2-1.3); Blood Urea Nitrogen 12 mg/dL (9-20); C-Reactive Protein Quant < 0.5 mg/dL (<1.0); Calcium 9.8 mg/dL (8.4-10.2); Carbon Dioxide 24 mmol/L (22-32); Chloride 104 mmol/L (98-107); Estimated Glomerular Filt Rate > 60 mL/min (>60); Globulin 2.7 g/dL (1.7-4.1); Glucose 95 mg/dL (70-100); HEMOLYSIS < 15 (0-50); Potassium 4.4 mmol/L (3.4-5.1); Sodium 137 mmol/L (137-145); Total Protein 7.3 g/dL (6.3-8.2)
== END ==
PROVIDERS: Family Provider Family Medicine; PCP Family Medicine; Referring Provider Surgery; Visit Provider Surgery
DX: L97.512 Non-pressure chronic ulcer of other part of right foot with fat layer exposed (principal); G62.9 Polyneuropathy, unspecified; R60.0 Localized edema; L84 Corns and callosities; M21.6X1 Other acquired deformities of right foot; Q05.9 Spina bifida, unspecified; Z79.2 Long term (current) use of antibiotics
CPT/HCPCS: 11042; 36415; 80053; 85025; 85651; 86140

== ENCOUNTER → 2024-07-17 11:05 | Outpatient (CLI) | payer MEDICARE, MEDICAID, SELFPAY ==
[2022-11-24 15:35] VITALS: BMI 28.8
== END ==
PROVIDERS: Family Provider Family Medicine; PCP Family Medicine; Referring Provider Family Medicine; Visit Provider Surgery
DX: L97.512 Non-pressure chronic ulcer of other part of right foot with fat layer exposed (principal); L84 Corns and callosities; R60.0 Localized edema; M21.6X1 Other acquired deformities of right foot; I10 Essential (primary) hypertension; G62.9 Polyneuropathy, unspecified
CPT/HCPCS: 11042; 99213

== ENCOUNTER → 2024-07-25 13:42 | Outpatient (CLI) | payer MEDICARE, MEDICAID, SELFPAY ==
[2022-11-24 15:35] VITALS: BMI 28.8
== END ==
LOC: WC 13:43
PROVIDERS: Family Provider Family Medicine; PCP Family Medicine; Referring Provider Family Medicine; Visit Provider Physician Assistant
DX: L97.516 Non-pressure chronic ulcer of other part of right foot with bone involvement without evidence of necrosis (principal); G62.9 Polyneuropathy, unspecified; R60.0 Localized edema; Q05.9 Spina bifida, unspecified; I10 Essential (primary) hypertension
CPT/HCPCS: 11042; 99214

== ENCOUNTER → 2024-08-01 11:36 | Outpatient (CLI) | payer MEDICARE, MEDICAID, SELFPAY ==
[2022-11-24 15:35] VITALS: BMI 28.8
== END ==
LOC: WC 11:36
PROVIDERS: Family Provider Family Medicine; PCP Family Medicine; Referring Provider Family Medicine; Visit Provider Physician Assistant
DX: L97.512 Non-pressure chronic ulcer of other part of right foot with fat layer exposed (principal); G62.9 Polyneuropathy, unspecified; M21.6X1 Other acquired deformities of right foot; Q05.9 Spina bifida, unspecified; R60.0 Localized edema
CPT/HCPCS: 11042; 99212; 99215

== ENCOUNTER → 2024-08-02 11:48 | Outpatient (CLI) | payer MEDICARE, MEDICAID, SELFPAY ==
[2022-11-24 15:35] VITALS: BMI 28.8
[2024-08-02 12:53] LABS: Add Manual Diff / Slide Review NO; Basophils Absolute Auto 0 /uL (0-100); Basophils Percent Auto 0.5 % (0-2); Eosinophils Absolute Auto 300 /uL (0-450); Eosinophils Percent Auto 5.2 % (2-4); Hematocrit 45.8 % (41-53); Hemoglobin 15.7 g/dL (13.5-17.5); Lymphocytes Absolute Auto 1500 /uL (1100-4500); Lymphocytes Percent Auto 26.4 % (25-40); Mean Corpuscular HGB Conc 34.4 % (30-36); Mean Corpuscular Hemoglobin 31.1 PG (26-34); Mean Corpuscular Volume 90.4 fL (80-100); Monocytes Absolute Auto 400 /uL (0-900); Monocytes Percent Auto 7.5 % (3-14); Neutrophils Absolute Auto 3500 /uL (1500-7000); Neutrophils Percent Auto 60.4 % (50-75); Platelet Count 235 X10^3/uL (150-400); Red Blood Cell Count 5.07 X10^6/uL (4.5-5.9); Red Cell Distribution Width 12.9 % (11.6-14.8); White Blood Cell Count 5.8 X10^3/uL (4.5-11.0)
[2024-08-02 13:13] LABS: Alanine Aminotransferase 104 IU/L (<50); Albumin 4.6 g/dL (3.5-5.0); Albumin Globulin Ratio 1.8 (1.0-2.8); Alkaline Phosphatase 55 U/L (38-126); Aspartate Aminotransferase 43 IU/L (17-59); Bilirubin Total 1.1 mg/dL (0.2-1.3); Blood Urea Nitrogen 9 mg/dL (9-20); C-Reactive Protein Quant < 0.5 mg/dL (<1.0); Calcium 9.4 mg/dL (8.4-10.2); Carbon Dioxide 25 mmol/L (22-32); Chloride 103 mmol/L (98-107); Estimated Glomerular Filt Rate > 60 mL/min (>60); Globulin 2.5 g/dL (1.7-4.1); Glucose 103 mg/dL (70-100); HEMOLYSIS < 15 (0-50); Potassium 4.5 mmol/L (3.4-5.1); Sodium 136 mmol/L (137-145); Total Protein 7.1 g/dL (6.3-8.2)
[2024-08-02 13:16] LABS: Erythrocyte Sedimentation Rate 1 MM/HR (0-15)
== END ==
PROVIDERS: Family Provider Family Medicine; PCP Family Medicine; Referring Provider Physician Assistant; Visit Provider Physician Assistant
DX: Z87.39 Personal history of other diseases of the musculoskeletal system and connective tissue (principal); M86.9 Osteomyelitis, unspecified
CPT/HCPCS: 36415; 80053; 85025; 85651; 86140

== ENCOUNTER → 2024-08-02 11:58 | Outpatient (CLI) | payer MEDICARE, MEDICAID, SELFPAY ==
[2022-11-24 15:35] VITALS: BMI 28.8
--- NOTE | 2024-08-02 12:00 | DI.RAD.S_ITS ---
PROCEDURE: XR SKULL<4V INDICATIONS: Shunted hydrocephalus TECHNIQUE: 1 view(s) of the skull acquired. COMPARISON: None. FINDINGS: Bones: No fractures. No suspicious bony lesions. Visualized sinuses appear clear. Soft tissues: No soft tissue calcifications. No suspicious soft tissue densities. Right-sided tunneled ventriculostomy catheter appears in appropriate position. IMPRESSION: Tunneled right ventriculostomy catheter in good position without kinks or breaks. Approved by: Drake Mckeon M.D. on 08/06/2024 at 17:47
--- NOTE | 2024-08-02 12:00 | DI.RAD.S_ITS ---
PROCEDURE: XR ABDOMEN 1V INDICATIONS: Other hydrocephalus, ventriculoperitoneal shunt catheter TECHNIQUE: Frontal view of the abdomen acquired. Three images COMPARISON: None. FINDINGS: Right-sided ventriculoperitoneal shunt catheter is noted without evidence of breakage or disruption of the catheter which terminates in the mid pelvis. Calcification in the low pelvis just to the left of the midline which was noted as prosthetic calcification on prior CT unchanged. Suspected spina bifida L4, L5 and into the sacrum. 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 No abnormally dilated bowel to suggest bowel obstruction. No free gas. IMPRESSION: Ventriculoperitoneal shunt catheter without disruption as discussed above. Other findings as above. Dictated by: Stanton Mai M.D. on 08/04/2024 at 11:29 Approved by: Stanton Mai M.D. on 08/04/2024 at 11:39
--- NOTE | 2024-08-02 12:00 | DI.RAD.S_ITS ---
PROCEDURE: XR CHEST 1V INDICATIONS: Other hydrocephalus TECHNIQUE: One view of the chest was acquired. COMPARISON: [facility], CR, XR CHEST 1V, 03/17/2024, 13:57. FINDINGS: Right sided ventriculoperitoneal shunt catheter without radiographic evidence of disruption or breakage unchanged. Low lung volumes with mild bibasilar subsegmental atelectasis some of which may be related to expiratory result, new. Cardiopericardial silhouette and pulmonary vasculature within normal limits for portable AP supine view. No pneumothorax on this supine image, no pleural effusion, no focal consolidation. IMPRESSION: Right-sided BAKER OPERATOR AUTOMATIC shunt catheter without radiographic evidence of complication. Mild bibasilar subsegmental atelectasis Dictated by: Stanton Mai M.D. on 08/04/2024 at 11:39 Approved by: Stanton Mai M.D. on 08/04/2024 at 11:43
== END ==
PROVIDERS: Family Provider Family Medicine; PCP Family Medicine; Referring Provider Neurological Surgery; Visit Provider Neurological Surgery
DX: G91.8 Other hydrocephalus (principal); M86.9 Osteomyelitis, unspecified; J98.11 Atelectasis; Z87.39 Personal history of other diseases of the musculoskeletal system and connective tissue
CPT/HCPCS: 36415; 70250; 71045; 74018; 80053; 85025; 85651; 86140

== ENCOUNTER → 2024-08-07 14:16 | Outpatient (CLI) | payer MEDICARE, MEDICAID, SELFPAY ==
[2022-11-24 15:35] VITALS: BMI 28.8
== END ==
LOC: WC 14:16
PROVIDERS: Family Provider Family Medicine; PCP Family Medicine; Referring Provider Family Medicine; Visit Provider Surgery
DX: L97.512 Non-pressure chronic ulcer of other part of right foot with fat layer exposed (principal); G62.9 Polyneuropathy, unspecified; M21.6X1 Other acquired deformities of right foot; Q05.9 Spina bifida, unspecified; R60.0 Localized edema
CPT/HCPCS: 11042

== ENCOUNTER → 2024-08-13 11:43 | Outpatient (CLI) | payer MEDICARE, MEDICAID, SELFPAY ==
[2022-11-24 15:35] VITALS: BMI 28.8
--- NOTE | 2024-08-13 11:44 | DI.US.S_ITS ---
PROCEDURE: US ARTERIAL DUPLEX LE RT INDICATIONS: Non-healing wound of R dorsal foot. TECHNIQUE: Color and pulse Doppler interrogation was performed of the right lower extremity arterial system, with image documentation. COMPARISON: [facility], , ARTERIAL DUPLEX LE RT, 06/22/2023, 13:36. FINDINGS: Triphasic waveforms are seen throughout including common femoral, deep femoral, SFA, popliteal anterior and posterior tibial arteries. Velocities are uninvolved if. Mild atherosclerotic vascular plaque seen. IMPRESSION: No hemodynamically significant stenosis or occlusion seen. Dictated by: Torey Banks M.D. on 08/13/2024 at 14:18 Approved by: Torey Banks M.D. on 08/13/2024 at 14:21
== END ==
PROVIDERS: Family Provider Family Medicine; PCP Family Medicine; Referring Provider Physician Assistant; Visit Provider Physician Assistant
DX: L97.512 Non-pressure chronic ulcer of other part of right foot with fat layer exposed (principal)
CPT/HCPCS: 93926

== ENCOUNTER → 2024-08-21 13:19 | Outpatient (CLI) | payer MEDICARE, MEDICAID, SELFPAY ==
[2022-11-24 15:35] VITALS: BMI 28.8
== END ==
PROVIDERS: Family Provider Family Medicine; PCP Family Medicine; Referring Provider Family Medicine; Visit Provider Surgery
DX: G62.9 Polyneuropathy, unspecified (principal); L97.515 Non-pressure chronic ulcer of other part of right foot with muscle involvement without evidence of necrosis; M21.6X1 Other acquired deformities of right foot; Q05.9 Spina bifida, unspecified; R20.8 Other disturbances of skin sensation; R60.0 Localized edema; Z89.512 Acquired absence of left leg below knee
CPT/HCPCS: 11042

== ENCOUNTER → 2024-09-03 11:20 | Outpatient (CLI) | payer MEDICARE, MEDICAID, SELFPAY ==
[2022-11-24 15:35] VITALS: BMI 28.8
== END ==
PROVIDERS: Family Provider Family Medicine; PCP Family Medicine; Referring Provider Family Medicine; Visit Provider Surgery
DX: L97.512 Non-pressure chronic ulcer of other part of right foot with fat layer exposed (principal); G62.9 Polyneuropathy, unspecified; R60.0 Localized edema; M21.6X1 Other acquired deformities of right foot; Q05.9 Spina bifida, unspecified; I10 Essential (primary) hypertension
CPT/HCPCS: 11042; 99213

== ENCOUNTER → 2024-09-18 11:00 | Outpatient (CLI) | payer MEDICARE, MEDICAID, SELFPAY ==
[2022-11-24 15:35] VITALS: BMI 28.8
== END ==
PROVIDERS: Family Provider Family Medicine; PCP Family Medicine; Referring Provider Family Medicine; Visit Provider Surgery
DX: L97.512 Non-pressure chronic ulcer of other part of right foot with fat layer exposed (principal); L84 Corns and callosities; R60.0 Localized edema; G62.9 Polyneuropathy, unspecified; M21.6X1 Other acquired deformities of right foot; Q05.9 Spina bifida, unspecified; Z89.512 Acquired absence of left leg below knee
CPT/HCPCS: 11042

== ENCOUNTER 2024-09-25 09:08 | Emergency (ER) | payer MEDICARE, MEDICAID, SELFPAY ==
[2022-11-24 15:35] VITALS: BMI 28.8
[2024-09-25] VITALS (13 sets, daily range): BP systolic 142–186; BP diastolic 75–107; PULSE 29–92; RESP 17–30; TEMP 36.4–36.7; O2SAT 93–99; BMI 29.7
--- NOTE | 2024-09-25 09:31 | ED.NAVMDI ---
HPI - Nausea/Vomiting/Diarrhea General Chief complaint: Nausea/Vomiting/Diarrhea Stated complaint: vomiting, not feeling good Time Seen by Provider: 09/25/24 09:18 Source: patient Mode of arrival: Wheelchair History of Present Illness HPI Narrative: Patient is a 44-year-old male. History of spina bifida. Also has a history hypertension. He was wheelchair bound. Is here for evaluation of 24-36 hours of a headache. He states the last time he felt like this it was noted that he had increased pressure in his head. He does have a SCREW MACHINE TOOL SETTER shunt in place that has been there for approximately 10 years. He does not have a relationship with a neurosurgeon here locally. Most of his prior neurologic history was done at [facility]. He has seen a neurologist locally 1 time but that was several months ago. He was also having some sinus congestion. No sore throat. No fevers. No chest pain shortness of breath. He was having some nausea but no abdominal pain. Related Data Previous Rx's Medication Instructions Recorded Male Incontinence Briefs #100 ea 08/10/22 Prevail Male Guard #100 ea 08/10/22 amlodipine 2.5 mg tablet 2.5 mg PO BEDTIME #90 tabs 10/04/23 losartan 50 mg tablet 50 mg PO DAILY #90 tabs 10/04/23 triamcinolone acetonide 0.5 % 1 applic topical BID PRN Psoriasis 05/15/24 topical cream #15 grams diclofenac potassium 50 mg tablet 50 mg PO TID PRN Pain (Scale Score 07/28/24 4-6) #30 tabs Allergies Allergy/AdvReac Type Severity Reaction Status Date / Time hydrocodone [From Vicodin] AdvReac Mild Nausea Verified 09/25/24 09:14 Review of Systems Review of Systems ROS Unobtainable: All systems reviewed & are unremarkable except as noted in HPI and below Patient History Medical History Osteomyelitis Chronic wrist pain History of osteomyelitis Callus of foot History of bladder stone Chronic pain of left wrist Hydrocephalus Neurogenic bladder Wheelchair dependent Bladder calculi Gross hematuria Callus Incontinence of urine Hypertension Spina bifida Sacral decubitus ulcer Spina bifida Surgical History History of left below knee amputation History of orthopedic surgery (06/16/22) S/P SCREW MACHINE TOOL SETTER shunt Family History Mother Hypertension UTI (urinary tract infection) Father No pertinent past medical history Social History marital status: unmarried,single household members: family occupational status: employed Smoking Status: Never smoker alcohol intake: current substance use type: marijuana caffeine: No Type(s) of exercise: decline to answer Smoking Status: Never smoker alcohol intake frequency: holidays/special occasions only Exam Initial Vital Signs Initial Vital Signs: Vital Signs Temperature 97.6 F 09/25/24 09:09 Pulse Rate 87 09/25/24 09:09 Respiratory Rate 17 09/25/24 09:09 Blood Pressure 186/107 H 09/25/24 09:09 Pulse Oximetry 98 09/25/24 09:09 Oxygen Delivery Method Room Air 09/25/24 09:09 Const General: cooperative, comfortable and No ill appearing HENMT Head: normal to inspection and normocephalic HENMT Other: SCREW MACHINE TOOL SETTER shunt in place right occipital region Resp Effort & Inspection: normal respiratory effort Auscultation: clear to auscultation bilaterally Cardio Rate: regular rate Rhythm: regular rhythm GI Inspection: normal to inspection Neuro General: patient alert and patient awake Speech: speech normal Extrem Other: Left side [id number] amputation. Atrophy to the right lower extremity. Course Orders Ordered: ED Orders 09/25/24 09:24 Basic Metabolic Panel Stat Complete Blood Count AUTO DIFF Stat 09/25/24 09:34 CT head/brain wo con Stat 09/25/24 09:46 Covid-19 + FLU A/B + RSV - PCR Stat Acetaminophen (Ofirmev) 1,000 mg in 100 mls @ 400 mls/hr IV NOW ONE Stop: 09/25/24 12:56 Discontinued Medications Hydromorphone HCl (Hydromorphone 0.5 Mg Inj) 0.5 mg IV NOW ONE Stop: 09/25/24 09:36 Last Admin: 09/25/24 09:42 Dose: 0.5 mg Documented By: FADY Hydromorphone HCl (Hydromorphone 1 Mg Inj) 1 mg IV NOW ONE Stop: 09/25/24 10:12 Last Admin: 09/25/24 10:14 Dose: 1 mg Documented By: FADY Ketorolac Tromethamine (Ketorolac 30 Mg/Ml Vial) 15 mg IV NOW ONE Stop: 09/25/24 10:12 Last Admin: 09/25/24 10:14 Dose: 15 mg Documented By: FADY Ondansetron HCl (Ondansetron 4 Mg/2 Ml Inj) 4 mg IV NOW ONE Stop: 09/25/24 09:47 Last Admin: 09/25/24 09:48 Dose: 4 mg Documented By: FADY Vital Signs Vital signs: Vital Signs - 8 hr 09/25/24 09:09 09/25/24 09:12 09/25/24 09:13 Temperature 97.6 F Pulse Rate 87 92 H 85 Respiratory Rate 17 Blood Pressure 186/107 H Pulse Oximetry 98 98 98 Oxygen Delivery Method Room Air 09/25/24 09:13 09/25/24 09:30 09/25/24 10:01 Temperature Pulse Rate 83 77 Respiratory Rate Blood Pressure 186/107 H Pulse Oximetry 99 98 Oxygen Delivery Method 09/25/24 10:03 09/25/24 10:03 09/25/24 10:30 Temperature Pulse Rate 74 66 Respiratory Rate 17 Blood Pressure 142/96 H Pulse Oximetry 98 95 Oxygen Delivery Method 09/25/24 10:30 09/25/24 11:00 09/25/24 11:00 Temperature Pulse Rate 29 L Respiratory Rate 23 Blood Pressure 153/90 H 142/75 H Pulse Oximetry 93 Oxygen Delivery Method 09/25/24 11:30 09/25/24 11:30 09/25/24 12:00 Temperature Pulse Rate 60 59 L Respiratory Rate 30 H 23 Blood Pressure 150/77 H Pulse Oximetry 97 96 Oxygen Delivery Method 09/25/24 12:00 Temperature Pulse Rate Respiratory Rate Blood Pressure 150/86 H Pulse Oximetry Oxygen Delivery Method MDM - Nausea/Vomiting/Diarrhea Lab Data Attestation: I reviewed the patient's lab results. 09/25/24 09:24 09/25/24 09:24 Labs: Lab Results 09/25/24 09/25/24 Range/Units 09:24 09:46 WBC 9.5 (4.5-11.0) X10^3/uL RBC 5.57 (4.5-5.9) X10^6/uL Hgb 17.3 (13.5-17.5) g/dL Hct 50.7 (41-53) % MCV 90.9 (80-100) fL MCH 31.1 (26-34) PG MCHC 34.2 (30-36) % RDW 13.3 (11.6-14.8) % Plt Count 339 (150-400) X10^3/uL Neut % (Auto) 80.8 H (50-75) % Lymph % (Auto) 12.5 L (25-40) % [place] % (Auto) 5.4 (3-14) % Eos % (Auto) 0.8 L (2-4) % Baso % (Auto) 0.5 (0-2) % Neut # (Auto) 7700 H (4778-4311) /uL Lymph # (Auto) 1200 (5322-4494) /uL [place] # (Auto) 500 (0-900) /uL Eos # (Auto) 100 (0-450) /uL Baso # (Auto) 100 (0-100) /uL Sodium 136 L (137-145) mmol/L Potassium 4.4 (3.4-5.1) mmol/L Chloride 101 (98-107) mmol/L Carbon Dioxide 24 (22-32) mmol/L BUN 12 (9-20) mg/dL Creatinine 0.82 (0.66-1.25) mg/dL Estimated GFR > 60 (>60) mL/min BUN/Creatinine Ratio 14.6 (6-22) Glucose 130 H (70-100) mg/dL Calcium 10.0 (8.4-10.2) mg/dL SARS-CoV-2 (PCR) Negative (Negative) Influenza A (RT-PCR) Flu a negative (NEGATIVE) Influenza B (RT-PCR) Flu b negative (NEGATIVE) RSV (PCR) Negative (Negative) Imaging Data CT scan - head: Radiologist's Impression: PROCEDURE: CT HEAD/BRAIN WO CON INDICATIONS: has SCREW MACHINE TOOL SETTER shunt with headache TECHNIQUE: Noncontrast 4.5 mm thick angled axial sections acquired from the foramen magnum to the vertex, with coronal and sagittal reformats. For radiation dose reduction, the following was used: automated exposure control, adjustment of mA and/or kV according to patient size. COMPARISON: [facility], CT, CT HEAD/BRAIN WO CON, 04/10/2024, 12:12. FINDINGS: Image quality: Diagnostic. CSF spaces: There is a right parietal approach ventriculostomy catheter shunt, with the tip crossing the midline and seen within the anterior aspect of the left lateral ventricle. The size of the ventricles is prominent, yet similar to the prior. The basal cisterns are patent. No extra-axial fluid collections. Ventricles are normal in size and shape. Brain: No midline shift. No intracranial masses or hemorrhage. Javed-white matter interface is normal. Skull and face: Calvarium and visualized facial bones are intact, without suspicious lesions. Sinuses: Visualized sinuses and mastoids are clear. IMPRESSION: There is a stable right parietal approach ventriculostomy catheter. The ventricles are prominent. The ventricles are not significantly changed compared to the prior. MDM Narrative Medical decision making narrative: Patient reports improvement of symptoms after medications here in the emergency department. Head CT today shows no signs of increased intracranial pressure. I have low suspicion for meningitis. No trauma. Based on his presentation today and he was history of low suspicion for intracranial hemorrhage. No mass effect noted on CT scan as well. Plan will be to discharge patient home with instructions for symptom control. He was advised to follow up with his neurologist. He was given return precautions. Expressed understanding Discharge Plan Departure Patient Disposition: Home Clinical Impression: Headache Instructions: DI for Headache Activity Restrictions/Additional Instructions: Recommend that you continue to take all of your medications as directed. You can continue to take Tylenol and/or ibuprofen for discomfort. Contact your primary doctor for a follow-up. Return to the emergency department for new or worsening symptoms. Prescriptions: No Action (DME) Prevail Male Guard See Rx Instructions .Route .MEDSUPPLY Qty: 100 12RF Rx Instructions: As directed (DME) Male Incontinence Briefs Medium See Rx Instructions .Route .MEDSUPPLY Qty: 100 12RF Rx Instructions: As directed triamcinolone acetonide 0.5 % cream 1 applic topical BID PRN (Reason: Psoriasis) Qty: 15 1RF diclofenac potassium 50 mg tablet 50 mg PO TID PRN (Reason: Pain (Scale Score 4-6)) Qty: 30 1RF Rx Instructions: TAKE 1 TABLET BY MOUTH THREE TIMES DAILY NEEDED FOR PAIN losartan 50 mg tablet 50 mg PO DAILY Qty: 90 3RF Rx Instructions: take in the AM amlodipine 2.5 mg tablet 2.5 mg PO BEDTIME Qty: 90 3RF Rx Instructions: take dinner/bedtime Referrals: Yari Garcia, [Primary Care Provider] - Stand Alone Forms: Patient Portal/API/Survey
--- NOTE | 2024-09-25 09:34 | DI.CT.S_ITS ---
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 For radiation dose reduction, the following was used: automated exposure control, adjustment of mA and/or kV according to patient size. COMPARISON: [facility], CT, CT HEAD/BRAIN WO CON, 04/10/2024, 12:12. FINDINGS: Image quality: Diagnostic. CSF spaces: There is a right parietal approach ventriculostomy catheter shunt, with the tip crossing the midline and seen within the anterior aspect of the left lateral ventricle. The size of the ventricles is prominent, yet similar to the prior. The basal cisterns are patent. No extra-axial fluid collections. Ventricles are normal in size and shape. Brain: No midline shift. No intracranial masses or hemorrhage. Javed-white matter interface is normal. Skull and face: Calvarium and visualized facial bones are intact, without suspicious lesions. Sinuses: Visualized sinuses and mastoids are clear. IMPRESSION: There is a stable right parietal approach ventriculostomy catheter. The ventricles are prominent. The ventricles are not significantly changed compared to the prior. Dictated by: Byron Smith M.D. on 09/25/2024 at 9:06 Approved by: Byron Smith M.D. on 09/25/2024 at 9:08
[2024-09-25 09:42] LABS: Add Manual Diff / Slide Review NO; Basophils Absolute Auto 100 /uL (0-100); Basophils Percent Auto 0.5 % (0-2); Eosinophils Absolute Auto 100 /uL (0-450); Eosinophils Percent Auto 0.8 % (2-4); Hematocrit 50.7 % (41-53); Hemoglobin 17.3 g/dL (13.5-17.5); Lymphocytes Absolute Auto 1200 /uL (1100-4500); Lymphocytes Percent Auto 12.5 % (25-40); Mean Corpuscular HGB Conc 34.2 % (30-36); Mean Corpuscular Hemoglobin 31.1 PG (26-34); Mean Corpuscular Volume 90.9 fL (80-100); Monocytes Absolute Auto 500 /uL (0-900); Monocytes Percent Auto 5.4 % (3-14); Neutrophils Absolute Auto 7700 /uL (1500-7000); Neutrophils Percent Auto 80.8 % (50-75); Platelet Count 339 X10^3/uL (150-400); Red Blood Cell Count 5.57 X10^6/uL (4.5-5.9); Red Cell Distribution Width 13.3 % (11.6-14.8); White Blood Cell Count 9.5 X10^3/uL (4.5-11.0)
[2024-09-25] MEDS: HYDROMORPHONE 0.5 MG INJ IV (09:42)
[2024-09-25 09:48] LABS: BUN Creatinine Ratio 14.6 (6-22); Blood Urea Nitrogen 12 mg/dL (9-20); Carbon Dioxide 24 mmol/L (22-32); Chloride 101 mmol/L (98-107); Estimated Glomerular Filt Rate > 60 mL/min (>60); Glucose 130 mg/dL (70-100); HEMOLYSIS < 15 (0-50); Potassium 4.4 mmol/L (3.4-5.1); Sodium 136 mmol/L (137-145)
[2024-09-25] MEDS: ONDANSETRON 4 MG/2 ML INJ IV (09:48)
[2024-09-25] MEDS: KETOROLAC 30 MG/ML VIAL 15 MG IV (10:14)
[2024-09-25] MEDS: HYDROMORPHONE 1 MG INJ IV (10:14)
[2024-09-25 10:36] LABS: COVID-19 CEPHEID 4-PLEX PCR Negative (Negative); Influenza A - CEPHEID Flu A NEGATIVE (NEGATIVE); Influenza B - CEPHEID Flu B NEGATIVE (NEGATIVE); Respiratory Syncytial Virus Negative (Negative)
[2024-09-25] MEDS: ACETAMINOPHEN IV 1,000 MG/100 ML VIAL 400 MG IV (12:59)
== END 2024-09-25 13:25 | disposition home or self-care (01) ==
PROVIDERS: Emergency Provider Emergency Medicine; Family Provider Family Medicine; PCP Family Medicine
DX: R51.9 Headache, unspecified (principal); Q05.9 Spina bifida, unspecified; Z99.3 Dependence on wheelchair
CPT/HCPCS: 0241U; 36415; 70450; 80048; 85025; 96374; 96375; 96376; 99284; J0134; J1171; J1885; J2405

== ENCOUNTER → 2024-10-02 11:39 | Outpatient (CLI) | payer MEDICARE, MEDICAID, SELFPAY ==
[2022-11-24 15:35] VITALS: BMI 28.8
== END ==
PROVIDERS: Family Provider Family Medicine; PCP Family Medicine; Referring Provider Family Medicine; Visit Provider Surgery
DX: L97.512 Non-pressure chronic ulcer of other part of right foot with fat layer exposed (principal); L84 Corns and callosities; R60.0 Localized edema; G62.9 Polyneuropathy, unspecified; M21.6X1 Other acquired deformities of right foot; I10 Essential (primary) hypertension; Q05.9 Spina bifida, unspecified; Z89.512 Acquired absence of left leg below knee
CPT/HCPCS: 11042; 99213

== ENCOUNTER → 2024-10-17 10:23 | Outpatient (CLI) | payer MEDICARE, MEDICAID, SELFPAY ==
[2022-11-24 15:35] VITALS: BMI 28.8
== END ==
LOC: WC 10:25
PROVIDERS: Family Provider Family Medicine; PCP Family Medicine; Referring Provider Family Medicine; Visit Provider Physician Assistant
DX: L97.515 Non-pressure chronic ulcer of other part of right foot with muscle involvement without evidence of necrosis (principal); G62.9 Polyneuropathy, unspecified; L84 Corns and callosities; R60.0 Localized edema; Q05.9 Spina bifida, unspecified; I10 Essential (primary) hypertension; Z89.512 Acquired absence of left leg below knee
CPT/HCPCS: 99212; 99213

== ENCOUNTER 2025-01-19 07:35 | Emergency (ER) | payer MEDICARE, MEDICAID, SELFPAY ==
[2022-11-24 15:35] VITALS: BMI 28.8
[2025-01-19] VITALS (11 sets, daily range): BP systolic 157–185; BP diastolic 96–102; PULSE 69–80; RESP 18–20; TEMP 36.6; O2SAT 93–99; BMI 31.3
--- NOTE | 2025-01-19 08:01 | ED.ABDPAIN ---
HPI - Abdominal Pain <Taurus Edward DO - Last Filed: 01/19/25 17:58> General Chief Complaint: Abdominal Pain Stated Complaint: Back pain , bilateral side pain Time Seen by Provider: 01/19/25 07:50 Source: patient Mode of arrival: Ambulatory History of Present Illness HPI narrative: 44-year-old male bilateral [id number] amputee and past medical history of hypertension presents with bilateral abdominal pain but worse in the right upper quadrant radiating to the back that woke him up from sleep today and also has been having diarrhea for the past few days. He denies nausea vomiting constipation penile discharge testicular pain blood in the urine fever or chills. Other than what is stated 14 point review of system is negative Related Data Home Medications Medication Instructions Recorded Confirmed tramadol 50 mg tablet 50 mg PO Q6H PRN 10/03/24 11/13/24 gabapentin 300 mg capsule mg PO 3XD 11/13/24 11/13/24 Previous Rx's Medication Instructions Recorded Male Incontinence Briefs #100 ea 08/10/22 Prevail Male Guard #100 ea 08/10/22 triamcinolone acetonide 0.5 % 1 applic topical BID PRN Psoriasis 05/15/24 topical cream #15 grams amlodipine 2.5 mg tablet 2.5 mg PO BEDTIME #90 tabs 10/02/24 diclofenac potassium 50 mg tablet 50 mg PO TID PRN Pain (Scale Score 10/03/24 4-6) #90 tabs losartan 50 mg tablet 100 mg (2 x 50 mg) PO DAILY #180 10/03/24 tabs cefdinir 300 mg capsule 300 mg PO BID 7 days #14 caps 01/19/25 Allergies Allergy/AdvReac Type Severity Reaction Status Date / Time hydrocodone [From Vicodin] AdvReac Mild Nausea Verified 11/13/24 11:26 Review of Systems <Taurus Edward DO - Last Filed: 01/19/25 17:58> Review of Systems ROS Unobtainable: All systems reviewed & are unremarkable except as noted in HPI and below Patient History <Taurus Edward DO - Last Filed: 01/19/25 17:58> Medical History Osteomyelitis Chronic wrist pain History of osteomyelitis Callus of foot History of bladder stone Chronic pain of left wrist Hydrocephalus Neurogenic bladder Wheelchair dependent Bladder calculi Gross hematuria Callus Incontinence of urine Hypertension Spina bifida Sacral decubitus ulcer Spina bifida Surgical History Hx of right BKA History of left below knee amputation History of orthopedic surgery (06/16/22) 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 Well-developed patient, in mild distress. B/L BKA HEAD: Atraumatic. Normocephalic. EYES: Pupils equal round and reactive. Extraocular motions intact. No scleral icterus. No injection or drainage. ENT: Nose without bleeding, purulent drainage. Throat without erythema, tonsillar hypertrophy or exudate. Airway patent. NECK: Trachea midline. Non tender CARDIOVASCULAR: Regular rate and rhythm without murmurs, gallops, or rubs. RESPIRATORY: Clear to auscultation. Breath sounds equal bilaterally. No wheezes, rales, or rhonchi. GASTROINTESTINAL: Abdomen soft, RUQ TTP but no r/r/g, nondistended. EXTREMITIES: No edema or joint tenderness. BACK: Nontender without deformity or crepitance. No flank tenderness. NEURO: AOx3. SKIN: No rash or erythema of visible areas Initial Vital Signs Initial Vital Signs: Vital Signs Pulse Rate 80 01/19/25 07:44 Pulse Oximetry 98 01/19/25 07:44 <Guerrero Trinidad MD - Last Filed: 01/19/25 20:57> Initial Vital Signs Initial Vital Signs: Vital Signs Pulse Rate 80 01/19/25 07:44 Pulse Oximetry 98 01/19/25 07:44 Course <Taurus Edward DO - Last Filed: 01/19/25 17:58> Orders Ordered: Discontinued Medications Hydromorphone HCl (Hydromorphone 1 Mg Inj) 1 mg IV NOW ONE Stop: 01/19/25 08:32 Last Admin: 01/19/25 08:34 Dose: 1 mg Documented By: MPO Sodium Chloride (Normal Saline 0.9%) 1,000 mls @ 1,000 mls/hr IV BOLUS ONE Stop: 01/19/25 09:02 Last Infusion: 01/19/25 09:23 Dose: Infused Documented By: Admin: 01/19/25 08:09 Dose: 1,000 mls/hr Documented By: SPF Ceftriaxone Sodium 1,000 mg/ (Sodium Chloride) 100 mls @ 200 mls/hr IV NOW ONE Stop: 01/19/25 09:24 Last Infusion: 01/19/25 10:07 Dose: Infused Documented By: Admin: 01/19/25 09:31 Dose: 200 mls/hr Documented By: SPF Ketorolac Tromethamine (Ketorolac 30 Mg/Ml Vial) 30 mg IV NOW ONE Stop: 01/19/25 08:04 Last Admin: 01/19/25 08:09 Dose: 30 mg Documented By: SPF Vital Signs Vital signs: Vital Signs - 8 hr 01/19/25 10:00 01/19/25 10:00 01/19/25 10:16 Temperature 98 F Pulse Rate 69 77 Respiratory Rate 20 Blood Pressure 157/96 H 157/96 H Pulse Oximetry 94 96 Oxygen Delivery Method Room Air <Guerrero Trinidad MD - Last Filed: 01/19/25 20:57> Orders Ordered: Discontinued Medications Hydromorphone HCl (Hydromorphone 1 Mg Inj) 1 mg IV NOW ONE Stop: 01/19/25 08:32 Last Admin: 01/19/25 08:34 Dose: 1 mg Documented By: MPO Sodium Chloride (Normal Saline 0.9%) 1,000 mls @ 1,000 mls/hr IV BOLUS ONE Stop: 01/19/25 09:02 Last Infusion: 01/19/25 09:23 Dose: Infused Documented By: Admin: 01/19/25 08:09 Dose: 1,000 mls/hr Documented By: SPF Ceftriaxone Sodium 1,000 mg/ (Sodium Chloride) 100 mls @ 200 mls/hr IV NOW ONE Stop: 01/19/25 09:24 Last Infusion: 01/19/25 10:07 Dose: Infused Documented By: Admin: 01/19/25 09:31 Dose: 200 mls/hr Documented By: STEPHANIE Ketorolac Tromethamine (Ketorolac 30 Mg/Ml Vial) 30 mg IV NOW ONE Stop: 01/19/25 08:04 Last Admin: 01/19/25 08:09 Dose: 30 mg Documented By: STEPHANIE Vital Signs Vital signs: Vital Signs - 8 hr 01/19/25 10:00 01/19/25 10:00 01/19/25 10:16 Temperature 98 F Pulse Rate 69 77 Respiratory Rate 20 Blood Pressure 157/96 H 157/96 H Pulse Oximetry 94 96 Oxygen Delivery Method Room Air MDM - Abdominal Pain <Taurus Edward, - Last Filed: 01/19/25 17:58> Lab Data 01/19/25 07:55 01/19/25 07:55 Labs: Lab Results 01/19/25 01/19/25 Range/Units 07:55 08:36 WBC 12.3 H (4.5-11.0) X10^3/uL RBC 4.94 (4.5-5.9) X10^6/uL Hgb 14.6 (13.5-17.5) g/dL Hct 43.0 (41-53) % MCV 87.1 (80-100) fL MCH 29.5 (26-34) PG MCHC 33.9 (30-36) % RDW 13.5 (11.6-14.8) % Plt Count 311 (150-400) X10^3/uL Neut % (Auto) 78.9 H (50-75) % Lymph % (Auto) 12.8 L (25-40) % [place] % (Auto) 6.5 (3-14) % Eos % (Auto) 1.4 L (2-4) % Baso % (Auto) 0.4 (0-2) % Neut # (Auto) 9700 H (4541-8519) /uL Lymph # (Auto) 1600 (0510-2632) /uL [place] # (Auto) 800 (0-900) /uL Eos # (Auto) 200 (0-450) /uL Baso # (Auto) 0 (0-100) /uL Sodium 139 (137-145) mmol/L Potassium 4.0 (3.4-5.1) mmol/L Chloride 107 (98-107) mmol/L Carbon Dioxide 22 (22-32) mmol/L BUN 11 (9-20) mg/dL Creatinine 0.86 (0.66-1.25) mg/dL Estimated GFR > 60 (>60) mL/min BUN/Creatinine Ratio 12.8 (6-22) Glucose 117 H (70-100) mg/dL Calcium 9.7 (8.4-10.2) mg/dL Total Bilirubin 1.0 (0.2-1.3) mg/dL AST 34 (17-59) IU/L ALT 50 H (<50) IU/L Alkaline Phosphatase 87 (38-126) U/L Total Protein 8.1 (6.3-8.2) g/dL Albumin 4.7 (3.5-5.0) g/dL Globulin 3.4 (1.7-4.1) g/dL Albumin/Globulin Ratio 1.4 (1.0-2.8) Lipase 407 H (23-300) U/L Urine Color Yellow Urine Appearance Clear Urine pH 6.0 (4.5-8.0) Ur Specific [place] 1.020 (1.000-1.035) Urine Protein 3+ H (Negative) Urine Glucose (UA) Negative (Negative) g/dL Urine Ketones Trace H (NEGATIVE) Urine Occult Blood 3+ H (Negative) Urine Nitrate Positive H (Negative) Urine Bilirubin Negative (NEGATIVE) Urine Urobilinogen 0.2 (0.2) E.U./dL Ur Leukocyte Esterase 1+ H (NEGATIVE) Urine RBC 30-100/hpf H (0-5/HPF) Urine WBC 10-30/hpf H (0-5/HPF) Ur Squamous Epith Cells 0-1 /hpf (0-5/HPF) Urine Bacteria Many (>30) H (None) Ur Culture Indicated? Specimen cultured Vol Urine Centrifuged 10ml (spun) MDM Narrative Medical decision making narrative: Pt s/o to at shift change pending final disposition 01/19/2025, [id number], Amos. Sign-out from Dr. Edward. 44-year-old male with history of spina bifida, bilateral BKA surgeries due to lower extremity infections, presenting with mid upper abdominal pain, afebrile, sirs screen negative, white blood cell count [id number], liver functions and lipase normal. Urinalysis pending. CT abdomen and pelvis had been ordered, results pending. Patient had been prescribed IV fluid bolus, IV Dilaudid, IV Toradol. Pain seems improved. Assumed care. Urinalysis shows pyuria, nitrite positive, bacteriuria. Urine culture requested by protocol. IV ceftriaxone for UTI coverage for now. 929, CT abdomen and pelvis, impressions: ?development of significant diffuse bladder wall thickening with inflammatory change in the adjacent fat. Findings are consistent with acute cystitis. Moderate diffuse hepatic steatosis. 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 see tele radiology report Copy of report printed given to patient with explanation. IV antibiotics started for suspected UTI by urinalysis results, acute cystitis changes noted on imaging. No bladder outlet obstruction description. Trial of outpatient antibiotics. We will hold on gallbladder ultrasound imaging or any further advanced abdominal imaging. Patient agreeable. Antibiotic prescription sent to his pharmacy. He will get a ride home with his mother. Follow up advised with his regular doctor if not improving in the next couple of days. He should be contacted if that happens to be resistant bacteria in the urine culture. Discharged home, return precautions discussed. <Guerrero Trinidad MD - Last Filed: 01/19/25 20:57> Lab Data Labs: Lab Results 01/19/25 01/19/25 Range/Units 07:55 08:36 WBC 12.3 H (4.5-11.0) X10^3/uL RBC 4.94 (4.5-5.9) X10^6/uL Hgb 14.6 (13.5-17.5) g/dL Hct 43.0 (41-53) % MCV 87.1 (80-100) fL MCH 29.5 (26-34) PG MCHC 33.9 (30-36) % RDW 13.5 (11.6-14.8) % Plt Count 311 (150-400) X10^3/uL Neut % (Auto) 78.9 H (50-75) % Lymph % (Auto) 12.8 L (25-40) % [place] % (Auto) 6.5 (3-14) % Eos % (Auto) 1.4 L (2-4) % Baso % (Auto) 0.4 (0-2) % Neut # (Auto) 9700 H (2388-9178) /uL Lymph # (Auto) 1600 (3352-9197) /uL [place] # (Auto) 800 (0-900) /uL Eos # (Auto) 200 (0-450) /uL Baso # (Auto) 0 (0-100) /uL Sodium 139 (137-145) mmol/L Potassium 4.0 (3.4-5.1) mmol/L Chloride 107 (98-107) mmol/L Carbon Dioxide 22 (22-32) mmol/L BUN 11 (9-20) mg/dL Creatinine 0.86 (0.66-1.25) mg/dL Estimated GFR > 60 (>60) mL/min BUN/Creatinine Ratio 12.8 (6-22) Glucose 117 H (70-100) mg/dL Calcium 9.7 (8.4-10.2) mg/dL Total Bilirubin 1.0 (0.2-1.3) mg/dL AST 34 (17-59) IU/L ALT 50 H (<50) IU/L Alkaline Phosphatase 87 (38-126) U/L Total Protein 8.1 (6.3-8.2) g/dL Albumin 4.7 (3.5-5.0) g/dL Globulin 3.4 (1.7-4.1) g/dL Albumin/Globulin Ratio 1.4 (1.0-2.8) Lipase 407 H (23-300) U/L Urine Color Yellow Urine Appearance Clear Urine pH 6.0 (4.5-8.0) Ur Specific [place] 1.020 (1.000-1.035) Urine Protein 3+ H (Negative) Urine Glucose (UA) Negative (Negative) g/dL Urine Ketones Trace H (NEGATIVE) Urine Occult Blood 3+ H (Negative) Urine Nitrate Positive H (Negative) Urine Bilirubin Negative (NEGATIVE) Urine Urobilinogen 0.2 (0.2) E.U./dL Ur Leukocyte Esterase 1+ H (NEGATIVE) Urine RBC 30-100/hpf H (0-5/HPF) Urine WBC 10-30/hpf H (0-5/HPF) Ur Squamous Epith Cells 0-1 /hpf (0-5/HPF) Urine Bacteria Many (>30) H (None) Ur Culture Indicated? Specimen cultured Vol Urine Centrifuged 10ml (spun) MDM Narrative Medical decision making narrative: Pt s/o to at shift change pending final disposition 01/19/2025, 0900, Amos. Sign-out from Dr. Edward. 44-year-old male with history of spina bifida, bilateral BKA surgeries due to lower extremity infections, presenting with mid upper abdominal pain, afebrile, sirs screen negative, white blood cell count [id number], liver functions and lipase normal. Urinalysis pending. CT abdomen and pelvis had been ordered, results pending. Patient had been prescribed IV fluid bolus, IV Dilaudid, IV Toradol. Pain seems improved. Assumed care. Urinalysis shows pyuria, nitrite positive, bacteriuria. Urine culture requested by protocol. IV ceftriaxone for UTI coverage. 929, CT abdomen and pelvis, impressions: ?Development of significant diffuse bladder wall thickening with inflammatory change in the adjacent fat. Findings are consistent with acute cystitis. Moderate diffuse hepatic steatosis. 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 See tele radiology report Copy of report printed given to patient with explanation. IV antibiotics started for suspected UTI by urinalysis results, acute cystitis changes noted on CT abdominopelvic imaging. No bladder outlet obstruction description. Trial of outpatient antibiotics. We will hold on gallbladder ultrasound imaging or any further advanced abdominal imaging. Patient agreeable. Antibiotic prescription sent to his pharmacy. He will get a ride home with his mother. Follow up advised with his regular doctor if not improving in the next couple of days. He should be contacted if that happens to be resistant bacteria in the urine culture. Discharged home, return precautions discussed. Discharge Plan Departure Patient Disposition: Home Clinical Impression: Urinary tract infection, Abdominal pain, History of spina bifida Activity Restrictions/Additional Instructions: History of spina bifida, today having abdominal pain complaint, urinalysis with bacteria and inflammatory cells prompting urine culture by protocol, suspicious for urinary tract infection, IV ceftriaxone antibiotic initiated for possible urinary tract infection treatment. CT abdomen and pelvis imaging had been ordered, results showed inflammation around the bladder, consistent with cystitis bladder infection. No mention of any obstructing stone in either ureter, nor any kidney changes right or left side. No other acute changes mentioned on the CT scan report. Further antibiotics prescription sent to your pharmacy. Take antibiotics as directed. Drink plenty of fluids. Continue taking your diclofenac medication. Consider recheck if symptoms are not improving in the next couple of days with your regular doctor. Return earlier to this/nearest emergency department for any change worsening symptoms or any concerns prior. Prescriptions: New cefdinir 300 mg capsule 300 mg PO BID 7 Days Qty: 14 0RF No Action (DME) Prevail Male Guard See Rx Instructions .Route .MEDSUPPLY Qty: 100 12RF Rx Instructions: As directed (DME) Male Incontinence Briefs Medium See Rx Instructions .Route .MEDSUPPLY Qty: 100 12RF Rx Instructions: As directed triamcinolone acetonide 0.5 % cream 1 applic topical BID PRN (Reason: Psoriasis) Qty: 15 1RF amlodipine 2.5 mg tablet 2.5 mg PO BEDTIME Qty: 90 3RF Rx Instructions: take dinner/bedtime losartan 50 mg tablet 100 mg PO DAILY Qty: 180 3RF Rx Instructions: take in the AM diclofenac potassium 50 mg tablet 50 mg PO TID PRN (Reason: Pain (Scale Score 4-6)) Qty: 90 1RF Rx Instructions: TAKE 1 TABLET BY MOUTH THREE TIMES DAILY NEEDED FOR PAIN tramadol 50 mg tablet 50 mg PO Q6H PRN gabapentin 300 mg capsule PO 3XD Referrals: Yair Garcia DO [Primary Care Provider] - Stand Alone Forms: Patient Portal/API/Survey
--- NOTE | 2025-01-19 08:04 | DI.CT.S_ITS ---
PROCEDURE: CT ABDOMEN PELVIS W CON INDICATIONS: abd pain TECHNIQUE: After the administration of intravenous contrast, axial sections acquired from the lung bases to the pubic symphysis. Coronal and sagittal reformats were performed. For radiation dose reduction, the following was used: automated exposure control, adjustment of mA and/or kV according to patient size. COMPARISON: [facility], CT, CT CHEST ABD PEL W CON, 03/17/2024, 17:12. FINDINGS: Image quality: Diagnostic. Lower Chest: No significant findings. ABDOMEN: Liver: No solid mass. Gallbladder: No radiopaque gallstones or wall thickening. Biliary ducts: No biliary dilation. Pancreas: No ductal dilation. Spleen: Size is within normal limits. Adrenal Glands: No adrenal nodules. Kidneys and Ureters: No hydronephrosis. No solid mass. No complex renal cystic lesion which requires follow up. Stomach and Bowel: Normal colonic caliber, without significant wall thickening. Diverticulosis without evidence of acute diverticulitis. Peritoneum: No abnormal intraperitoneal fluid. No free air. Ventral Wall: No significant ventral hernia. Abdominal Nodes: No retroperitoneal or mesenteric adenopathy by size criteria. Vessels: Aorta and inferior vena cava are normal in size. PELVIS: Pelvic Organs: Large prostate calcification incidentally noted, unchanged. Bladder: Development of marked bladder wall thickening with inflammatory change in the subjacent fat and minimal inflammatory fluid. Pelvic Nodes: No enlarged lymph nodes. Miscellaneous: No inguinal hernias are seen. [employer] shunt. Bones: No aggressive osseous abnormality. Bilateral L5 pars defects. Lumbar degenerative change. Sacral spinal dysraphism. IMPRESSION: 1. Development of significant diffuse bladder wall thickening with inflammatory change in the adjacent fat. Findings are consistent with acute cystitis. 2. Moderate diffuse hepatic steatosis. 3. 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 Dictated by: Peterson Lema M.D. on 01/19/2025 at 8:29 Approved by: Petreson Lema M.D. on 01/19/2025 at 8:35
[2025-01-19] MEDS: KETOROLAC 30 MG/ML VIAL IV (08:09)
[2025-01-19] MEDS: SODIUM CHLORIDE 0.9% 1,000 ML 1000 ML IV (08:09)
[2025-01-19 08:14] LABS: Add Manual Diff / Slide Review NO; Basophils Absolute Auto 0 /uL (0-100); Basophils Percent Auto 0.4 % (0-2); Eosinophils Absolute Auto 200 /uL (0-450); Eosinophils Percent Auto 1.4 % (2-4); Hemoglobin 14.6 g/dL (13.5-17.5); Lymphocytes Absolute Auto 1600 /uL (1100-4500); Lymphocytes Percent Auto 12.8 % (25-40); Mean Corpuscular HGB Conc 33.9 % (30-36); Mean Corpuscular Hemoglobin 29.5 PG (26-34); Mean Corpuscular Volume 87.1 fL (80-100); Monocytes Absolute Auto 800 /uL (0-900); Monocytes Percent Auto 6.5 % (3-14); Neutrophils Absolute Auto 9700 /uL (1500-7000); Neutrophils Percent Auto 78.9 % (50-75); Platelet Count 311 X10^3/uL (150-400); Red Blood Cell Count 4.94 X10^6/uL (4.5-5.9); Red Cell Distribution Width 13.5 % (11.6-14.8); White Blood Cell Count 12.3 X10^3/uL (4.5-11.0)
[2025-01-19 08:18] LABS: Alanine Aminotransferase 50 IU/L (<50); Albumin 4.7 g/dL (3.5-5.0); Albumin Globulin Ratio 1.4 (1.0-2.8); Alkaline Phosphatase 87 U/L (38-126); Aspartate Aminotransferase 34 IU/L (17-59); BUN Creatinine Ratio 12.8 (6-22); Blood Urea Nitrogen 11 mg/dL (9-20); Calcium 9.7 mg/dL (8.4-10.2); Carbon Dioxide 22 mmol/L (22-32); Chloride 107 mmol/L (98-107); Estimated Glomerular Filt Rate > 60 mL/min (>60); Globulin 3.4 g/dL (1.7-4.1); Glucose 117 mg/dL (70-100); HEMOLYSIS 42 (0-50); Lipase 407 U/L (23-300); Sodium 139 mmol/L (137-145); Total Protein 8.1 g/dL (6.3-8.2)
[2025-01-19] MEDS: HYDROMORPHONE 1 MG INJ IV (08:34)
[2025-01-19 08:53] LABS: Appearance Urine UA CLEAR; Bilirubin Urine UA NEGATIVE (NEGATIVE); Color Urine UA YELLOW; Glucose Urine UA NEGATIVE (Negative); Ketones Urine UA TRACE (NEGATIVE); Leukocyte Esterase Urine UA 1+ (NEGATIVE); Nitrite Urine UA POSITIVE (Negative); Occult Blood Urine UA 3+ (Negative); Protein Urine UA 3+ (Negative); Urobilinogen Urine UA 0.2 E.U./dL (0.2)
[2025-01-19 08:54] LABS: Urine Volume 10mL (spun)
[2025-01-19 08:57] LABS: RBC Urine 30-100/HPF (0-5/HPF); WBC Urine 10-30/HPF (0-5/HPF)
[2025-01-19 08:58] LABS: Bacteria Urine Many (>30); Culture Indicated Urine Specimen Cultured; Squamous Epithelial Cell Urine 0-1 /HPF (0-5/HPF)
[2025-01-19] MEDS: cefTRIAXone 1,000 MG in SODIUM CHLORIDE 0.9% 100 ML 200 MG IV (09:31)
== END 2025-01-19 10:17 | disposition home or self-care (01) ==
PROVIDERS: Family Medicine; Emergency Provider Emergency Medicine; Family Provider Family Medicine; PCP Family Medicine
DX: N39.0 Urinary tract infection, site not specified (principal); R10.11 Right upper quadrant pain; Q05.8 Sacral spina bifida without hydrocephalus
CPT/HCPCS: 74177; 80053; 81001; 83690; 85025; 87086; 87186; 96361; 96365; 96375; 99284; J0696; J1171; J1885; Q9967

== ENCOUNTER 2025-02-11 09:16 | Emergency (ER) | payer MEDICARE, MEDICAID, SELFPAY ==
[2022-11-24 15:35] VITALS: BMI 28.8
[2025-02-11] VITALS (23 sets, daily range): BP systolic 147–199; BP diastolic 83–116; PULSE 76–108; RESP 13–20; TEMP 36.6–36.8; O2SAT 91–97; BMI 29.7
[2025-02-11] MEDS: ONDANSETRON 4 MG/2 ML INJ IV ×2 (09:37→15:06)
[2025-02-11] MEDS: MORPHINE 4 MG/ML INJ IV (09:38)
[2025-02-11 09:39] LABS: Add Manual Diff / Slide Review NO; Basophils Absolute Auto 0 /uL (0-100); Basophils Percent Auto 0.3 % (0-2); Eosinophils Absolute Auto 100 /uL (0-450); Eosinophils Percent Auto 1.1 % (2-4); Hematocrit 47.9 % (41-53); Hemoglobin 16.5 g/dL (13.5-17.5); Lymphocytes Absolute Auto 800 /uL (1100-4500); Lymphocytes Percent Auto 8.1 % (25-40); Mean Corpuscular HGB Conc 34.4 % (30-36); Mean Corpuscular Hemoglobin 30.1 PG (26-34); Mean Corpuscular Volume 87.3 fL (80-100); Monocytes Absolute Auto 700 /uL (0-900); Monocytes Percent Auto 6.7 % (3-14); Neutrophils Absolute Auto 8800 /uL (1500-7000); Neutrophils Percent Auto 83.8 % (50-75); Platelet Count 266 X10^3/uL (150-400); Red Blood Cell Count 5.48 X10^6/uL (4.5-5.9); Red Cell Distribution Width 14.9 % (11.6-14.8); White Blood Cell Count 10.5 X10^3/uL (4.5-11.0)
[2025-02-11 09:54] LABS: Alanine Aminotransferase 76 IU/L (<50); Albumin 5.1 g/dL (3.5-5.0); Albumin Globulin Ratio 1.2 (1.0-2.8); Alkaline Phosphatase 79 U/L (38-126); Aspartate Aminotransferase 70 IU/L (17-59); BUN Creatinine Ratio 10.3 (6-22); Bilirubin Total 1.7 mg/dL (0.2-1.3); Blood Urea Nitrogen 8 mg/dL (9-20); Calcium 9.4 mg/dL (8.4-10.2); Carbon Dioxide 19 mmol/L (22-32); Chloride 104 mmol/L (98-107); Estimated Glomerular Filt Rate > 60 mL/min (>60); Globulin 4.3 g/dL (1.7-4.1); Glucose 132 mg/dL (70-99); Lipase 76 U/L (23-300); Sodium 138 mmol/L (137-145); Total Protein 9.4 g/dL (6.3-8.2)
[2025-02-11 09:56] LABS: HEMOLYSIS 213 (0-50)
--- NOTE | 2025-02-11 10:05 | ED_ITS ---
HPI - Abdominal Pain General Chief Complaint: Abdominal Pain Stated Complaint: Lower right side Stomach pain Time Seen by Provider: 02/11/25 09:59 Source: patient Mode of arrival: Wheelchair History of Present Illness HPI narrative: Patient here for right lower quadrant pain worse with movement. Has had nausea and vomiting. This started last night. Patient is seen here January 19 for abdominal pain and was treated for cystitis. He states he got better after a week. But this pain is different. Patient still has his appendix. No urinary complaints. No hematuria. No back pain. No prior history of hernia Related Data Home Medications Medication Instructions Recorded Confirmed tramadol 50 mg tablet 50 mg PO Q6H PRN 10/03/24 11/13/24 gabapentin 300 mg capsule mg PO 3XD 11/13/24 11/13/24 Previous Rx's Medication Instructions Recorded Male Incontinence Briefs #100 ea 08/10/22 Prevail Male Guard #100 ea 08/10/22 amlodipine 2.5 mg tablet 2.5 mg PO BEDTIME #90 tabs 10/02/24 diclofenac potassium 50 mg tablet 50 mg PO TID PRN Pain (Scale Score 10/03/24 4-6) #90 tabs losartan 50 mg tablet 100 mg (2 x 50 mg) PO DAILY #180 10/03/24 tabs triamcinolone acetonide 0.5 % 1 applic topical BID PRN Psoriasis 02/10/25 topical cream #15 grams Allergies Allergy/AdvReac Type Severity Reaction Status Date / Time hydrocodone [From Vicodin] AdvReac Mild Nausea Verified 02/11/25 09:24 Review of Systems Review of Systems Narrative: GENERAL: Negative chills, fatigue, malaise, fever, sweats. HEENT: Negative sinus pain, ear pain, sore throat RESPIRATORY: Negative dyspnea, cough CARDIOVASCULAR: Negative chest pain, palpitations GASTROINTESTINAL: Positive vomiting, nausea, abdominal pain : Negative dysuria, frequency, hematuria MUSCULOSKELETAL: Negative muscle or bony pain SKIN: Negative rash, skin lesions NEUROLOGIC: Negative weakness, numbness ROS Unobtainable: All systems reviewed & are unremarkable except as noted in HPI and below Patient History Medical History Osteomyelitis Chronic wrist pain History of osteomyelitis Callus of foot History of bladder stone Chronic pain of left wrist Hydrocephalus Neurogenic bladder Wheelchair dependent Bladder calculi Gross hematuria Callus Incontinence of urine Hypertension Spina bifida Sacral decubitus ulcer Spina bifida Surgical History Hx of right BKA History of left below knee amputation History of orthopedic surgery (06/16/22) S/P LINE O SCRIBE OPERATOR shunt Family History Mother Hypertension UTI (urinary tract infection) Father No pertinent past medical history Social History marital status: unmarried,single household members: family occupational status: employed Smoking Status: Unknown if ever smoked alcohol intake: current substance use type: marijuana caffeine: No Type(s) of exercise: decline to answer Smoking Status: Unknown if ever smoked alcohol intake frequency: holidays/special occasions only Exam Narrative Exam Narrative: GENERAL: in no distress, not toxic not dyspneic HEAD: Normocephalic. EYES: Pupils equal round ENT: Mucous membranes moist. NECK: Trachea midline. CARDIOVASCULAR: Regular rate and rhythm RESPIRATORY: Clear to auscultation. Breath sounds equal bilaterally. No wheezes, rales, or rhonchi. GASTROINTESTINAL: Abdomen soft, diffuse lower abdominal tenderness. No peritoneal signs. No guarding or rebound. EXTREMITIES: No gross deformities., they are below knee amputations bilaterally BACK: No flank tenderness. NEURO: AOx4. Clear speech SKIN: Warm and dry PSYCH: Not anxious, is cooperative Initial Vital Signs Initial Vital Signs: Vital Signs Temperature 98.0 F 02/11/25 09:18 Pulse Rate 101 H 02/11/25 09:18 Respiratory Rate 13 02/11/25 09:18 Blood Pressure 171/95 H 02/11/25 09:18 Pulse Oximetry 97 02/11/25 09:18 Oxygen Delivery Method Room Air 02/11/25 09:18 Course Orders Ordered: Discontinued Medications Hydromorphone HCl (Hydromorphone 1 Mg Inj) 1 mg IV NOW ONE Stop: 02/11/25 10:04 Last Admin: 02/11/25 10:12 Dose: 1 mg Documented By: NARDA Hydromorphone HCl (Hydromorphone 1 Mg Inj) 1 mg IV Q2H PRN PRN Reason: pain Last Admin: 02/11/25 16:20 Dose: 1 mg Documented By: Admin: 02/11/25 14:10 Dose: 1 mg Documented By: Admin: 02/11/25 11:31 Dose: 1 mg Documented By: NARDA Sodium Chloride (Normal Saline 0.9%) 500 mls @ 1,000 mls/hr IV BOLUS ONE Stop: 02/11/25 10:32 Last Admin: 02/11/25 10:36 Dose: Not Given Documented By: FADY Sodium Chloride (Normal Saline 0.9%) 1,000 mls @ 1,000 mls/hr IV BOLUS ONE Stop: 02/11/25 11:07 Last Infusion: 02/11/25 11:25 Dose: Infused Documented By: Admin: 02/11/25 10:13 Dose: 1,000 mls/hr Documented By: NARDA Ceftriaxone Sodium 2,000 mg/ (Sodium Chloride) 100 mls @ 200 mls/hr IV NOW ONE Stop: 02/11/25 11:25 Last Infusion: 02/11/25 12:04 Dose: Infused Documented By: Admin: 02/11/25 11:32 Dose: 200 mls/hr Documented By: NARDA Ketorolac Tromethamine (Ketorolac 30 Mg/Ml Vial) 15 mg IV NOW ONE Stop: 02/11/25 10:04 Last Admin: 02/11/25 10:12 Dose: 15 mg Documented By: NARDA Morphine Sulfate (Morphine 4 Mg/Ml Inj) 4 mg IV NOW ONE Stop: 02/11/25 09:31 Last Admin: 02/11/25 09:38 Dose: 4 mg Documented By: NARDA Ondansetron HCl (Ondansetron 4 Mg/2 Ml Inj) 4 mg IV NOW PRN PRN Reason: Nausea And Vomiting Last Admin: 02/11/25 09:37 Dose: 4 mg Documented By: NARDA Ondansetron HCl (Ondansetron 4 Mg Odt) 4 mg PO NOW PRN PRN Reason: Nausea And Vomiting Ondansetron HCl (Ondansetron 4 Mg/2 Ml Inj) 4 mg IV NOW ONE Stop: 02/11/25 15:03 Last Admin: 02/11/25 15:06 Dose: 4 mg Documented By: IRVING Prochlorperazine (Prochlorperazine 10 Mg/2 Ml Vial) 10 mg IV NOW ONE Stop: 02/11/25 17:11 Last Admin: 02/11/25 17:15 Dose: 10 mg Documented By: IRVING Vital Signs Vital signs: Vital Signs - 8 hr 02/11/25 09:18 02/11/25 09:36 02/11/25 10:00 Temperature 98.0 F Pulse Rate 101 H 108 H 105 H Respiratory Rate 13 Blood Pressure 171/95 H Pulse Oximetry 97 96 94 Oxygen Delivery Method Room Air Room Air 02/11/25 10:23 02/11/25 10:23 02/11/25 10:30 Temperature Pulse Rate 98 H 95 H Respiratory Rate Blood Pressure 158/96 H Pulse Oximetry 95 95 Oxygen Delivery Method 02/11/25 11:00 02/11/25 11:30 02/11/25 12:00 Temperature Pulse Rate 90 89 88 Respiratory Rate Blood Pressure Pulse Oximetry 93 97 93 Oxygen Delivery Method 02/11/25 12:09 02/11/25 12:09 02/11/25 12:30 Temperature Pulse Rate 87 86 Respiratory Rate Blood Pressure 147/83 H Pulse Oximetry 94 91 Oxygen Delivery Method 02/11/25 12:30 02/11/25 13:00 02/11/25 13:00 Temperature Pulse Rate 87 Respiratory Rate Blood Pressure 152/98 H 152/88 H Pulse Oximetry 93 Oxygen Delivery Method 02/11/25 13:30 02/11/25 13:30 02/11/25 14:00 Temperature Pulse Rate 84 83 Respiratory Rate 18 Blood Pressure 147/83 H Pulse Oximetry 94 Oxygen Delivery Method 02/11/25 14:00 02/11/25 14:30 02/11/25 14:30 Temperature Pulse Rate 76 Respiratory Rate Blood Pressure 158/92 H 159/90 H Pulse Oximetry Oxygen Delivery Method 02/11/25 15:00 02/11/25 15:00 Temperature Pulse Rate 87 Respiratory Rate 20 Blood Pressure 160/106 H Pulse Oximetry 94 96 Oxygen Delivery Method MDM - Abdominal Pain Lab Data 02/11/25 09:28 02/11/25 11:20 Labs: Lab Results 02/11/25 02/11/25 02/11/25 Range/Units 09:28 11:20 11:58 WBC 10.5 (4.5-11.0) X10^3/uL RBC 5.48 (4.5-5.9) X10^6/uL Hgb 16.5 (13.5-17.5) g/dL Hct 47.9 (41-53) % MCV 87.3 (80-100) fL MCH 30.1 (26-34) PG MCHC 34.4 (30-36) % RDW 14.9 H (11.6-14.8) % Plt Count 266 (150-400) X10^3/uL Neut % (Auto) 83.8 H (50-75) % Lymph % (Auto) 8.1 L (25-40) % [place] % (Auto) 6.7 (3-14) % Eos % (Auto) 1.1 L (2-4) % Baso % (Auto) 0.3 (0-2) % Neut # (Auto) 8800 H (6863-7804) /uL Lymph # (Auto) 800 L (3303-8740) /uL [place] # (Auto) 700 (0-900) /uL Eos # (Auto) 100 (0-450) /uL Baso # (Auto) 0 (0-100) /uL Sodium 138 138 (137-145) mmol/L Potassium 6.0 H 4.3 D (3.4-5.1) mmol/L Chloride 104 105 (98-107) mmol/L Carbon Dioxide 19 L 20 L (22-32) mmol/L BUN 8 L 8 L (9-20) mg/dL Creatinine 0.78 0.74 (0.66-1.25) mg/dL Estimated GFR > 60 > 60 (>60) mL/min BUN/Creatinine Ratio 10.3 10.8 (6-22) Glucose 132 H 112 H (70-99) mg/dL Calcium 9.4 8.7 (8.4-10.2) mg/dL Total Bilirubin 1.7 H (0.2-1.3) mg/dL AST 70 H (17-59) IU/L ALT 76 H (<50) IU/L Alkaline Phosphatase 79 (38-126) U/L Total Protein 9.4 H (6.3-8.2) g/dL Albumin 5.1 H (3.5-5.0) g/dL Globulin 4.3 H (1.7-4.1) g/dL Albumin/Globulin Ratio 1.2 (1.0-2.8) Lipase 76 (23-300) U/L Urine RBC 1-5/hpf D (0-5/HPF) Urine WBC 5-10/hpf H (0-5/HPF) Ur Squamous Epith Cells None seen (0-5/HPF) Urine Bacteria None seen (None) Ur Culture Indicated? Specimen cultured Vol Urine Centrifuged 10ml (spun) Point of care testing: Urine Dip Bedside Urine Glucose Negative Bedside Urine Bilirubin - Negative Bedside Urine Ketone - Negative Urine Specific [place] 1.000 Bedside Urine Occult Blood + Bedside Urine pH 8.5 Bedside Urine Protein + 30 Bedside Urine Urobilinogen - Negative Bedside Urine Nitrite - Negative Bedside Urine Leukocytes + [address] scan - abdomen/pelvis: Radiologist's Impression: [address] [address] [address] Scan Report Signed Patient: Amaury Robertson MR#: [id number] : 1980 Acct:[id number] Age/Sex: 44 / M Date of Service: 02/11/25 Loc: ED Accession Number: [id number] Procedure: CT abdomen pelvis w con Ordering Provider: Dave Davenport MD PROCEDURE: CT ABDOMEN PELVIS W CON INDICATIONS: right lower quadrant pain TECHNIQUE: After the administration of intravenous contrast, axial sections acquired from the lung bases to the pubic symphysis. Coronal and sagittal reformats were performed. For radiation dose reduction, the following was used: automated exposure control, adjustment of mA and/or kV according to patient size. COMPARISON: [facility], CT, CT ABDOMEN PELVIS W CON, 01/19/2025, 8:22. FINDINGS: Image quality: Diagnostic. Lower Chest: No significant findings. ABDOMEN: Liver: No solid mass. Hepatic steatosis peer Gallbladder: No radiopaque gallstones or wall thickening. Biliary ducts: No biliary dilation. Pancreas: No ductal dilation. Spleen: Size is within normal limits. Adrenal Glands: No adrenal nodules. Kidneys and Ureters: Mild wall thickening of the ureters and renal collecting systems. No hydronephrosis. No solid mass. No complex renal cystic lesion which requires follow up. Stomach and Bowel: Normal colonic caliber, without significant wall thickening. Diverticulosis without evidence of acute diverticulitis. Normal appendix. Peritoneum: Small free fluid within the pelvis. LINE O SCRIBE OPERATOR shunt catheter terminating within the pelvis.. No free air. Ventral Wall: No significant ventral hernia. Abdominal Nodes: No retroperitoneal or mesenteric adenopathy by size criteria. Vessels: Aorta and inferior vena cava are normal in size. PELVIS: Pelvic Organs: Coarse calcification within the prostate. Bladder: Diffuse urinary bladder wall thickening. Pelvic Nodes: No enlarged lymph nodes. Miscellaneous: No inguinal hernias are seen subcutaneous stranding of the bilateral buttocks without soft tissue defect.. Bones: No aggressive osseous abnormality. Sacral spinal dysraphism. Bilateral L5 pars defects. IMPRESSION: 1. Diffuse urinary bladder wall thickening. Mild wall thickening of the ureters and renal collecting systems. Findings are concerning for infection. 2. LINE O SCRIBE OPERATOR shunt in place with small volume free fluid within the pelvis with some possible mild loculation. Fat stranding in the pelvis appears similar to prior but not seen on prior from 03/17/2024, infection is in the differential. 3. Normal appendix. 4. Mild hepatic steatosis. 5. Subcutaneous stranding/soft tissue thickening involving the bilateral buttocks region left greater than right adjacent to the ischial bones. No skin defect is seen. Findings are concerning for developing decubitus ulcers. Recommend correlation with physical exam. Dictated by: Ernesto Nguyễn M.D. on 02/11/2025 at 10:29 Approved by: Ernesto Nguyễn M.D. on 02/11/2025 at 10:43 [facility] Narrative Medical decision making narrative: Patient here for right lower quadrant pain worse with movement. Has had nausea and vomiting. This started last night. Patient is seen here January 19 for abdominal pain and was treated for cystitis. He states he got better after a week. But this pain is different. Patient still has his appendix. No urinary complaints. No hematuria. No back pain. No prior history of hernia After history and exam, CBC CMP urinalysis CT abdomen pelvis Dilaudid morphine Toradol Zofran normal saline [facility] Medical records reviewed: ER visit and CT scan imaging January 19, 2025 here at this facility Differential considered: Includes but not limited to Lab Test results independently reviewed as above. Pertinent findings: WBC 10.5 sodium 138 potassium 6.0 bicarb 19 BUN 8 creatinine 0.78 GFR greater than 60 glucose 132 AST 70 ALT 76 total bilirubin 1.7 Independently reviewed EKG none indicated at this time Imaging studies independently reviewed: CT abdomen pelvis, concerning for worsening cystitis, spreading to the ureters bilaterally, concerning for infection with the LINE O SCRIBE OPERATOR shunt Consultations: 12:30 p.m.. I spoke with [facility] Neurosurgery Dr. Alfonso, he did the surgery on patient. At this time he is concerned about possible infection as well. However no headache or meningeal signs yet. They can not accept patient at this time due to bed capacity. We will need to transfer to another facility. Patient has no headache. No meningeal signs 2:48 p.m.. Spoke with [facility] neurosurgery Dr. Michele, he will be happy to accept patient however there is no beds at this time. They will call us back if there is a bed available. However continuing antibiotics is good treatment plan at this time and best for the patient. May need changing out the distal portion of the shunt after IV antibiotics. Patient has no headache. No meningeal signs 2:53 p.m.. Spoke with [facility], Dr. Anders, who will accept patient. Hospitalist to admit. Transfer center will call us back with the hospitalist to admit patient. Patient has no headache no meningeal signs at this time. 3:19 p.m.. I spoke with [facility] hospitalist Dr. Knight, she will accept patient. Again no headache no meningeal signs at this time. Re-evaluations: 11:21 a.m.. Updated patient results, CT concerning for worsening infection. Patient states he had revision of his LINE O SCRIBE OPERATOR shunt about 8 months ago at [facility] and [facility]. I informed him that there is concern for LINE O SCRIBE OPERATOR shunt infection. We will need to transfer him today, preferably back to [facility]. Otherwise may be [facility] or [place]. No complaints of headache Discussion: Appropriate for transfer for higher level of care. Patient needs Neurosurgery to evaluate for the LINE O SCRIBE OPERATOR shunt infection. Antibiotics have been started. Blood cultures completed. Patient is cystitis may be worsening and compromising patient's LINE O SCRIBE OPERATOR shunt. Diagnosis: Cystitis Discharge Plan Departure Patient Disposition: [facility] Clinical Impression: Cystitis Prescriptions: No Action (DME) Prevail Male Guard See Rx Instructions .Route .MEDSUPPLY Qty: 100 12RF Rx Instructions: As directed (DME) Male Incontinence Briefs Medium See Rx Instructions .Route .MEDSUPPLY Qty: 100 12RF Rx Instructions: As directed amlodipine 2.5 mg tablet 2.5 mg PO BEDTIME Qty: 90 3RF Rx Instructions: take dinner/bedtime losartan 50 mg tablet 100 mg PO DAILY Qty: 180 3RF Rx Instructions: take in the AM diclofenac potassium 50 mg tablet 50 mg PO TID PRN (Reason: Pain (Scale Score 4-6)) Qty: 90 1RF Rx Instructions: TAKE 1 TABLET BY MOUTH THREE TIMES DAILY NEEDED FOR PAIN triamcinolone acetonide 0.5 % cream 1 applic topical BID PRN (Reason: Psoriasis) Qty: 15 1RF tramadol 50 mg tablet 50 mg PO Q6H PRN gabapentin 300 mg capsule PO 3XD Referrals: Yair Garcia, [Primary Care Provider] -
[2025-02-11] MEDS: KETOROLAC 30 MG/ML VIAL 15 MG IV (10:12)
[2025-02-11] MEDS: HYDROMORPHONE 1 MG INJ IV ×4 (10:12→16:20)
[2025-02-11] MEDS: SODIUM CHLORIDE 0.9% 1,000 ML 1000 ML IV (10:13)
[2025-02-11] MEDS: cefTRIAXone 2,000 MG in SODIUM CHLORIDE 0.9% 100 ML 200 MG IV (11:32)
[2025-02-11 11:54] LABS: BUN Creatinine Ratio 10.8 (6-22); Blood Urea Nitrogen 8 mg/dL (9-20); Calcium 8.7 mg/dL (8.4-10.2); Carbon Dioxide 20 mmol/L (22-32); Chloride 105 mmol/L (98-107); Estimated Glomerular Filt Rate > 60 mL/min (>60); Glucose 112 mg/dL (70-99); HEMOLYSIS 22 (0-50); Potassium 4.3 mmol/L (3.4-5.1); Sodium 138 mmol/L (137-145)
[2025-02-11 12:30] LABS: Urine Volume 10mL (spun)
[2025-02-11 12:32] LABS: Bacteria Urine None Seen; Culture Indicated Urine Specimen Cultured; RBC Urine 1-5/HPF (0-5/HPF); Squamous Epithelial Cell Urine None Seen (0-5/HPF); WBC Urine 5-10/HPF (0-5/HPF)
--- NOTE | 2025-02-11 15:07 | PC.NURSE ---
PT started vomiting the water that he was given. Zofran given
[2025-02-11] MEDS: PROCHLORPERAZINE 10 MG/2 ML VIAL IV (17:15)
--- NOTE | 2025-02-11 17:23 | PC.NURSE ---
Pt vomitng again. Dr Davenport aware. Pt denies headache. Order for Compazine received. Pt given Aminah Umu.
--- NOTE | 2025-02-11 17:53 | PC.NURSE ---
Vomiting stopped, pt is resting
== END 2025-02-11 18:06 | disposition short-term general hospital (02) ==
PROVIDERS: Emergency Provider Emergency Medicine; Family Provider Family Medicine; PCP Family Medicine
DX: N30.90 Cystitis, unspecified without hematuria (principal); R11.2 Nausea with vomiting, unspecified; Z98.2 Presence of cerebrospinal fluid drainage device
CPT/HCPCS: 36415; 74177; 80048; 80053; 81003; 81015; 83690; 85025; 87040; 87077; 87086; 87186; 96361; 96365; 96375; 96376; 99284; J0696; J0780; J1171; J1885; J2270; J2405; Q9967

== ENCOUNTER → 2025-02-20 09:54 | Outpatient (CLI) | payer MEDICARE, MEDICAID, SELFPAY ==
[2025-02-17 13:30] VITALS: BMI 28.8
--- NOTE | 2025-02-20 09:57 | DI.RAD.S_ITS ---
PROCEDURE: XR KUB INDICATIONS: kidney stones TECHNIQUE: One view of the abdomen acquired. COMPARISON: [facility], CT, CT ABDOMEN PELVIS W CON, 02/11/2025, 10:11. [facility], CR, XR KUB, 07/04/2023, 10:30. FINDINGS: Surgical changes and devices: To me is present overlying the right hemiabdomen and pelvis most consistent with PESTICIDE CONTROL INSPECTOR shunt. Bowel: Bowel gas pattern is normal. Soft tissues: No suspicious abdominal calcifications. Renal shadows are significantly obscured secondary to overlying colonic stool. Visualized solid organ contours appear normal in size. Bones: No suspicious bony lesions. IMPRESSION: No definitive calcifications overlying the renal shadows although obscured enlarged part secondary to colonic stool. Dictated by: Leela Monroe M.D. on 02/20/2025 at 12:49 Approved by: Leela Monroe M.D. on 02/20/2025 at 12:50
== END ==
PROVIDERS: Family Provider Family Medicine; PCP Family Medicine; Referring Provider Urology; Visit Provider Urology
DX: N30.90 Cystitis, unspecified without hematuria (principal); N21.0 Calculus in bladder
CPT/HCPCS: 74018; 81001

== ENCOUNTER → 2025-02-20 11:11 | Outpatient (CLI) | payer MEDICARE, MEDICAID, OTHER, SELFPAY ==
[2025-02-17 13:30] VITALS: BMI 28.8
[2025-02-20 12:18] LABS: Appearance Urine UA CLEAR; Bilirubin Urine UA NEGATIVE (NEGATIVE); Color Urine UA YELLOW; Glucose Urine UA NEGATIVE (Negative); Ketones Urine UA NEGATIVE (NEGATIVE); Leukocyte Esterase Urine UA TRACE (NEGATIVE); Nitrite Urine UA NEGATIVE (Negative); Occult Blood Urine UA NEGATIVE (Negative); Protein Urine UA NEGATIVE (Negative); Specific Gravity Urine UA <=1.005 (1.000-1.035); Urobilinogen Urine UA 0.2 E.U./dL (0.2); pH Urine UA 6.5 (4.5-8.0)
[2025-02-20 12:42] LABS: Urine Volume 10mL (spun)
[2025-02-20 12:43] LABS: Bacteria Urine None Seen; Culture Indicated Urine Cult Not Indicated; RBC Urine None Seen (0-5/HPF); Squamous Epithelial Cell Urine 1-5 /HPF (0-5/HPF); WBC Urine 1-5/HPF (0-5/HPF)
== END ==
LOC: LAB 11:16
PROVIDERS: Family Provider Family Medicine; PCP Family Medicine; Referring Provider Family Medicine; Visit Provider Family Medicine
DX: N30.90 Cystitis, unspecified without hematuria (principal)
CPT/HCPCS: 81001

== ENCOUNTER → 2025-03-19 10:02 | Outpatient (CLI) | payer MEDICARE, MEDICAID, SELFPAY ==
[2025-02-17 13:30] VITALS: BMI 28.8
== END ==
PROVIDERS: PCP Family Medicine; Visit Provider Urology
DX: N31.9 Neuromuscular dysfunction of bladder, unspecified (principal); R39.9 Unspecified symptoms and signs involving the genitourinary system
CPT/HCPCS: 87086

== ENCOUNTER 2025-05-07 08:14 | Emergency (ER) | payer MEDICARE, MEDICAID, SELFPAY ==
[2025-02-17 13:30] VITALS: BMI 28.8
[2025-05-07] VITALS (15 sets, daily range): BP systolic 131–172; BP diastolic 83–111; PULSE 58–97; RESP 12–35; TEMP 36.3; O2SAT 94–99
--- NOTE | 2025-05-07 08:16 | DI.RAD.S_ITS ---
PROCEDURE: XR CHEST 1V INDICATIONS: Chest Pain TECHNIQUE: One view of the chest was acquired. COMPARISON: , CR, XR CHEST 1V, 08/02/2024, 11:59. FINDINGS: Surgical changes and devices: SUSTAINABLE LANDSCAPE ARCHITECT shunt Lungs and pleura: Lungs are clear. No pleural effusions or pneumothorax. Mediastinum: Mediastinal contours appear normal. Heart size is normal. Bones and chest wall: No suspicious bony lesions. Overlying soft tissues appear unremarkable. IMPRESSION: No acute cardiopulmonary abnormality is seen. Dictated by: Peterson Lema M.D. on 05/07/2025 at 8:46 Approved by: Peterson Lema M.D. on 05/07/2025 at 8:46
--- NOTE | 2025-05-07 08:16 | EKG_ITS ---
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
--- NOTE | 2025-05-07 08:27 | ED.CHESTPAIN ---
HPI - Chest Pain General Chief Complaint: Chest Pain Stated Complaint: Pain on left side of chest x 1 day Time Seen by Provider: 05/07/25 08:19 History of Present Illness HPI narrative: 44-year-old gentleman with a history of hypertension, spina bifida with bilateral below-knee amputations presents with left-sided chest pain through the entire left thorax and into the left upper quadrant hurting more with a deep breath reproducible with palpation since last night. The pain was significant enough that he did have some vomiting. Describes it initially as an 8/10, never had similar pain before. No fevers, cough, chills recently Related Data Home Medications ?Medication ?Instructions ?Recorded ?Confirmed polyethylene glycol 3350 17 17 g PO DAILY PRN constipation 02/20/25 04/27/25 gram/dose oral powder amlodipine 2.5 mg tablet 2.5 mg PO DAILY 04/27/25 04/27/25 Previous Rx's ?Medication ?Instructions ?Recorded Male Incontinence Briefs #100 ea 08/10/22 Prevail Male Guard #100 ea 08/10/22 diclofenac potassium 50 mg tablet 50 mg PO TID PRN Pain (Scale Score 10/03/24 4-6) #90 tabs losartan 50 mg tablet 100 mg (2 x 50 mg) PO DAILY #180 10/03/24 tabs triamcinolone acetonide 0.5 % 1 applic topical BID PRN Psoriasis 02/10/25 topical cream #15 grams oxycodone-acetaminophen 5 mg-325 1 tab PO Q6H PRN pain #14 tabs 05/07/25 mg tablet Allergies Allergy/AdvReac Type Severity Reaction Status Date / Time hydrocodone (From Vicodin) AdvReac Mild Nausea Verified 04/27/25 13:52 Review of Systems Review of Systems Narrative: Pertinent positive and negative findings as per HPI Patient History Medical History Abnormal computed tomography of bladder Irritable bowel disease Unspecified atherosclerosis of nonautologous biological bypass graft(s) of the extremities, right leg Cerebral palsy, unspecified Paraplegia, unspecified Cannabis dependence, uncomplicated Osteomyelitis Chronic wrist pain History of osteomyelitis Callus of foot History of bladder stone Chronic pain of left wrist Hydrocephalus Neurogenic bladder Wheelchair dependent Bladder calculi Gross hematuria Callus Incontinence of urine Hypertension Spina bifida Sacral decubitus ulcer Spina bifida Surgical History Hx of right BKA History of left below knee amputation History of orthopedic surgery (06/16/22) S/P HYDRAULIC SPINNER shunt Family History Mother Hypertension UTI (urinary tract infection) Father No pertinent past medical history Social History marital status: unmarried,single household members: family occupational status: employed alcohol intake: current substance use type: marijuana caffeine: No Type(s) of exercise: decline to answer alcohol intake frequency: holidays/special occasions only Exam Initial Vital Signs Initial Vital Signs: Vital Signs Pulse Rate 96 H 05/07/25 08:21 Respiratory Rate 19 05/07/25 08:21 Pulse Oximetry 98 05/07/25 08:21 General: No acute distress, able to cooperate with exam HEENT: Moist mucous membranes, normal sclera with reactive pupils, Neck: No JVD, supple Respiratory: Lungs are clear to auscultation, no wheezing no rales no rhonchi. Full and symmetrical air movement Cardiac: Regular rate and rhythm no murmurs no bruits Chest: Tenderness with palpation along the left chest wall mid axillary line Abdomen: Soft, mild overall distention, tender in the left upper quadrant Skin: Warm and dry, no rashes Neurologic: Spina bifida with functional paralysis, wheelchair-bound, minimal sensation in lower extremities he is at his current baseline neurologic status Extremities: Upper extremities unremarkable, lower extremities are removed Psych: Cooperative, appropriate insight and affect Course Orders Ordered: ED Orders 05/07/25 08:16 XR chest 1V Stat EKG-12 Lead Stat 05/07/25 08:33 Complete Blood Count AUTO DIFF Stat Comprehensive Metabolic Panel Stat Lipase Stat Lipase Stat Magnesium Stat NT-proBNP (BNP-Adult 18+) Stat PTT Partial Thromboplastin Florentino Stat Prothrombin Time INR Stat Troponin & CK Cardiac Panel Stat 05/07/25 08:52 CT abdomen pelvis w con Stat 05/07/25 11:54 CT angio chest Stat Hydromorphone HCl (Hydromorphone Hcl 0.5 Mg/0.5 Ml Syringe) 0.5 mg IV Q15MIN PRN PRN Reason: Pain, Last Admin: 07/24/25 11:38 Dose: 0.5 mg Documented By: Admin: 05/07/25 10:56 Dose: 0.5 mg Documented By: Admin: 05/07/25 09:53 Dose: 0.5 mg Documented By: Admin: 05/07/25 09:22 Dose: 0.5 mg Documented By: Admin: 05/07/25 08:55 Dose: 0.5 mg Documented By: CTS Morphine Sulfate (Morphine 2 Mg/Ml Inj) 2 mg IV Q5MIN PRN PRN Reason: Chest Pain Last Admin: 05/07/25 08:50 Dose: 2 mg Documented By: Admin: 05/07/25 08:45 Dose: 2 mg Documented By: Admin: 05/07/25 08:38 Dose: 2 mg Documented By: CTS Nitroglycerin (Nitroglycerin 0.4 Mg Sl Tab) 0.4 mg SL [id number] PRN PRN Reason: Chest Pain Last Admin: 05/07/25 08:40 Dose: 0.4 mg Documented By: CTS Discontinued Medications Aspirin (Aspirin 81 Mg Chew Tab) 324 mg PO NOW ONE Stop: 05/07/25 08:17 Last Admin: 05/07/25 08:38 Dose: 324 mg Documented By: CTS Aspirin (Aspirin 81 Mg Chew Tab) 324 mg PO NOW ONE Stop: 05/07/25 08:25 Last Admin: 05/07/25 08:39 Dose: Not Given Documented By: CTS Sodium Chloride (Normal Saline 0.9%) 1,000 mls @ 1,000 mls/hr IV BOLUS ONE Stop: 05/07/25 09:23 Last Infusion: 05/07/25 10:57 Dose: Infused Documented By: Admin: 05/07/25 08:39 Dose: 1,000 mls/hr Documented By: CTS Ondansetron HCl (Ondansetron 4 Mg/2 Ml Inj) 4 mg IV NOW ONE Stop: 05/07/25 08:56 Last Admin: 05/07/25 08:58 Dose: 4 mg Documented By: CTS Vital Signs Vital signs: Vital Signs - 8 hr 05/07/25 08:21 05/07/25 08:22 05/07/25 08:22 Temperature 97.4 F L Pulse Rate 96 H 97 H 95 H Respiratory Rate 19 16 22 Blood Pressure 172/111 H Pulse Oximetry 98 99 98 Oxygen Delivery Method Room Air 05/07/25 08:22 05/07/25 08:30 05/07/25 08:30 Temperature Pulse Rate 90 Respiratory Rate 27 H Blood Pressure 172/111 H 171/98 H Pulse Oximetry 96 Oxygen Delivery Method 05/07/25 08:40 05/07/25 08:56 05/07/25 08:56 Temperature Pulse Rate 80 95 H Respiratory Rate 35 H Blood Pressure 171/88 H 132/87 Pulse Oximetry 96 Oxygen Delivery Method 05/07/25 09:08 05/07/25 09:09 05/07/25 09:09 Temperature Pulse Rate 82 82 Respiratory Rate 17 Blood Pressure 154/88 H Pulse Oximetry 98 97 Oxygen Delivery Method 05/07/25 09:30 05/07/25 09:30 05/07/25 10:00 Temperature Pulse Rate 77 Respiratory Rate 12 Blood Pressure 133/83 131/84 Pulse Oximetry 96 Oxygen Delivery Method 05/07/25 10:00 05/07/25 10:30 05/07/25 10:30 Temperature Pulse Rate 69 58 L Respiratory Rate 19 15 Blood Pressure 138/87 Pulse Oximetry 94 96 Oxygen Delivery Method 05/07/25 11:00 05/07/25 11:00 05/07/25 11:30 Temperature Pulse Rate 66 Respiratory Rate 18 Blood Pressure 155/90 H 144/90 H Pulse Oximetry 97 Oxygen Delivery Method 05/07/25 11:30 Temperature Pulse Rate 66 Respiratory Rate 20 Blood Pressure Pulse Oximetry 96 Oxygen Delivery Method MDM - Chest Pain Lab Data 05/07/25 08:33 05/07/25 08:33 Labs: Lab Results 05/07/25 05/07/25 Range/Units 08:33 08:33 WBC 10.8 (4.5-11.0) X10^3/uL RBC 5.09 (4.5-5.9) X10^6/uL Hgb 15.4 (13.5-17.5) g/dL Hct 44.3 (41-53) % MCV 87.1 (80-100) fL MCH 30.3 (26-34) PG MCHC 34.8 (30-36) % RDW 16.3 H (11.6-14.8) % Plt Count 275 (150-400) X10^3/uL Neut % (Auto) 74.2 (50-75) % Lymph % (Auto) 16.5 L (25-40) % [place] % (Auto) 7.4 (3-14) % Eos % (Auto) 1.3 L (2-4) % Baso % (Auto) 0.6 (0-2) % Neut # (Auto) 8000 H (0856-1002) /uL Lymph # (Auto) 1800 (2728-8395) /uL [place] # (Auto) 800 (0-900) /uL Eos # (Auto) 100 (0-450) /uL Baso # (Auto) 100 (0-100) /uL PT 11.9 (9.4-12.5) SECONDS INR 1.1 (0.9-1.3) APTT 30 (25.1-36.5) SECONDS Sodium 136 L (137-145) mmol/L Potassium 3.9 (3.4-5.1) mmol/L Chloride 104 (98-107) mmol/L Carbon Dioxide 18 L (22-32) mmol/L BUN 12 (9-20) mg/dL Creatinine 0.94 (0.66-1.25) mg/dL Estimated GFR > 60 (>60) mL/min BUN/Creatinine Ratio 12.8 (6-22) Glucose 125 H (70-99) mg/dL Calcium 10.0 (8.4-10.2) mg/dL Magnesium 1.6 (1.6-2.3) mg/dL Total Bilirubin 2.2 H (0.2-1.3) mg/dL AST 24 (17-59) IU/L ALT 50 H (<50) IU/L Alkaline Phosphatase 88 (38-126) U/L Total Creatine Kinase 148 (55-170) U/L Troponin I < 0.012 (0.01-0.034) ng/mL NT-Pro-B Natriuret Pep < 20 (<125) pg/mL Total Protein 8.6 H (6.3-8.2) g/dL Albumin 4.8 (3.5-5.0) g/dL Globulin 3.8 (1.7-4.1) g/dL Albumin/Globulin Ratio 1.3 (1.0-2.8) Lipase 93 93 (23-300) U/L Imaging Data CT scan - abdomen/pelvis: Radiologist's Impression: PROCEDURE: CT ABDOMEN PELVIS W CON INDICATIONS: LUQ pain TECHNIQUE: After the administration of intravenous contrast, axial sections acquired from the lung bases to the pubic symphysis. Coronal and sagittal reformats were performed. For radiation dose reduction, the following was used: automated exposure control, adjustment of mA and/or kV according to patient size. COMPARISON: [facility], CT, CT ABDOMEN PELVIS W CON, 01/19/2025, 8:22. [facility], CR, XR KUB, 02/20/2025, 9:55. [facility], CR, XR CHEST 1V, 05/07/2025, 8:14. [facility], CT, CT ABDOMEN PELVIS W CON, 02/11/2025, 10:11. FINDINGS: Image quality: Diagnostic. Lower Chest: No significant findings. ABDOMEN: Liver: No solid mass. Gallbladder: No radiopaque gallstones or wall thickening. Biliary ducts: No biliary dilation. Pancreas: No ductal dilation. Spleen: Size is within normal limits. Adrenal Glands: No adrenal nodules. Kidneys and Ureters: No hydronephrosis. No solid mass. No complex renal cystic lesion which requires follow up. Stomach and Bowel: Normal colonic caliber, without significant wall thickening. There is a narrowed segment of the proximal sigmoid which is unremarkable on the 2 previous recent studies, consistent with active peristalsis. Reference axial image 126 of series 2. No suspicious colonic lesions are noted. Normal appendix. Peritoneum: No abnormal intraperitoneal fluid. No free air. HYDRAULIC SPINNER shunt. Ventral Wall: No significant ventral hernia. Abdominal Nodes: No retroperitoneal or mesenteric adenopathy by size criteria. Vessels: Aorta and inferior vena cava are normal in size. PELVIS: Pelvic Organs: Unremarkable. Bladder: Bladder wall thickening. Ureters no longer have thickened enhancing jarrett. Pelvic Nodes: No enlarged lymph nodes. Miscellaneous: No inguinal hernias are seen. Evidence of previous bilateral sacral decubitus ulcers. There is associated thickening of the normal fatty tissues. No active ulceration with skin opening is identified by CT. Bones: No aggressive osseous abnormality. Spinal dysraphism. 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 There is also canal stenosis at L3-L4, with disc bulge and short pedicles. IMPRESSION: 1. Continued bladder wall thickening with resolution of ureteral wall thickening and enhancement. 2. Findings likely indicate bilateral healed sacral decubitus ulcers. However, recommend correlation with physical inspection. 3. Spinal dysraphism. 4. Multilevel canal stenosis as described above. Dictated by: Peterson Leam M.D. on 05/07/2025 at 9:25 CT scan - chest: Radiologist's Impression: PROCEDURE: CT ANGIO CHEST INDICATIONS: severe Left chest pain and LUQ pain. ? dissection TECHNIQUE: After the administration of intravenous contrast, 2 mm thick sections acquired from the pulmonary apices to the posterior costophrenic angles. 3-dimensional maximum intensity projection (MIP) coronal and sagittal reformats were then acquired through the thorax. For radiation dose reduction, the following was used: automated exposure control, adjustment of mA and/or kV according to patient size. COMPARISON: [facility], , XR CHEST 1V, 05/07/2025, 8:14. FINDINGS: Image quality: Diagnostic. Pulmonary arteries: Pulmonary arteries are normal in size, and demonstrate no intraluminal filling defects to suggest central pulmonary embolism. Lower Neck: No enlarged lymph nodes. Thyroid: No thyroid nodules which require sonographic follow up, per consensus guidelines. Axillae: No enlarged lymph nodes. Chest Wall: Unremarkable. Bones: Unremarkable. Lungs and Pleura: No pneumothorax or pleural effusions. No suspicious nodules. Note is made of mild alveolar consolidation at the posterior left lower lobe extending into the costophrenic sulcus and abutting the posterior border of the left diaphragm. Heart: Heart size is normal. No pericardial effusion. Thoracic Vessels: No aortic aneurysm. Mediastinum and Ruth: No enlarged lymph nodes. Esophagus: No wall thickening. No hiatal hernia. Upper Abdomen: Visualized upper abdomen solid organs and bowel loops appear normal. IMPRESSION: No pulmonary embolus. Mild alveolar consolidation at the posterior left lower lobe extending into the costophrenic sulcus to the degree that mild or early pneumonia should be considered. No associated pleural effusion is found. No alternative source of left-sided chest and upper abdominal pain is seen. Dictated by: Amarjit Orona M.D. on 05/07/2025 at 12:42 MDM Narrative Medical decision making narrative: CC: Left-sided chest pain since last night Complicating co-morbidities: Hypertension, functional paresthesias secondary the spina bifida, wheelchair used Data collected from: patient Medical records reviewed: Primary care notes reviewed Differential considered: Pneumothorax, pneumomediastinum, acute coronary syndrome, pancreatitis, pneumonia Exam documented above, pertinent findings include: Reproducible left-sided and left upper quadrant chest pain without skin findings, no subcutaneous air, heart and lungs are benign. Neurologic exam is at baseline Lab Test results independently reviewed as above. Pertinent findings: A CBC is unremarkable Chemistries are reassuring Liver studies show slightly elevated bilirubin at 2.2 most recently checked was at 1.7. AST and ALT are down slightly from January of this year. Independently reviewed EKG: Sinus rhythm at a rate of 96, no acute ischemic changes Imaging studies independently reviewed: Chest x-ray is unremarkable CT scan of the abdomen and pelvis has chronic findings with nothing to correlate with acute pain today CT of the chest is equally unrevealing with no dissection and no pulmonary embolism. Treatments: Nitroglycerin, morphine, Dilaudid, aspirin ondansetron Re-evaluations: 1150 patient is still in significant pain still through the upper left side of the chest. With workup unremarkable, dissection remains a possibility. Will do a CT angiogram of the chest. Discussion: 44-year-old gentleman severe left-sided chest pain uncertain etiology. CT scans of the chest, abdomen pelvis show no evidence of acute coronary syndrome, dissection, pneumonia, pancreatitis, intra-abdominal pathology or obstruction. Pain was quite difficult to control initially he is feeling better. We did try a GI cocktail to see if that might influence things. Initially it did seem to help however then it made him vomit. The double exposure to the lidocaine did actually seemed to make a bit of difference. Pain is better at this point, nausea is controlled. Have no reason for hospital admission or further workup at this time. I am going to give him a small prescription for Percocet should pain recur. All findings reviewed in detail with him. Questions are answered and he is safe for discharge Discharge Plan Departure Patient Disposition: Home Clinical Impression: Left-sided chest pain Instructions: DI for Atypical Chest Pain Activity Restrictions/Additional Instructions: Thank you for coming in today I do not have an explanation for the severe left-sided pain that you have been experiencing. We did CT scans of your chest that shows normal lungs, normal blood vessels, your heart shape and size looks reassuring. With blood tests and EKGs of your heart there was no sign of acute heart attack. We did a CT scan of your abdomen does not show any significant abnormalities that might be contributing to this pain. Possibility remains of the pain could be related to your esophagus. If that in fact is the case, using [id number] omeprazole or Tums or Maalox maybe helpful in trying to figure out if you have any relief from this With all of the studies being normal, I believe it is safe to simply cover up the pain for the time being. I have given you a small prescription for oxycodone. This is a narcotic and will cause constipation please make sure you are using a stool softener. I would recommend you schedule follow up appointment with your primary care physician to discuss today's episode Prescriptions: New oxycodone-acetaminophen 5-325 mg tablet 1 tab PO Q6H PRN (Reason: pain) Qty: 14 0RF No Action (DME) Prevail Male Guard See Rx Instructions .Route .MEDSUPPLY Qty: 100 12RF Rx Instructions: As directed (DME) Male Incontinence Briefs Medium See Rx Instructions .Route .MEDSUPPLY Qty: 100 12RF Rx Instructions: As directed losartan 50 mg tablet 100 mg PO DAILY Qty: 180 3RF Rx Instructions: take in the AM diclofenac potassium 50 mg tablet 50 mg PO TID PRN (Reason: Pain (Scale Score 4-6)) Qty: 90 1RF Rx Instructions: TAKE 1 TABLET BY MOUTH THREE TIMES DAILY NEEDED FOR PAIN triamcinolone acetonide 0.5 % cream 1 applic topical BID PRN (Reason: Psoriasis) Qty: 15 1RF polyethylene glycol 3350 17 gram/dose powder 17 g PO DAILY PRN (Reason: constipation) amlodipine 2.5 mg tablet 2.5 mg PO DAILY Referrals: Yair Garcia, [Primary Care Provider, Family Practice] Stand Alone Forms: Patient Portal/API
[2025-05-07] MEDS: ASPIRIN 81 MG CHEW TAB 324 MG PO (08:38)
[2025-05-07] MEDS: MORPHINE 2 MG/ML INJ IV ×3 (08:38→08:50)
[2025-05-07] MEDS: SODIUM CHLORIDE 0.9% 1,000 ML 1000 ML IV (08:39)
[2025-05-07] MEDS: NITROGLYCERIN 0.4 MG SL TAB SL (08:40)
[2025-05-07 08:43] LABS: Add Manual Diff / Slide Review NO; Hematocrit 44.3 % (41-53); Hemoglobin 15.4 g/dL (13.5-17.5); Lymphocytes Absolute Auto 1800 /uL (1100-4500); Mean Corpuscular HGB Conc 34.8 % (30-36); Mean Corpuscular Hemoglobin 30.3 PG (26-34); Mean Corpuscular Volume 87.1 fL (80-100); Platelet Count 275 X10^3/uL (150-400)
[2025-05-07 08:47] LABS: INR 1.1 (0.9-1.3); Prothrombin Time 11.9 SECONDS (9.4-12.5)
[2025-05-07 08:49] LABS: Lipase 93 U/L (23-300); PTT Partial Thromboplastin Tim 30 SECONDS (25.1-36.5)
[2025-05-07 08:51] LABS: Alanine Aminotransferase 50 IU/L (<50); Albumin 4.8 g/dL (3.5-5.0); Albumin Globulin Ratio 1.3 (1.0-2.8); Alkaline Phosphatase 88 U/L (38-126); Blood Urea Nitrogen 12 mg/dL (9-20); Calcium 10.0 mg/dL (8.4-10.2); Carbon Dioxide 18 mmol/L (22-32); Chloride 104 mmol/L (98-107); Creatine Kinase 148 U/L (55-170); Estimated Glomerular Filt Rate > 60 mL/min (>60); Globulin 3.8 g/dL (1.7-4.1); Glucose 125 mg/dL (70-99); HEMOLYSIS < 15 (0-50); Lipase 93 U/L (23-300); Magnesium 1.6 mg/dL (1.6-2.3); Potassium 3.9 mmol/L (3.4-5.1); Sodium 136 mmol/L (137-145); Total Protein 8.6 g/dL (6.3-8.2)
--- NOTE | 2025-05-07 08:52 | DI.CT.S_ITS ---
PROCEDURE: CT ABDOMEN PELVIS W CON INDICATIONS: LUQ pain TECHNIQUE: After the administration of intravenous contrast, axial sections acquired from the lung bases to the pubic symphysis. Coronal and sagittal reformats were performed. For radiation dose reduction, the following was used: automated exposure control, adjustment of mA and/or kV according to patient size. COMPARISON: [facility], CT, CT ABDOMEN PELVIS W CON, 01/19/2025, 8:22. [facility], CR, XR KUB, 02/20/2025, 9:55. [facility], CR, XR CHEST 1V, 05/07/2025, 8:14. [facility], CT, CT ABDOMEN PELVIS W CON, 02/11/2025, 10:11. FINDINGS: Image quality: Diagnostic. Lower Chest: No significant findings. ABDOMEN: Liver: No solid mass. Gallbladder: No radiopaque gallstones or wall thickening. Biliary ducts: No biliary dilation. Pancreas: No ductal dilation. Spleen: Size is within normal limits. Adrenal Glands: No adrenal nodules. Kidneys and Ureters: No hydronephrosis. No solid mass. No complex renal cystic lesion which requires follow up. Stomach and Bowel: Normal colonic caliber, without significant wall thickening. There is a narrowed segment of the proximal sigmoid which is unremarkable on the 2 previous recent studies, consistent with active peristalsis. Reference axial image 126 of series 2. No suspicious colonic lesions are noted. Normal appendix. Peritoneum: No abnormal intraperitoneal fluid. No free air. [employer] shunt. Ventral Wall: No significant ventral hernia. Abdominal Nodes: No retroperitoneal or mesenteric adenopathy by size criteria. Vessels: Aorta and inferior vena cava are normal in size. PELVIS: Pelvic Organs: Unremarkable. Bladder: Bladder wall thickening. Ureters no longer have thickened enhancing jarrett. Pelvic Nodes: No enlarged lymph nodes. Miscellaneous: No inguinal hernias are seen. Evidence of previous bilateral sacral decubitus ulcers. There is associated thickening of the normal fatty tissues. No active ulceration with skin opening is identified by CT. Bones: No aggressive osseous abnormality. Spinal dysraphism. Congenitally short lumbar pedicles and epidural lipomatosis result in canal stenosis at T12-L1, L1- L2, and L2-L3. There is also canal stenosis at L3-L4, with disc bulge and short pedicles. IMPRESSION: 1. Continued bladder wall thickening with resolution of ureteral wall thickening and enhancement. 2. Findings likely indicate bilateral healed sacral decubitus ulcers. However, recommend correlation with physical inspection. 3. Spinal dysraphism. 4. Multilevel canal stenosis as described above. Dictated by: Peterson Lema M.D. on 05/07/2025 at 9:25 Approved by: Peterson Lema M.D. on 05/07/2025 at 9:35
[2025-05-07] MEDS: ONDANSETRON 4 MG/2 ML INJ IV (08:58)
[2025-05-07 09:02] LABS: NT-proBNP (BNP-Adult 18+) < 20 pg/mL (<125); Troponin I < 0.012 ng/mL (0.01-0.034)
--- NOTE | 2025-05-07 11:54 | DI.CT.S_ITS ---
PROCEDURE: CT ANGIO CHEST INDICATIONS: severe Left chest pain and LUQ pain. ? dissection TECHNIQUE: After the administration of intravenous contrast, 2 mm thick sections acquired from the pulmonary apices to the posterior costophrenic angles. 3-dimensional maximum intensity projection (MIP) coronal and sagittal reformats were then acquired through the thorax. For radiation dose reduction, the following was used: automated exposure control, adjustment of mA and/or kV according to patient size. COMPARISON: [facility], CR, XR CHEST 1V, 05/07/2025, 8:14. FINDINGS: Image quality: Diagnostic. Pulmonary arteries: Pulmonary arteries are normal in size, and demonstrate no intraluminal filling defects to suggest central pulmonary embolism. Lower Neck: No enlarged lymph nodes. Thyroid: No thyroid nodules which require sonographic follow up, per consensus guidelines. Axillae: No enlarged lymph nodes. Chest Wall: Unremarkable. Bones: Unremarkable. Lungs and Pleura: No pneumothorax or pleural effusions. No suspicious nodules. Note is made of mild alveolar consolidation at the posterior left lower lobe extending into the costophrenic sulcus and abutting the posterior border of the left diaphragm. Heart: Heart size is normal. No pericardial effusion. Thoracic Vessels: No aortic aneurysm. Mediastinum and Ruth: No enlarged lymph nodes. Esophagus: No wall thickening. No hiatal hernia. Upper Abdomen: Visualized upper abdomen solid organs and bowel loops appear normal. IMPRESSION: No pulmonary embolus. Mild alveolar consolidation at the posterior left lower lobe extending into the costophrenic sulcus to the degree that mild or early pneumonia should be considered. No associated pleural effusion is found. No alternative source of left-sided chest and upper abdominal pain is seen. Dictated by: Amarjit Orona M.D. on 05/07/2025 at 12:42 Approved by: Amarjit Orona M.D. on 05/07/2025 at 12:48
[2025-05-07] MEDS: MAG HYDROX/ALUMINUM/SIMETH SUS 30 ML, LIDOCAINE VISCOUS 2% 15 ML PO (13:49)
--- NOTE | 2025-05-07 14:12 | PC.NURSE ---
Pt given GI cocktail, he vomited it up after about 4 minutes.
== END 2025-05-07 14:31 | disposition home or self-care (01) ==
PROVIDERS: Emergency Provider Emergency Medicine; PCP Family Medicine
DX: R07.9 Chest pain, unspecified (principal)
CPT/HCPCS: 36415; 71045; 71275; 74177; 80053; 82550; 83690; 83735; 83880; 84484; 85025; 85610; 85730; 93005; 96361; 96374; 96375; 96376; 99284; J1171; J2270; J2405; Q9967

== ENCOUNTER 2025-07-03 07:48 | Day surgery (SDC) | payer MEDICARE, MEDICAID, SELFPAY ==
[2025-02-17 13:30] VITALS: BMI 28.8
--- NOTE | 2025-07-03 | PATH_ITS ---
[facility] Accession Number: [id number] No. of containers..02 Tissue . 01 Material submitted: . PART A: duodenum - DUODENUM PART B: stomach - ANTRUM . 01 Diagnosis: A. DUODENUM: Duodenal mucosa with no diagnostic abnormality. Negative for active inflammation, features of sprue, dysplasia, or malignancy. . B. ANTRUM: Gastric mucosa with focal erosion. No Helicobacter pylori organisms identified on immunohistochemical evaluation. No intestinal metaplasia, dysplasia, or malignancy. MRV 07/13/2025 1617 Local . 01 Electronically signed: . Gifty Kelly MD, Pathologist NPI- [id number] . 01 Gross description: . A. Received in formalin labeled with two patient identifiers and duodenum, and consists of two rahman tissues averaging 0.3 cm in greatest dimension which are submitted in toto in cassette A1. B. Received in formalin labeled with two patient identifiers and antrum, and consists of four rahman tissue averaging 0.1 cm in greatest dimension which are submitted in toto in cassette B1. ([id number]) /YASH 07/08/2025 2235 Local . 01 Microscopic: . B. An immunohistochemical stain was performed to evaluate for Helicobacter organisms and is negative. The control stain showed appropriate reactivity. . * This test was developed and the performance characteristics were validated by [facility]. It has not been cleared or approved by the U.S. Food and Drug Administration. . 01 Pathologist provided ICD-10: K29.70, K25.9 . 01 CPT . 975358, 933522, [id number] Specimen Comment: A courtesy copy of this report has been sent to [phone] Performed at: [address] [address], [place], [place] [id number] MD Nemesio Velázquez MD Phone: [phone]
[2025-07-03 08:04] VITALS: BP 176/101; PULSE 77; RESP 15; TEMP 36.2; O2SAT 99
[2025-07-03 08:10] VITALS: BP 159/105
[2025-07-03] MEDS: LACTATED RINGERS 1,000 ML 42 ML IV (08:12)
--- NOTE | 2025-07-03 08:54 | P.HP_ITS ---
History of Present Illness History of Present Illness Date Patient Seen: 07/03/25 Time Patient Seen: 08:54 Chief complaint: EGD/Colonoscopy Narrative: mAaury is a 44-year-old man presenting for an EGD colonoscopy for dyspepsia and history of polyps. He did see Dr. Jacobson in April. See the office note details. [facility] Medical History Abnormal computed tomography of bladder Irritable bowel disease Unspecified atherosclerosis of nonautologous biological bypass graft(s) of the extremities, right leg Cerebral palsy, unspecified Paraplegia, unspecified Cannabis dependence, uncomplicated Osteomyelitis Chronic wrist pain History of osteomyelitis Callus of foot History of bladder stone Chronic pain of left wrist Hydrocephalus Neurogenic bladder Wheelchair dependent Bladder calculi Gross hematuria Callus Incontinence of urine Hypertension Spina bifida Sacral decubitus ulcer Spina bifida Surgical History Hx of right BKA History of left below knee amputation History of orthopedic surgery (06/16/22) S/P REFRACTORY MANAGER shunt Family History Mother Hypertension UTI (urinary tract infection) Father No pertinent past medical history Social History marital status: unmarried,single household members: family occupational status: employed Smoking Status: Current every day smoker alcohol intake: current substance use type: marijuana caffeine: No Type(s) of exercise: decline to answer Meds Home Medications and Allergies Home Medications ?Medication ?Instructions ?Recorded ?Confirmed ?Type Male Incontinence Briefs #100 ea 08/10/22 04/27/25 Rx Prevail Male Guard #100 ea 08/10/22 04/27/25 Rx diclofenac potassium 50 mg tablet 50 mg PO TID PRN Zackery n (Scale Score 10/03/24 07/03/25 Rx 4-6) #90 tabs losartan 50 mg tablet 100 mg (2 x 50 mg) PO DAILY #180 10/03/24 07/03/25 Rx tabs triamcinolone acetonide 0.5 % 1 applic topical BID PRN Psoriasis 02/10/25 04/27/25 Rx topical cream #15 grams amlodipine 2.5 mg tablet 2.5 mg PO DAILY 04/27/25 History oxycodone-acetaminophen 5 mg-325 1 tab PO Q6H PRN pain #14 tabs 05/07/25 Rx mg tablet Allergies Allergy/AdvReac Type Severity Reaction Status Date / Time hydrocodone (From Vicodin) AdvReac Mild Nausea Verified 07/03/25 08:01 Exam Vital Signs (past 8 hours): - 07/03/25 08:04 07/03/25 08:10 Temperature 97.2 F L Pulse Rate 77 Respiratory Rate 15 Blood Pressure 176/101 H 159/105 H Pulse Oximetry 99 Oxygen Delivery Method Room Air Oxygen Delivery Method Room Air Const General: No acute distress Assessment & Plan Assessment and plan (1) Colon polyps: Qualifiers: Colon polyp type: unspecified Colon location: unspecified part of colon Qualified Code(s): K63.5 - Polyp of colon Status: Acute (2) GERD (gastroesophageal reflux disease): Qualifiers: Esophagitis presence: esophagitis presence not specified Qualified Code(s): K21.9 - Gastro-esophageal reflux disease without esophagitis Status: Acute Plan EGD and colonoscopy Time-Based Coding :: [TOTAL MINUTES] spent with patient and on the chart (including review of chart, obtaining history, exam, reviewing outside data, placing orders, documenting exam and treatment plan, and counseling patient) on [DATE]. [employer] Document charge(s): No
--- NOTE | 2025-07-03 09:46 | PM.OP.EC ---
Operative Date/Time/Diagnoses Date of procedure: 07/03/25 Time of procedure: 09:46 Pre-op diagnosis: Dyspepsia and history of colon polyps Post-op diagnosis: same Procedure & Clinicians Study performed: EGD and colonoscopy Same procedure(s) as scheduled: Yes Surgeon: Joshua Rahman Anesthesia Type: MAC +/- Procedure Notes Procedure in detail: Surgeon: Joshua Rahman MD Anesthesia: Vashti Saud DO Procedure in detail: A timeout was performed. A bite blocked was placed and monitors were attached to the patient. The patient was positioned in the left lateral decubitus position. Sedation was administered. Once the patient was sedated the endoscope was inserted through the bite block and passed through the esophagus and stomach and into the duodenum. No gross abnormalities seen in the duodenum. Random biopsies were taken from the duodenal mucosa with cold forceps. We then withdrew the scope into the stomach. There was some antritis and small antral ulcer. Random biopsies were taken from the antrum with cold forceps. The endoscope was retroflexed and hiatal hernia was noted. The endoscope was straightned and withdrawn into the esophagus. No abnormalities were noted in the esophagus. EGD findings: Antritis and small antral ulcers Next we repositioned the patient for a colonoscopy. A digital rectal exam was performed and was normal. The colonoscope was inserted and advanced to the cecum. The appendiceal orifice was identified and photographed. The scope was slowly withdrawn over greater than 6 minutes. No polyps or other abnormalities were identified. The scope was retroflexed in the rectum and no abnormalities were found. Colonoscopy findings: Normal colon Total procedural EBL: 5 mL Scope withdrawal time: 6 minutes Sedation minutes: 35 minutes Post-procedure Disposition: PACU
[2025-07-03 09:47] VITALS: BP 139/90; PULSE 84; RESP 18; TEMP 36.4; O2SAT 95
[2025-07-03 09:52] VITALS: BP 143/92; PULSE 86; RESP 25; O2SAT 97
[2025-07-03 10:01] VITALS: BP 160/102; PULSE 75; RESP 19; O2SAT 98
== END 2025-07-03 10:30 | disposition home or self-care (01) ==
PROVIDERS: Surgery; PCP Family Medicine; Referring Provider Family Medicine; Visit Provider Surgery
PROC: 0DJ08ZZ Inspection of Upper Intestinal Tract, Via Natural or Artificial Opening Endoscopic (ICD-10-PCS; CPT 43239; principal; 2025-07-03 09:00)
PROC: 0DJD8ZZ Inspection of Lower Intestinal Tract, Via Natural or Artificial Opening Endoscopic (ICD-10-PCS; CPT 45378; 2025-07-03 09:00)
DX: Z12.11 Encounter for screening for malignant neoplasm of colon (principal); Z86.0100 Personal history of colon polyps, unspecified; R10.13 Epigastric pain; F17.210 Nicotine dependence, cigarettes, uncomplicated; K25.9 Gastric ulcer, unspecified as acute or chronic, without hemorrhage or perforation
CPT/HCPCS: 43239; 45378; J2704

== ENCOUNTER 2025-08-20 14:08 | Emergency (ER) | payer MEDICARE, MEDICAID, SELFPAY ==
[2025-02-17 13:30] VITALS: BMI 28.8
[2025-08-20 14:15] VITALS: BP 193/102; PULSE 93; RESP 16; TEMP 36.3; O2SAT 97; BMI 29.7
--- NOTE | 2025-08-20 14:19 | DI.CT.S_ITS ---
PROCEDURE: CT ABDOMEN PELVIS W CON
--- NOTE | 2025-08-20 14:21 | ED_ITS ---
HPI - Nausea/Vomiting/Diarrhea
--- NOTE | 2025-08-20 14:21 | ED.NAVMDI ---
HPI - Nausea/Vomiting/Diarrhea General Chief complaint: Nausea/Vomiting/Diarrhea Stated complaint: Diarrhea since sunday, dehydrated? Time Seen by Provider: 08/20/25 14:20 History of Present Illness HPI Narrative: [age] gentleman history hypertension spina bifida bilateral below-knee amputation presents with weakness nausea vomiting diarrhea for the past few days unable to hold anything down. Patient denies cough sore throat fever chills body aches urinary complaints. Than what is stated 14 point review of system is negative. Related Data Home Medications ?Medication ?Instructions ?Recorded ?Confirmed amlodipine 2.5 mg tablet 2.5 mg PO DAILY 04/27/25 07/03/25 Previous Rx's ?Medication ?Instructions ?Recorded Male Incontinence Briefs #100 ea 08/10/22 Prevail Male Guard #100 ea 08/10/22 diclofenac potassium 50 mg tablet 50 mg PO TID PRN Pain (Scale Score 10/03/24 4-6) #90 tabs losartan 50 mg tablet 100 mg (2 x 50 mg) PO DAILY #180 10/03/24 tabs oxycodone-acetaminophen 5 mg-325 1 tab PO Q6H PRN pain #14 tabs 05/07/25 mg tablet omeprazole 40 mg capsule,delayed 40 mg PO DAILY #120 caps 07/16/25 release triamcinolone acetonide 0.5 % 1 applic topical BID PRN psoriasis 07/28/25 topical cream #15 grams ondansetron HCl 4 mg tablet 4 mg PO Q8H PRN nausea and 08/20/25 vomiting #30 tabs Allergies Allergy/AdvReac Type Severity Reaction Status Date / Time hydrocodone (From Vicodin) AdvReac Mild Nausea Verified 07/03/25 08:01 Review of Systems Review of Systems ROS Unobtainable: All systems reviewed & are unremarkable except as noted in HPI and below Patient History Medical History Abnormal computed tomography of bladder Irritable bowel disease Unspecified atherosclerosis of nonautologous biological bypass graft(s) of the extremities, right leg Cerebral palsy, unspecified Paraplegia, unspecified Cannabis dependence, uncomplicated Osteomyelitis Chronic wrist pain History of osteomyelitis Callus of foot History of bladder stone Chronic pain of left wrist Hydrocephalus Neurogenic bladder Wheelchair dependent Bladder calculi Gross hematuria Callus Incontinence of urine Hypertension Spina bifida Sacral decubitus ulcer Spina bifida Surgical History Hx of right BKA History of left below knee amputation History of orthopedic surgery (06/16/22) S/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 Well-developed patient, in mild distress. HEAD: Atraumatic. Normocephalic. EYES: Pupils equal round and reactive. Extraocular motions intact. No scleral icterus. No injection or drainage. ENT: Nose without bleeding, purulent drainage. Throat without erythema, tonsillar hypertrophy or exudate. Airway patent. NECK: Trachea midline. Non tender CARDIOVASCULAR: Regular rate and rhythm without murmurs, gallops, or rubs. RESPIRATORY: Clear to auscultation. Breath sounds equal bilaterally. No wheezes, rales, or rhonchi. GASTROINTESTINAL: Abdomen soft, non-tender, nondistended. EXTREMITIES: No edema or joint tenderness. BACK: Nontender without deformity or crepitance. No flank tenderness. NEURO: AOx3. SKIN: No rash or erythema of visible areas Initial Vital Signs Initial Vital Signs: Vital Signs Temperature 97.3 F L 08/20/25 14:15 Pulse Rate 93 H 08/20/25 14:15 Respiratory Rate 16 08/20/25 14:15 Blood Pressure 193/102 H 08/20/25 14:15 Pulse Oximetry 97 08/20/25 14:15 Oxygen Delivery Method Room Air 08/20/25 14:15 Course Orders Ordered: ED Orders 08/20/25 14:19 CT abdomen pelvis w con Stat EKG-12 Lead Stat 08/20/25 14:20 Covid-19 + FLU A/B + RSV - PCR Stat 08/20/25 14:28 Complete Blood Count AUTO DIFF Stat Comprehensive Metabolic Panel Stat Lipase Stat Ondansetron HCl (Ondansetron 4 Mg/2 Ml Inj) 4 mg IV NOW PRN PRN Reason: Nausea And Vomiting Last Admin: 08/20/25 14:39 Dose: 4 mg Documented By: NARDA Ondansetron HCl (Ondansetron 4 Mg Odt) 4 mg PO NOW PRN PRN Reason: Nausea And Vomiting Discontinued Medications Hydromorphone HCl (Hydromorphone 1 Mg/Ml Syringe) 1 mg IV NOW ONE Stop: 08/20/25 15:21 Last Admin: 08/20/25 15:25 Dose: 1 mg Documented By: ELTON Lactated Ringer's (Lactated Ringers) 500 mls @ 1,000 mls/hr IV BOLUS ONE Stop: 08/20/25 14:50 Last Infusion: 08/20/25 16:18 Dose: Infused Documented By: Admin: 08/20/25 14:42 Dose: 1,000 mls/hr Documented By: NARDA Ketorolac Tromethamine (Ketorolac 30 Mg/Ml Vial) 15 mg IV NOW ONE Stop: 08/20/25 15:02 Last Admin: 08/20/25 15:06 Dose: 15 mg Documented By: ELTON Vital Signs Vital signs: Vital Signs - 8 hr 08/20/25 14:15 08/20/25 14:49 08/20/25 14:50 Temperature 97.3 F L Pulse Rate 93 H 93 H Respiratory Rate 16 Blood Pressure 193/102 H 148/99 H Pulse Oximetry 97 97 Oxygen Delivery Method Room Air 08/20/25 14:50 08/20/25 15:00 Temperature Pulse Rate 92 H 89 Respiratory Rate 23 Blood Pressure Pulse Oximetry 96 98 Oxygen Delivery Method MDM - Nausea/Vomiting/Diarrhea Lab Data 08/20/25 14:28 08/20/25 14:28 Labs: Lab Results 08/20/25 Range/Units 14:28 WBC 11.1 H (4.5-11.0) X10^3/uL RBC 5.32 (4.5-5.9) X10^6/uL Hgb 15.6 (13.5-17.5) g/dL Hct 45.3 (41-53) % MCV 85.2 (80-100) fL MCH 29.3 (26-34) PG MCHC 34.4 (30-36) % RDW 13.7 (11.6-14.8) % Plt Count 315 (150-400) X10^3/uL Neut % (Auto) 75.1 H (50-75) % Lymph % (Auto) 16.1 L (25-40) % [place] % (Auto) 6.8 (3-14) % Eos % (Auto) 1.8 L (2-4) % Baso % (Auto) 0.2 (0-2) % Neut # (Auto) 8300 H (6625-5957) /uL Lymph # (Auto) 1800 (3784-7134) /uL [place] # (Auto) 800 (0-900) /uL Eos # (Auto) 200 (0-450) /uL Baso # (Auto) 0 (0-100) /uL Sodium 137 (137-145) mmol/L Potassium 3.5 (3.4-5.1) mmol/L Chloride 103 (98-107) mmol/L Carbon Dioxide 18 L (22-32) mmol/L BUN 12 (9-20) mg/dL Creatinine 0.81 (0.66-1.25) mg/dL Estimated GFR > 60 (>60) mL/min BUN/Creatinine Ratio 14.8 (6-22) Glucose 106 H (70-99) mg/dL Calcium 9.3 (8.4-10.2) mg/dL Total Bilirubin 1.5 H (0.2-1.3) mg/dL AST 40 (17-59) IU/L ALT 65 H (<50) IU/L Alkaline Phosphatase 81 (38-126) U/L Total Protein 9.1 H (6.3-8.2) g/dL Albumin 5.1 H (3.5-5.0) g/dL Globulin 4.0 (1.7-4.1) g/dL Albumin/Globulin Ratio 1.3 (1.0-2.8) Lipase 80 (23-300) U/L Imaging Data CT scan - abdomen/pelvis: Radiologist's Impression: [address] [address] [address] Scan Report Signed Patient: Amaury Robertson MR#: [id number] : 1980 Acct:[id number] Age/Sex: 45 / M Date of Service: 08/20/25 Loc: ED Accession Number: [id number] Procedure: CT abdomen pelvis w con Ordering Provider: Taurus Edward D.O. PROCEDURE: CT ABDOMEN PELVIS W CON INDICATIONS: abd pain TECHNIQUE: After the administration of intravenous contrast, axial sections acquired from the lung bases to the pubic symphysis. Coronal and sagittal reformats were performed. For radiation dose reduction, the following was used: automated exposure control, adjustment of mA and/or kV according to patient size. COMPARISON: [facility], CT, CT ABDOMEN PELVIS W CON, 05/07/2025, 8:58. FINDINGS: Image quality: Diagnostic. Lower Chest: No significant findings. ABDOMEN: Liver: No solid mass. Gallbladder: No radiopaque gallstones or wall thickening. Biliary ducts: No biliary dilation. Pancreas: No ductal dilation. Spleen: Size is within normal limits. Adrenal Glands: No adrenal nodules. Kidneys and Ureters: No hydronephrosis. No solid mass. No complex renal cystic lesion which requires follow up. Stomach and Bowel: Normal colonic caliber, without significant wall thickening. Appendix measures 8 mm in diameter but contains air and fluid. Peritoneum: No abnormal intraperitoneal fluid. No free air. Ventriculoperitoneal shunt catheter tip terminates in the right lower quadrant. Ventral Wall: No significant ventral hernia. Abdominal Nodes: No retroperitoneal or mesenteric adenopathy by size criteria. Vessels: Aorta and inferior vena cava are normal in size. PELVIS: Pelvic Organs: Prostatomegaly with coarse calcification. Bladder: Bladder decompressed with chronic wall thickening. Pelvic Nodes: No enlarged lymph nodes. Miscellaneous: No inguinal hernias are seen. Bones: No aggressive osseous abnormality. 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 IMPRESSION: Dilated appendix to 8 mm, but with gas within the lumen, unlikely to represent acute appendicitis. Otherwise no evidence of acute abnormality. Dictated by: Jayesh Mancini M.D. on 08/20/2025 at 15:52 Approved by: Jayesh Mancini M.D. on 08/20/2025 at 16:14 MDM Narrative Medical decision making narrative: All lab work, vital signs, nurse triage note, medication list, previous ER visits, and all imaging studies reviewed. WBC 11.1 hemoglobin 15.6 platelets 315 sodium 137 potassium 3.5 chloride 103 CO2 18 BUN 12 creatinine 0.81 glucose 106 T bili 1.5 lipase 80. Patient given fluids and Zofran here. CT abdomen and pelvis showed dilated appendix to 8 mm but with gas within the lumen unlikely to represent acute appendicitis otherwise no evidence of acute abnormality. Case discussed with Dr. Dickson surgeon on-call who does not believe the findings suggest acute appendicitis and most likely a viral gastroenteritis and to hydrate give fluid and Zofran. Return with new or worsening symptoms. Differential diagnosis COVID, flu, gastroenteritis, constipation, small-bowel obstruction, diverticulitis pancreatitis. Discharge Plan Departure Patient Disposition: Home Clinical Impression: Nausea vomiting and diarrhea Instructions: Nausea and Vomiting-Adult Activity Restrictions/Additional Instructions: Return with new or worsening symptoms. Follow up with PCP next week if no improvement in symptoms. Keep hydrated. Clear liquid diet advance as tolerated. Take medicine as directed Prescriptions: New ondansetron HCl 4 mg tablet 4 mg PO Q8H PRN (Reason: nausea and vomiting) Qty: 30 0RF No Action (DME) Prevail Male Guard See Rx Instructions .Route .MEDSUPPLY Qty: 100 12RF Rx Instructions: As directed (DME) Male Incontinence Briefs Medium See Rx Instructions .Route .MEDSUPPLY Qty: 100 12RF Rx Instructions: As directed losartan 50 mg tablet 100 mg PO DAILY Qty: 180 3RF Rx Instructions: take in the AM diclofenac potassium 50 mg tablet 50 mg PO TID PRN (Reason: Pain (Scale Score 4-6)) Qty: 90 1RF Rx Instructions: TAKE 1 TABLET BY MOUTH THREE TIMES DAILY NEEDED FOR PAIN omeprazole 40 mg capsule,delayed release(DR/EC) 40 mg PO DAILY Qty: 120 0RF triamcinolone acetonide 0.5 % cream 1 applic topical BID PRN (Reason: psoriasis) Qty: 15 2RF amlodipine 2.5 mg tablet 2.5 mg PO DAILY oxycodone-acetaminophen 5-325 mg tablet 1 tab PO Q6H PRN (Reason: pain) Qty: 14 0RF Referrals: Yair Garcia DO [Primary Care Provider, Family Practice] Stand Alone Forms: Patient Portal/API
[2025-08-20] MEDS: ONDANSETRON 4 MG/2 ML INJ IV (14:39)
[2025-08-20] MEDS: LACTATED RINGERS 500 ML 1000 ML IV (14:42)
[2025-08-20 14:45] LABS: Add Manual Diff / Slide Review NO; Hematocrit 45.3 % (41-53); Hemoglobin 15.6 g/dL (13.5-17.5); Lymphocytes Absolute Auto 1800 /uL (1100-4500); Mean Corpuscular HGB Conc 34.4 % (30-36); Mean Corpuscular Hemoglobin 29.3 PG (26-34); Mean Corpuscular Volume 85.2 fL (80-100); Platelet Count 315 X10^3/uL (150-400)
[2025-08-20 14:49] VITALS: PULSE 93; O2SAT 97
[2025-08-20 14:50] VITALS: BP 148/99; PULSE 92; O2SAT 96
[2025-08-20 14:52] LABS: Alanine Aminotransferase 65 IU/L (<50); Albumin 5.1 g/dL (3.5-5.0); Albumin Globulin Ratio 1.3 (1.0-2.8); Alkaline Phosphatase 81 U/L (38-126); Blood Urea Nitrogen 12 mg/dL (9-20); Calcium 9.3 mg/dL (8.4-10.2); Carbon Dioxide 18 mmol/L (22-32); Chloride 103 mmol/L (98-107); Estimated Glomerular Filt Rate > 60 mL/min (>60); Globulin 4.0 g/dL (1.7-4.1); Glucose 106 mg/dL (70-99); HEMOLYSIS 53 (0-50); Lipase 80 U/L (23-300); Potassium 3.5 mmol/L (3.4-5.1); Sodium 137 mmol/L (137-145); Total Protein 9.1 g/dL (6.3-8.2)
[2025-08-20 15:00] VITALS: PULSE 89; RESP 23; O2SAT 98
[2025-08-20] MEDS: KETOROLAC 30 MG/ML VIAL 15 MG IV (15:06)
[2025-08-20 15:30] VITALS: PULSE 85; RESP 16; O2SAT 95
[2025-08-20 16:00] VITALS: PULSE 85; RESP 18; O2SAT 95
== END 2025-08-20 17:27 | disposition home or self-care (01) ==
PROVIDERS: Emergency Provider Family Medicine; PCP Family Medicine
DX: R11.2 Nausea with vomiting, unspecified (principal); R19.7 Diarrhea, unspecified
CPT/HCPCS: 36415; 74177; 80053; 83690; 85025; 96361; 96374; 96375; 99284; J1171; J1885; J2405; Q9967

== ENCOUNTER 2025-08-22 11:44 | Emergency (ER) | payer MEDICARE, MEDICAID, SELFPAY ==
[2025-02-17 13:30] VITALS: BMI 28.8
[2025-08-22] VITALS (12 sets, daily range): BP systolic 131–169; BP diastolic 73–102; PULSE 71–109; RESP 13–28; TEMP 36.6; O2SAT 95–99; BMI 29.7
--- NOTE | 2025-08-22 12:14 | DI.CT.S_ITS ---
PROCEDURE: CT ABDOMEN PELVIS W CON
--- NOTE | 2025-08-22 12:19 | ED_ITS ---
<Statement entered by Taurus Edward, DO - 08/22/25 22:00>
--- NOTE | 2025-08-22 12:19 | ED.ABDPAIN ---
HPI - Abdominal Pain General Chief Complaint: Abdominal Pain Stated Complaint: Severe vomiting, diarrhea, flu like symp Time Seen by Provider: 08/22/25 11:53 Source: patient Mode of arrival: Wheelchair History of Present Illness HPI narrative: 45-year-old male with history of spina bifida and bilateral BKA here today with left lower abdominal pain, nausea, vomiting, and diarrhea for 5-6 days. He was just seen in this ED 2 days ago and had a full workup including labs and CT abdomen and pelvis which revealed a dilated appendix of 8 mm. His labs were otherwise mostly unremarkable at that time, with a white count of 11.1, he was given Dilaudid for his abdominal pain and IV Zofran which improved his symptoms. He states for the next day he felt better but his symptoms returned the 2nd day after his ER visit (last night), and have continued to today. He is having frequent bouts of diarrhea that is watery but nonbloody. He has vomited multiple times today, no blood. He has been taking the Zofran that was prescribed without relief. He is having abdominal pain in the left lower abdomen, but no pain elsewhere in the abdomen. He is incontinent and uses briefs but otherwise states his urination has been normal without pain or blood. He is a daily cannabis user, states he has been using marijuana for several decades and has not ever had issues with it before. He did use it the day after his ED visit. Related Data Home Medications ?Medication ?Instructions ?Recorded ?Confirmed amlodipine 2.5 mg tablet 2.5 mg PO DAILY 04/27/25 07/03/25 Previous Rx's ?Medication ?Instructions ?Recorded Male Incontinence Briefs #100 ea 08/10/22 Prevail Male Guard #100 ea 08/10/22 diclofenac potassium 50 mg tablet 50 mg PO TID PRN Pain (Scale Score 10/03/24 4-6) #90 tabs losartan 50 mg tablet 100 mg (2 x 50 mg) PO DAILY #180 10/03/24 tabs oxycodone-acetaminophen 5 mg-325 1 tab PO Q6H PRN pain #14 tabs 05/07/25 mg tablet omeprazole 40 mg capsule,delayed 40 mg PO DAILY #120 caps 07/16/25 release triamcinolone acetonide 0.5 % 1 applic topical BID PRN psoriasis 10/14/25 topical cream #15 grams ondansetron HCl 4 mg tablet 4 mg PO Q8H PRN nausea and 08/20/25 vomiting #30 tabs Allergies Allergy/AdvReac Type Severity Reaction Status Date / Time hydrocodone (From Vicodin) AdvReac Mild Nausea Verified 08/22/25 12:03 Review of Systems Review of Systems ROS Unobtainable: All systems reviewed & are unremarkable except as noted in HPI and below Patient History Medical History Abnormal computed tomography of bladder Irritable bowel disease Unspecified atherosclerosis of nonautologous biological bypass graft(s) of the extremities, right leg Cerebral palsy, unspecified Paraplegia, unspecified Cannabis dependence, uncomplicated Osteomyelitis Chronic wrist pain History of osteomyelitis Callus of foot History of bladder stone Chronic pain of left wrist Hydrocephalus Neurogenic bladder Wheelchair dependent Bladder calculi Gross hematuria Callus Incontinence of urine Hypertension Spina bifida Sacral decubitus ulcer Spina bifida Surgical History Hx of right BKA History of left below knee amputation History of orthopedic surgery (06/16/22) S/P [employer] shunt Family History Mother Hypertension UTI (urinary tract infection) Father No pertinent past medical history Social History marital status: unmarried,single household members: family occupational status: employed Smoking Status: Unknown if ever smoked alcohol intake: current substance use type: marijuana caffeine: No Type(s) of exercise: decline to answer Smoking Status: Unknown if ever smoked alcohol intake frequency: holidays/special occasions only Exam Narrative Exam Narrative: GENERAL: [45] year old patient appears stated age. Well-developed patient, in no distress but appears uncomfortable and is holding the left side of his abdomen HEAD: Atraumatic. Normocephalic. EYES: Pupils equal round and reactive. Extraocular motions intact. No scleral icterus. No injection or drainage. ENT: Nose without bleeding, purulent drainage. Throat without erythema, tonsillar hypertrophy or exudate. Airway patent. NECK: Trachea midline. Non tender CARDIOVASCULAR: Regular rate and rhythm without murmurs, gallops, or rubs. RESPIRATORY: Clear to auscultation. Breath sounds equal bilaterally. No wheezes, rales, or rhonchi. GASTROINTESTINAL: Abdomen soft, nondistended, tenderness to deep palpation of left lower quadrant but no rebound or guarding. No tenderness in the right lower quadrant. No epigastric or umbilical tenderness. EXTREMITIES: No edema or joint tenderness. History of bilateral BKA. NEURO: AOx3. SKIN: No rash or erythema of visible areas Initial Vital Signs Initial Vital Signs: Vital Signs Temperature 97.8 F 08/22/25 11:55 Pulse Rate 109 H 08/22/25 11:55 Respiratory Rate 24 08/22/25 11:55 Blood Pressure 169/101 H 08/22/25 11:55 Pulse Oximetry 99 08/22/25 11:55 Oxygen Delivery Method Room Air 08/22/25 11:55 Course Orders Ordered: ED Orders 08/22/25 12:05 Complete Blood Count AUTO DIFF Stat Comprehensive Metabolic Panel Stat ETOH [Ethanol (ETOH)] Stat Lipase Stat 08/22/25 12:14 CT abdomen pelvis w con Stat 08/22/25 12:30 Clostridium Difficile Tox PCR Stat Fecal Leukocytes Stat Stool Culture Stat 08/22/25 12:47 Ammonia (NH3) Stat 08/22/25 14:27 Urinalysis and Microscopic Stat Urine Drug Screen, Rapid Stat Discontinued Medications Hydromorphone HCl (Hydromorphone 1 Mg/Ml Syringe) 1 mg IV Q15MIN PRN PRN Reason: Pain, Severe (7-10) Last Admin: 08/22/25 14:21 Dose: 1 mg Documented By: Admin: 08/22/25 12:29 Dose: 1 mg Documented By: DEBBIE Lactated Ringer's (Lactated Ringers) 1,000 mls @ 1,000 mls/hr IV BOLUS ONE Stop: 08/22/25 13:15 Last Infusion: 08/22/25 14:30 Dose: Infused Documented By: Admin: 08/22/25 12:29 Dose: 1,000 mls/hr Documented By: DEBBIE Lactated Ringer's (Lactated Ringers) 1,000 mls @ 1,000 mls/hr IV BOLUS ONE Stop: 08/22/25 15:01 Last Infusion: 08/22/25 15:50 Dose: Infused Documented By: Admin: 08/22/25 14:22 Dose: 1,000 mls/hr Documented By: DEBBIE Ondansetron HCl (Ondansetron 4 Mg/2 Ml Inj) 4 mg IV NOW ONE Stop: 08/22/25 12:13 Last Admin: 08/22/25 12:29 Dose: 4 mg Documented By: DEBBIE Vital Signs Vital signs: Vital Signs - 8 hr 08/22/25 11:55 08/22/25 12:01 08/22/25 12:30 Temperature 97.8 F Pulse Rate 109 H 92 H Respiratory Rate 24 24 20 Blood Pressure 169/101 H 169/101 H Pulse Oximetry 99 96 Oxygen Delivery Method Room Air 08/22/25 12:31 08/22/25 12:31 08/22/25 13:39 Temperature Pulse Rate 98 H 84 Respiratory Rate 21 Blood Pressure 156/78 H Pulse Oximetry 97 Oxygen Delivery Method 08/22/25 13:41 08/22/25 13:41 08/22/25 14:00 Temperature Pulse Rate 85 85 Respiratory Rate 15 28 H Blood Pressure 167/102 H Pulse Oximetry 99 98 Oxygen Delivery Method 08/22/25 14:01 08/22/25 14:01 08/22/25 14:30 Temperature Pulse Rate 90 77 Respiratory Rate 23 23 Blood Pressure 150/83 H Pulse Oximetry 99 97 Oxygen Delivery Method 08/22/25 14:30 08/22/25 15:00 08/22/25 15:00 Temperature Pulse Rate 71 Respiratory Rate 19 Blood Pressure 131/83 132/73 Pulse Oximetry 95 Oxygen Delivery Method 08/22/25 15:30 08/22/25 15:30 08/22/25 16:00 Temperature Pulse Rate 74 78 Respiratory Rate 13 13 Blood Pressure 142/75 H Pulse Oximetry 97 97 Oxygen Delivery Method 08/22/25 16:00 Temperature Pulse Rate Respiratory Rate Blood Pressure 145/84 H Pulse Oximetry Oxygen Delivery Method MDM - Abdominal Pain Lab Data 08/22/25 12:05 08/22/25 12:05 Labs: Lab Results 08/22/25 08/22/25 08/22/25 Range/Units 12:05 12:30 12:47 WBC 10.1 (4.5-11.0) X10^3/uL RBC 5.30 (4.5-5.9) X10^6/uL Hgb 15.5 (13.5-17.5) g/dL Hct 45.2 (41-53) % MCV 85.3 (80-100) fL MCH 29.3 (26-34) PG MCHC 34.4 (30-36) % RDW 13.9 (11.6-14.8) % Plt Count 313 (150-400) X10^3/uL Neut % (Auto) 71.1 (50-75) % Lymph % (Auto) 18.2 L (25-40) % [place] % (Auto) 7.5 (3-14) % Eos % (Auto) 2.7 (2-4) % Baso % (Auto) 0.5 (0-2) % Neut # (Auto) 7200 H (6870-8571) /uL Lymph # (Auto) 1800 (4450-9982) /uL [place] # (Auto) 800 (0-900) /uL Eos # (Auto) 300 (0-450) /uL Baso # (Auto) 100 (0-100) /uL Sodium 142 (137-145) mmol/L Potassium 3.3 L (3.4-5.1) mmol/L Chloride 108 H (98-107) mmol/L Carbon Dioxide 16 L (22-32) mmol/L BUN 11 (9-20) mg/dL Creatinine 0.86 (0.66-1.25) mg/dL Estimated GFR > 60 (>60) mL/min BUN/Creatinine Ratio 12.8 (6-22) Glucose 119 H (70-99) mg/dL Calcium 9.5 (8.4-10.2) mg/dL Total Bilirubin 1.1 (0.2-1.3) mg/dL AST 29 (17-59) IU/L ALT 65 H (<50) IU/L Alkaline Phosphatase 90 (38-126) U/L Ammonia < 9 L (9-30) umol/L Total Protein 9.1 H (6.3-8.2) g/dL Albumin 5.1 H (3.5-5.0) g/dL Globulin 4.0 (1.7-4.1) g/dL Albumin/Globulin Ratio 1.3 (1.0-2.8) Lipase 76 (23-300) U/L Urine Color Urine Appearance Urine pH (4.5-8.0) Ur Specific [place] (1.000-1.035) Urine Protein (Negative) Urine Glucose (UA) (Negative) g/dL Urine Ketones (NEGATIVE) Urine Occult Blood (Negative) Urine Nitrate (Negative) Urine Bilirubin (NEGATIVE) Urine Urobilinogen (0.2) E.U./dL Ur Leukocyte Esterase (NEGATIVE) Urine RBC (0-5/HPF) Urine WBC (0-5/HPF) Ur Squamous Epith Cells (0-5/HPF) Urine Bacteria (None) Ur Culture Indicated? Vol Urine Centrifuged U Opiates 300ng/mL cut (Negative) Ur Oxycodone Screen (Negative) Urine Methadone Screen (Negative) Ur Barbiturates Screen (Negative) U Tricyclic Antidepress (Negative) Ur Phencyclidine Scrn (Negative) Ur Amphetamines Screen (Negative) U Methamphetamines Scrn (Negative) Ur MDMA Scrn (Ecstasy) (Negative) U Benzodiazepines Scrn (Negative) Urine Cocaine Screen (Negative) U Marijuana (THC) Screen (Negative) Urine Specific [place] (Normal) Ethyl Alcohol < 10 (<10) mg/dL Ur Creatinine (Normal) C. difficile Tox (PCR) Negative for c. diff (Negative) 08/22/25 08/22/25 Range/Units 14:27 14:27 WBC (4.5-11.0) X10^3/uL RBC (4.5-5.9) X10^6/uL Hgb (13.5-17.5) g/dL Hct (41-53) % MCV (80-100) fL MCH (26-34) PG MCHC (30-36) % RDW (11.6-14.8) % Plt Count (150-400) X10^3/uL Neut % (Auto) (50-75) % Lymph % (Auto) (25-40) % [place] % (Auto) (3-14) % Eos % (Auto) (2-4) % Baso % (Auto) (0-2) % Neut # (Auto) (5839-2444) /uL Lymph # (Auto) (1819-4792) /uL [place] # (Auto) (0-900) /uL Eos # (Auto) (0-450) /uL Baso # (Auto) (0-100) /uL Sodium (137-145) mmol/L Potassium (3.4-5.1) mmol/L Chloride (98-107) mmol/L Carbon Dioxide (22-32) mmol/L BUN (9-20) mg/dL Creatinine (0.66-1.25) mg/dL Estimated GFR (>60) mL/min BUN/Creatinine Ratio (6-22) Glucose (70-99) mg/dL Calcium (8.4-10.2) mg/dL Total Bilirubin (0.2-1.3) mg/dL AST (17-59) IU/L ALT (<50) IU/L Alkaline Phosphatase (38-126) U/L Ammonia (9-30) umol/L Total Protein (6.3-8.2) g/dL Albumin (3.5-5.0) g/dL Globulin (1.7-4.1) g/dL Albumin/Globulin Ratio (1.0-2.8) Lipase (23-300) U/L Urine Color [place] Urine Appearance Clear Urine pH 7.0 Normal (4.5-8.0) Ur Specific [place] <=1.005 (1.000-1.035) Urine Protein Negative (Negative) Urine Glucose (UA) Negative (Negative) g/dL Urine Ketones 2+ H (NEGATIVE) Urine Occult Blood Negative (Negative) Urine Nitrate Negative (Negative) Urine Bilirubin Negative (NEGATIVE) Urine Urobilinogen 1.0 (0.2) E.U./dL Ur Leukocyte Esterase Negative (NEGATIVE) Urine RBC 0-1/hpf (0-5/HPF) Urine WBC 0-1/hpf (0-5/HPF) Ur Squamous Epith Cells 1-5 /hpf (0-5/HPF) Urine Bacteria Occasional (0-1) (None) Ur Culture Indicated? Cult not indicated Vol Urine Centrifuged 10ml (spun) U Opiates 300ng/mL cut Negative (Negative) Ur Oxycodone Screen Negative (Negative) Urine Methadone Screen Negative (Negative) Ur Barbiturates Screen Negative (Negative) U Tricyclic Antidepress Negative (Negative) Ur Phencyclidine Scrn Negative (Negative) Ur Amphetamines Screen Negative (Negative) U Methamphetamines Scrn Negative (Negative) Ur MDMA Scrn (Ecstasy) Negative (Negative) U Benzodiazepines Scrn Negative (Negative) Urine Cocaine Screen Negative (Negative) U Marijuana (THC) Screen Positive H (Negative) Urine Specific [place] Normal (Normal) Ethyl Alcohol (<10) mg/dL Ur Creatinine Normal (Normal) C. difficile Tox (PCR) (Negative) Imaging Data CT scan - abdomen/pelvis: Radiologist's Impression: [address] [address] [address] Scan Report Signed Patient: Amaury Robertson MR#: [id number] : 1980 Acct:[id number] Age/Sex: 45 / M Date of Service: 08/22/25 Loc: ED Accession Number: [id number] Procedure: CT abdomen pelvis w con Ordering Provider: Millie Briggs PA-C PROCEDURE: CT ABDOMEN PELVIS W CON INDICATIONS: N/V/D, LLQ pain TECHNIQUE: After the administration of intravenous contrast, axial sections acquired from the lung bases to the pubic symphysis. Coronal and sagittal reformats were performed. For radiation dose reduction, the following was used: automated exposure control, adjustment of mA and/or kV according to patient size. COMPARISON: [facility], CT, CT ABDOMEN PELVIS W CON, 08/20/2025, 14:55. FINDINGS: Image quality: Diagnostic. Lower Chest: No significant findings. ABDOMEN: Liver: No solid mass. Gallbladder: No radiopaque gallstones or wall thickening. Biliary ducts: No biliary dilation. Pancreas: No ductal dilation. Spleen: Size is within normal limits. Adrenal Glands: No adrenal nodules. Kidneys and Ureters: No hydronephrosis. No solid mass. No complex renal cystic lesion which requires follow up. Stomach and Bowel: Bowel is of normal caliber without obstruction. Or multiple air-fluid levels are seen within the colon, which is an abnormal finding. Multiple areas of pneumatosis are seen throughout the colon . The appendix is normal. Peritoneum: No abnormal intraperitoneal fluid. No free air. Ventriculoperitoneal shunt tubing is intact, terminating in the right mid abdomen. Ventral Wall: No significant ventral hernia. Abdominal Nodes: No retroperitoneal or mesenteric adenopathy by size criteria. Vessels: Aorta and inferior vena cava are normal in size. Mesenteric arteries and veins demonstrate normal opacification. PELVIS: Pelvic Organs: There is unchanged enlargement of the prostate with coarse central calcification.. Bladder: No bladder wall thickening, accounting for underdistention. Pelvic Nodes: No enlarged lymph nodes. Miscellaneous: No inguinal hernias are seen. Bones: No aggressive osseous abnormality. IMPRESSION: Interval development of non-specific colonic findings which can be seen in the setting of enteritis, although there is no associated colonic wall thickening to suggest primary colitis. Normal appearance of a ventriculoperitoneal shunt. Dictated by: Esperanza Sorenson M.D. on 08/22/2025 at 12:30 Approved by: Esperanza Sorenson M.D. on 08/22/2025 at 12:39 MDM Narrative Medical decision making narrative: Multiple etiologies for patient's symptoms considered including, but not limited to: Acute appendicitis, colitis, gastroenteritis, UTI, cannabinoid hyperemesis, small-bowel obstruction, constipation Prior Charts reviewed: ED visit from 08/20/25 Reviewed physician notes from ED visit 2 days ago along with all labs, vital signs, and imaging from previous ED visit and today. Patient was just here 2 days ago with similar symptoms which improved with Dilaudid and Zofran and fluids in the ED 2 days ago but symptoms returned last night. He is now having left lower abdominal pain, diarrhea, and vomiting again. No fevers, no urinary symptoms. Due to his worsening symptoms and the dilated appendix seen on CT 2 days ago, CT needs to be repeated today along with labs. Patient given Dilaudid and Zofran IV along with fluids Appendix is now normal on his CT scan today, interval changes of some enteritis noted on the CT scan which is nonspecific. Otherwise unremarkable. Patient's symptoms have drastically improved with fluids, Dilaudid and Zofran here in the ED. UDS is positive for marijuana. Patient endorses daily marijuana use. We discussed the possibility of cannabinoid hyperemesis syndrome which can happen even in long-term marijuana users but patient refuses to acknowledge just possibility and did not want to discuss further. I did encourage him to stop marijuana usage for some time to see if his symptoms resolve but he did not want to discuss further. Since he is feeling so much better, he is eager to go home at this time. His lab work was unremarkable, vital signs have been stable throughout his stay, in his symptoms have improved. Stable for discharge Patient's symptoms improved over duration of stay with above-stated therapies. Findings and discharge diagnosis discussed with patient/family followed by verbalization of understanding Return precautions discussed with patient/family whom verbalize understanding of diagnosis and plan Discharge Plan Departure Patient Disposition: Home Clinical Impression: Nausea vomiting and diarrhea Abdominal pain Qualifiers: Abdominal location: left lower quadrant Qualified Code(s): R10.32 - Left lower quadrant pain Instructions: Nausea and Vomiting-Adult, DI for Cannabinoid Hyperemesis Syndrome Activity Restrictions/Additional Instructions: Thank you for choosing us to care for you today. You were seen today for left lower abdominal pain along with nausea, vomiting, and diarrhea. We did a CT scan today along with blood work which revealed some nonspecific inflammation in your small intestine but otherwise nothing alarming or specific. Your blood work was normal. We do not have any exact diagnosis for your abdominal pain and vomiting today. Your drug screen was positive for cannabis. There is a very common issue called cannabinoid hyperemesis which can happen even in someone who has used cannabis for many years. This usually causes abdominal pain and intractable vomiting and diarrhea. The only way to resolve this is to stop use of cannabis. I recommend trying this to see if your symptoms improve. If your symptoms return or he have any new or worsening symptoms please return for re-evaluation. Otherwise follow up with her primary care physician to discuss. Prescriptions: No Action (DME) Prevail Male Guard See Rx Instructions .Route .MEDSUPPLY Qty: 100 12RF Rx Instructions: As directed (DME) Male Incontinence Briefs Medium See Rx Instructions .Route .MEDSUPPLY Qty: 100 12RF Rx Instructions: As directed losartan 50 mg tablet 100 mg PO DAILY Qty: 180 3RF Rx Instructions: take in the AM diclofenac potassium 50 mg tablet 50 mg PO TID PRN (Reason: Pain (Scale Score 4-6)) Qty: 90 1RF Rx Instructions: TAKE 1 TABLET BY MOUTH THREE TIMES DAILY NEEDED FOR PAIN omeprazole 40 mg capsule,delayed release(DR/EC) 40 mg PO DAILY Qty: 120 0RF triamcinolone acetonide 0.5 % cream 1 applic topical BID PRN (Reason: psoriasis) Qty: 15 2RF amlodipine 2.5 mg tablet 2.5 mg PO DAILY oxycodone-acetaminophen 5-325 mg tablet 1 tab PO Q6H PRN (Reason: pain) Qty: 14 0RF ondansetron HCl 4 mg tablet 4 mg PO Q8H PRN (Reason: nausea and vomiting) Qty: 30 0RF Referrals: Yair Garcia, DO [Primary Care Provider, Family Practice] Stand Alone Forms: Patient Portal/API
[2025-08-22 12:27] LABS: Add Manual Diff / Slide Review NO; Hematocrit 45.2 % (41-53); Hemoglobin 15.5 g/dL (13.5-17.5); Lymphocytes Absolute Auto 1800 /uL (1100-4500); Mean Corpuscular HGB Conc 34.4 % (30-36); Mean Corpuscular Hemoglobin 29.3 PG (26-34); Mean Corpuscular Volume 85.3 fL (80-100); Platelet Count 313 X10^3/uL (150-400)
[2025-08-22] MEDS: LACTATED RINGERS 1,000 ML 1000 ML IV ×2 (12:29→14:22)
[2025-08-22] MEDS: ONDANSETRON 4 MG/2 ML INJ IV (12:29)
[2025-08-22 12:35] LABS: Alanine Aminotransferase 65 IU/L (<50); Albumin 5.1 g/dL (3.5-5.0); Albumin Globulin Ratio 1.3 (1.0-2.8); Alkaline Phosphatase 90 U/L (38-126); Blood Urea Nitrogen 11 mg/dL (9-20); Calcium 9.5 mg/dL (8.4-10.2); Carbon Dioxide 16 mmol/L (22-32); Chloride 108 mmol/L (98-107); Estimated Glomerular Filt Rate > 60 mL/min (>60); Globulin 4.0 g/dL (1.7-4.1); Glucose 119 mg/dL (70-99); HEMOLYSIS < 15 (0-50); Lipase 76 U/L (23-300); Potassium 3.3 mmol/L (3.4-5.1); Sodium 142 mmol/L (137-145); Total Protein 9.1 g/dL (6.3-8.2)
[2025-08-22 13:06] LABS: Ethanol (ETOH) < 10 mg/dL (<10)
[2025-08-22 13:08] LABS: Ammonia (NH3) < 9 umol/L (9-30)
[2025-08-22 13:27] LABS: Clostridium Difficile Tox PCR Negative for C. diff (Negative)
[2025-08-22 14:44] LABS: Appearance Urine UA CLEAR; Bilirubin Urine UA NEGATIVE (NEGATIVE); Color Urine UA ORANGE; Glucose Urine UA NEGATIVE (Negative); Ketones Urine UA 2+ (NEGATIVE); Leukocyte Esterase Urine UA NEGATIVE (NEGATIVE); Nitrite Urine UA NEGATIVE (Negative); Occult Blood Urine UA NEGATIVE (Negative); Protein Urine UA NEGATIVE (Negative); Specific Gravity Urine UA <=1.005 (1.000-1.035); Urobilinogen Urine UA 1.0 E.U./dL (0.2); pH Urine UA 7.0 (4.5-8.0)
[2025-08-22 14:47] LABS: UR Morphine/Opiate cutoff 300 Negative (Negative); Ur Specific Gravity Normal (Normal); Urine MDMA Negative (Negative); Urine Methamphetamines Negative (Negative); Urine Tetrahydrocannabinol Positive (Negative); Urine Tricyclic Antidepressant Negative (Negative)
[2025-08-22 14:49] LABS: Culture Indicated Urine Cult Not Indicated
[2025-08-24 11:24] LABS: E coli Shiga Toxin EIA Negative (Negative)
[2025-08-24 12:40] LABS: Salmonella/Shigella Screen Final report (.)
== END 2025-08-22 16:57 | disposition home or self-care (01) ==
PROVIDERS: Emergency Provider Physician Assistant; PCP Family Medicine
DX: R10.32 Left lower quadrant pain (principal); R11.2 Nausea with vomiting, unspecified; R19.7 Diarrhea, unspecified
CPT/HCPCS: 36415; 74177; 80053; 80305; 80320; 81001; 82140; 83690; 85025; 87045; 87205; 87493; 96361; 96374; 96375; 96376; 99284; J1171; J2405; J7120; Q9967